=== PATIENT | male | born 1975 | race Two or more races ===

== ENCOUNTER 2021-11-09 12:44 | Emergency (ER) | payer OTHER, SELFPAY ==
--- NOTE | 2021-11-09 14:19 | ED_ITS ---
HPI - Psych General Chief Complaint: Psychiatric Symptoms Stated Complaint: depression,anxiety,suicidal Time Seen by Provider: 11/09/21 14:19 Source: patient Mode of arrival: ambulatory Limitations: no limitations History of Present Illness MD complaint: suicidal ideation, feels depressed and substance abuse Onset (ago): day(s) (3) Duration: constant Relieving factors: none Exacerbating factors: drug use Context: recent drug abuse and other (has not used suboxone in 3 days) Associated psychiatric symptoms: depression and suicidal ideation Associated symptoms: denies other symptoms Treatments prior to arrival: none Related Data Allergies Allergy/AdvReac Type Severity Reaction Status Date / Time No Known Allergies Allergy Unverified 11/09/21 15:14 Review of Systems Review of Systems: Constitutional : No Fever, No Chills ENT/Mouth : No Ear Pain, No Nasal Congestion, No sore throat Eyes: No Eye Pain, No Swelling, No Redness Cardiovascular : No Chest Pain, No SOB Respiratory : No Cough, No Sputum, No Dyspnea Gastrointestinal : No Nausea, No Vomiting, No Diarrhea, No Hematochezia, No M tonie Genitourinary : No Dysuria, No Urinary Frequency, No Hematuria Musculoskeletal : No Myalgias Skin : No Skin Lesions, No rash Neuro : No Weakness, No Numbness, No Paresthesias, No Dizziness, No Headache Psych : positive Anxiety, positive Depression, positive SI no HI Heme/Lymph: No Lymphadenopathy Endocrine : No Polyuria, No Polydipsia All other systems reviewed and are negative PENDING SALE TO [facility] Past Medical History Medical History Active substance abuse Depression Social History Social History (Updated 11/09/21 @ 14:29 by Joelle Jenkins DO) Patient Tobacco Use Status: Current someday Tobacco user Substance Use Type: Crack/Cocaine and Heroin Advance Directives: No Advance Directives Information Provided: No Physical Exam Vital Signs: Vital Signs: Last Vital Signs Temp 98.1 F 11/09/21 15:15 Pulse 63 11/09/21 15:15 Resp 18 11/09/21 15:15 BP 148/101 H 11/09/21 15:15 Pulse Ox 99 11/09/21 15:15 BMI result Body Mass Index 29.2 Appearance: Alert. Oriented X3. No acute distress. calm and cooperative Eyes: Pupils equal, round and reactive to light. ENT: Pharynx normal. Neck: Normal inspection. Neck supple. CVS: Normal heart rate and rhythm. Pulses normal. Respiratory: No respiratory distress. Breath sounds normal. Abdomen: Soft and nontender. Skin: Skin warm and dry. Normal skin color. Normal skin turgor. Extremities: No lower extremity edema. No calf ttp Neuro: Oriented X 3. No motor deficit. No sensory deficit. CN2-12 intact Course Course Course Narrative: Physician observation started at 739pm Patient placed in physician observation because the patient needed more time for [facility]N to assess him to determine the need for inpatient psychiatric admission. At the time observation was started the patient's vitals were stable, patient is alert and oriented but slightly anxious, Neuro: nonfocal, CV RRR, Lungs clear MDM - Psych MDM Narrative Medical decision making narrative: 46 yo male with substance abuse has not taken his suboxone in 3 days using heroin/cocaine now reports SI at this time - denies medical complaints will obtain labs, COVID swab, BHN consult, PRN ativan for withdrawals, will attempt to wait to start suboxone until tonight since he was using and could be fentanyl. Lab Data Labs: Lab Results 11/09/21 11/09/21 Range/Units 14:23 14:23 Urine Opiates Screen POSITIVE H (Not Detect) Urine Fentanyl Screen POSITIVE H (Not Detect) Ur Barbiturates Screen Not Detected (Not Detect) Ur Phencyclidine Scrn Not Detected (Not Detect) Ur Amphetamines Screen Not Detected (Not Detect) U Benzodiazepines Scrn Not Detected (Not Detect) Urine Cocaine Screen POSITIVE H (Not Detect) U Marijuana (THC) Screen POSITIVE H (Not Detect) COVID-19 ([facility]) Negative (Negative) COVID-19 Clin Com See Note Discharge Plan Discharge Clinical Impression: Active substance abuse Patient Disposition: Still a Patient
[2021-11-09 14:46] LABS: COVID-19 Test Negative (Negative)
[2021-11-09 14:48] LABS: Amphetamine Screen Urine Not Detected (Not Detect); Barbiturates, Urine Not Detected (Not Detect); Benzodiazepines Screen Urine Not Detected (Not Detect); Cannabinoid Screen Urine POSITIVE (Not Detect); Cocaine Screen Urine POSITIVE (Not Detect); Fentanyl, urine POSITIVE (Not Detect); Opiate Screen Urine POSITIVE (Not Detect); Phencyclidine Screen Urine Not Detected (Not Detect)
[2021-11-09 15:15] VITALS: BP 148/101; PULSE 63; RESP 18; TEMP 36.7; O2SAT 99; BMI 29.2
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
[2021-11-09] MEDS: LORazepam 1 MG TABLET PO (17:40)
[2021-11-09 22:12] LABS: MANUAL DIFF FLAG NO
[2021-11-09 22:13] LABS: Basophils Percent Auto 0.5 % (0-2); Eosinophils Absolute Auto 0.2 X10*3/uL (0.0-0.4); Eosinophils Percent Auto 3.7 % (0-4); Hematocrit 40.3 % (42.0-52.0); Hemoglobin 13.7 g/dl (14.0-18.0); Imm Gran Abs Auto 0.01 X10*3/uL (0.00-0.03); Imm Gran Pct Auto 0.2 % (0.0-0.4); Lymphocytes Absolute Auto 2.5 X10*3/uL (1.2-4.9); Lymphocytes Percent Auto 40.4 % (20-40); Mean Corpuscular Hemoglobin 29.8 pg (27.0-33.0); Mean Corpuscular Volume 87.6 fL (80.0-98.0); Monocytes Absolute Auto 0.7 X10*3/uL (0.1-1.2); Neutrophils Absolute Auto 2.8 x10*3/uL (2.0-8.3); Neutrophils Percent Auto 44.2 % (45-73); Platelet Count 228 X10*3/uL (160-400); Red Cell Distribution Width 12.2 % (11.0-16.0); White Blood Count 6.3 X10*3/uL (4.8-10.8)
[2021-11-09 22:30] LABS: Ethanol < 10 mg/dL
[2021-11-09 22:39] LABS: Alanine Aminotransferase 17 U/L (0-40); Albumin Level 3.8 g/dL (3.5-5.0); Alkaline Phosphatase 96 U/L (39-117); Anion Gap 8 (12-20); Aspartate Amino Transferase 14 U/L (5-37); Bilirubin Direct < 0.2 mg/dL (0.0-0.5); Bilirubin Total 0.2 mg/dL (0.0-1.0); Blood Urea Nitrogen 14 mg/dL (9-16); Calcium 9.3 mg/dL (8.4-10.2); Carbon Dioxide 33 mmol/L (22-29); Chloride 104 mmol/L (96-108); Estimated Glomerular Filt Rate > 60; Glucose Random 131 mg/dL (60-115); Potassium 3.2 mmol/L (3.3-5.1); Sodium 142 mmol/L (135-145); Total Protein 6.8 g/dL (6.5-8.0)
[2021-11-10 00:03] VITALS: BP 138/92; PULSE 76; RESP 20; TEMP 37.6; O2SAT 96
--- NOTE | 2021-11-10 06:05 | PC.NURSE ---
Patient slept through the night, no distress observed/reported, behavior cooperative, and non concerning, patient is not on any medication at this time except suboxone, appetite good, elimination intact, disposition per [facility] is section 12 inpatient bed search, VSS, will continue to monitor
--- NOTE | 2021-11-10 07:25 | PC.NURSE ---
patient appears to remain asleep at present respirations are even and unlabored patient appears in no distress
[2021-11-10] MEDS: cloNIDine HCL 0.1 MG TABLET PO (16:27)
== END 2021-11-10 16:58 ==
PROVIDERS: Emergency Provider Emergency Medicine
DX: F19.10 Other psychoactive substance abuse, uncomplicated (principal); F11.20 Opioid dependence, uncomplicated; F14.10 Cocaine abuse, uncomplicated; F41.9 Anxiety disorder, unspecified; F32.A Depression, unspecified; R45.851 Suicidal ideations; F17.200 Nicotine dependence, unspecified, uncomplicated; Z20.822 Contact with and (suspected) exposure to COVID-19; F12.90 Cannabis use, unspecified, uncomplicated
CPT/HCPCS: 36415; 80048; 80076; 80307; 82077; 85025; 87635; 99285

== ENCOUNTER 2022-04-12 00:23 | Emergency (ER) | payer OTHER, SELFPAY ==
[2022-04-12 01:12] VITALS: BP 136/90; PULSE 90; RESP 18; TEMP 36.8; O2SAT 96; BMI 42.5
--- NOTE | 2022-04-12 01:20 | PC.NURSE ---
Pt is refusing labs. Only wants something for nausea. Will notify provider.
[2022-04-12 01:47] LABS: COVID-19 Test Negative (Negative); IDNOW Serial# 16C4AD1C; Influenza A Negative (Negative); Influenza B2 Negative (Negative)
--- NOTE | 2022-04-12 01:49 | PC.NURSE ---
This RN attempt to draw pt labs, when this RN entered the room pt and pt visitor were gone, charge made aware. pt did not have an IV, pt did not receive medications.
== END 2022-04-12 02:08 | disposition left against medical advice (07) ==
PROVIDERS: Emergency Provider Emergency Medicine Emergency Medical Services
DX: R11.2 Nausea with vomiting, unspecified (principal); Z20.822 Contact with and (suspected) exposure to COVID-19
CPT/HCPCS: 87502; 87635; 99283; 99284

== ENCOUNTER 2022-04-15 01:58 | Emergency (ER) | payer OTHER, SELFPAY ==
[2022-04-15 02:16] VITALS: BP 146/97; PULSE 89; RESP 15; TEMP 37; O2SAT 94; BMI 31.5
--- NOTE | 2022-04-15 02:41 | PC.NURSE ---
pt bottom rt molar is cracked. states he has not had any fevers at home. scheduled to see dentist next week. cannot tolerate pain
== END 2022-04-15 03:31 | disposition left against medical advice (07) ==
PROVIDERS: Emergency Provider Emergency Medicine
DX: K08.89 Other specified disorders of teeth and supporting structures (principal)
CPT/HCPCS: 99281; 99284

== ENCOUNTER 2022-06-13 02:21 | Emergency (ER) | payer OTHER, SELFPAY ==
[2022-06-13 02:23] VITALS: BP 128/82
== END 2022-06-13 03:01 | disposition left against medical advice (07) ==
PROVIDERS: Emergency Provider Emergency Medicine
DX: M54.50 Low back pain, unspecified (principal)

== ENCOUNTER 2022-10-02 20:49 | Emergency (ER) | payer OTHER, SELFPAY ==
[2022-10-02 20:59] VITALS: BP 190/90; PULSE 110; RESP 18; O2SAT 97; BMI 24.8
--- NOTE | 2022-10-02 21:20 | PC.NURSE ---
pt alert and oriented steady gait, pt left on his own duing, pt skin warm and dry. no s/s of resp distress.
== END 2022-10-02 21:23 | disposition left against medical advice (07) ==
PROVIDERS: Emergency Provider Emergency Medicine Emergency Medical Services
DX: Z04.1 Encounter for examination and observation following transport accident (principal)
CPT/HCPCS: 99282

== ENCOUNTER 2022-10-04 00:41 | Emergency (ER) | payer OTHER, SELFPAY ==
[2022-10-04] VITALS (7 sets, daily range): BP systolic 115–148; BP diastolic 88–100; PULSE 74–90; RESP 15–20; TEMP 36.3–37.1; O2SAT 96–97; BMI 24.3
--- NOTE | 2022-10-04 01:23 | ED.GENADULT ---
HPI - General Adult General Chief complaint: General Medical Stated complaint: requesting Detox Time Seen by Provider: 10/04/22 01:23 Source: patient Mode of arrival: EMS Limitations: no limitations History of Present Illness HPI narrative: 46-year-old male who presents emergency by ambulance for evaluation of opiate withdrawal syndrome and requesting detox. The patient states that he was in a Suboxone program but has not been taking Suboxone for 1 month. He states that he has been sniffing 10 bags of heroin per day. He states that he last used heroin 2 days prior. He states that he is feeling dope sick. He complains body aches, bone pain, nausea, vomiting, sweats and diarrhea. He denied chest pain or shortness of breath. He denied fever, chills or cough. Related Data Home Medications Medication Instructions Recorded Confirmed buprenorphine 8 mg-naloxone 2 mg 1 strip sublingual BID 11/09/21 11/09/21 sublingual film (Suboxone) Previous Rx's Medication Instructions Recorded ondansetron 4 mg disintegrating 4 mg PO Q6-8H PRN nausea and 10/04/22 tablet vomiting #14 tabs Allergies Allergy/AdvReac Type Severity Reaction Status Date / Time No Known Allergies Allergy Unverified 11/09/21 15:14 Review of Systems Review of Systems: Yes all other systems are reviewed and are negative PMFSH Past Medical History [facility] Narrative: Past medical history: Heroin use disorder, depression, hypertension-noncompliant with medications. Past surgical history: None. Social history: He smokes 1 pack of cigarettes per day times 10 years. He denies alcohol use. He does admit to using heroin 10 bags intranasally daily. Medical History Active substance abuse Depression Social History Social History Alcohol intake: unknown Patient Tobacco Use Status: Tobacco use Unknown Substance Use Type: Crack/Cocaine and Heroin Advance Directives: No Advance Directives Information Provided: Yes Physical Exam ED Vital Signs: Vital Signs - 24 hr 10/04/22 00:49 10/04/22 03:59 10/04/22 06:36 Temperature 98.3 F 98.1 F 97.3 F Pulse Rate 75 74 90 Respiratory Rate 16 20 19 Blood Pressure 147/98 H 148/100 H 122/96 H Pulse Oximetry 97 96 96 Oxygen Delivery Method Room Air Room Air Room Air BMI result Body Mass Index 24.3 Const Other: Awake, alert, male patient, tremulous, answers questions appropriate HENMT Head: Yes normal to inspection, Yes normocephalic and Yes atraumatic Ears: external ears normal General nose exam: Normal external nose present Face and sinus: Yes normal facial exam Mouth: Normal oral and palatal mucosa present Throat: Yes posterior oropharynx normal Eyes General: appearance normal, both eyes and all related structures Pupils: Equal, round and reactive pupils present Neck Neck: Yes normal visual inspection, Yes no lymphadenopathy, Yes trachea midline and Yes supple Chest Chest palpation & inspection: normal inspection of the chest and normal palpation of entire chest wall Resp Effort & Inspection: normal respiratory effort and able to speak in complete sentences Auscultation: clear to auscultation bilaterally Cardio Rate: regular rate Rhythm: regular rhythm Heart sounds: S1 normal heart sound present, S2 normal heart sound present and no murmurs GI Inspection: Yes normal to inspection Palpation (GI): Soft to palpation, nontender and no guarding Auscultation: normal bowel sounds General: Yes no CVA tenderness Back/Spine/Pelvis Back: no CVA tenderness Skin General skin exam: no rashes or lesions noted Neuro Cranial nerves: Yes CN's II-XII intact bilaterally and Yes Equal, round and reactive pupils present Cognition (Neuro): normal cognition Motor exam (neuro): 5/5 motor strength present throughout Extrem General: Yes normal to inspection Psych Appearance: grossly normal Speech and movement: Normal speech and movement present Affect: normal affect Attitude: cooperative Thought process: Normal thought process present Thought content: Normal thought content present Course Course Course Narrative: 46-year-old male with a history of opiate use disorder who has been using intranasal heroin 10 bags per day for the last month who states that he is not used in 2 days and feels ?dope sick? and is requesting evaluation to get into a detox program. Patient does appear to be withdrawing from opiates. His physical examination is otherwise unremarkable. I did order laboratory evaluation includes CBC, CMP, urine tox screen, alcohol level, COVID-19, influenza and RSV testing. Patient will be treated with Suboxone 8/2 mg sublingually now see if this improves his withdrawal symptoms. 0434: Start physician observation: Patient's laboratory evaluation was unremarkable. Patient's RSV/flu/COVID tests were negative. Alcohol was below detectable limits. Urine drug screen is pending collection. The patient required a 2nd dose of Suboxone 8/2 mg sublingually. I did order Suboxone 8/2 mg b.i.d. while the patient is here in the emergency department. I did order a care to consult to evaluate the patient for detox program. The patient would like to continue with Suboxone. The patient will be kept in physician observation in the emergency department until appropriate disposition can be determined. 0642: Continue physician observation: The patient does feel better after receiving the 2 doses of Suboxone but does have persistent nausea. I did order Suboxone 8 mg/2 mg b.i.d. and the patient will get a another dose this morning. Patient is waiting for evaluation by care team. At the end of my shift, patient's care was turned over to my colleague, Dr. Yon Hamilton. Medications Administered Discontinued Medications Generic Name Dose Route Start Last Admin Trade Name Fregwyn PRN Reason Stop Dose Admin Buprenorphine/Naloxone 1 film 10/04/22 01:31 10/04/22 02:23 Buprenorphine/Naloxone 8/2 Mg Film SUBLINGUAL 10/04/22 01:32 1 film ONCE ONE Administration Buprenorphine/Naloxone 1 film 10/04/22 04:15 10/04/22 04:40 Buprenorphine/Naloxone 8/2 Mg Film SUBLINGUAL 10/04/22 04:16 1 film ONCE STA Administration Medical Decision Making Lab Data Result diagrams: 10/04/22 02:32 10/04/22 02:32 Labs: Lab Results 10/04/22 10/04/22 10/04/22 Range/Units 00:55 02:32 02:32 WBC 9.0 (4.8-10.8) X10*3/uL RBC 5.16 (4.60-5.80) X10*6/uL Hgb 15.2 (14.0-18.0) g/dl Hct 44.9 (42.0-52.0) % MCV 87.0 (80.0-98.0) fL MCH 29.5 (27.0-33.0) pg MCHC 33.9 (31.0-36.0) g/dl RDW 11.2 (11.0-16.0) % Plt Count 370 D (160-400) X10*3/uL MPV 9.5 (9.4-12.4) fL Immature Gran % (Auto) 0.3 (0.0-0.4) % Neut % (Auto) 72.3 (45-73) % Lymph % (Auto) 20.5 (20-40) % [place] % (Auto) 5.6 (2-11) % Eos % (Auto) 0.7 (0-4) % Baso % (Auto) 0.6 (0-2) % Lymph # (Auto) 1.8 (1.2-4.9) X10*3/uL [place] # (Auto) 0.5 (0.1-1.2) X10*3/uL Eos # (Auto) 0.1 (0.0-0.4) X10*3/uL Baso # (Auto) 0.1 (0.0-0.2) X10*3/uL Abs Immat Gran (auto) 0.03 (0.00-0.03) X10*3/uL Absolute Neuts (auto) 6.5 (2.0-8.3) x10*3/uL Absolute Nucleated RBC 0.000 (0.0-0.012) X10*3/uL Nucleated RBC % (auto) 0.0 (0.0-0.2) /100WBC Sodium 138 (135-145) mmol/L Potassium 3.9 D (3.3-5.1) mmol/L Chloride 105 (96-108) mmol/L Carbon Dioxide 24 (22-29) mmol/L Anion Gap 13 (12-20) BUN 8 L (9-16) mg/dL Creatinine 0.98 (0.5-1.4) mg/dL Estim Creat Clear Calc 95.1 Estimated GFR > 60 Random Glucose 98 (60-115) mg/dL Calcium 9.4 (8.4-10.2) mg/dL Total Bilirubin 0.8 (0.0-1.0) mg/dL AST 12 (5-37) U/L ALT 9 (0-40) U/L Alkaline Phosphatase 86 (39-117) U/L Total Protein 6.9 (6.5-8.0) g/dL Albumin 3.9 (3.5-5.0) g/dL Ethyl Alcohol < 10 mg/dL Influenza Type A (PCR) NEGATIVE (Negative) Influenza Type B (PCR) NEGATIVE (Negative) RSV RNA Qual (PCR) NEGATIVE (Negative) SARS-CoV-2 RNA (RT-PCR) NEGATIVE (Negative) Discharge Plan Discharge Clinical Impression: Opiate withdrawal, Opiate use Patient Disposition: Still a Patient Prescriptions: New ondansetron 4 mg tablet,disintegrating 4 mg PO Q6-8H PRN (Reason: nausea and vomiting) Qty: 14 0RF No Action buprenorphine-naloxone [Suboxone] 8-2 mg film 1 strip sublingual BID
[2022-10-04 01:37] LABS: Influenza A PCR NEGATIVE (Negative); Influenza B PCR NEGATIVE (Negative); Resp Syncy Virus RNA Qual PCR NEGATIVE (Negative); SARS COV2 PCR INHOUSE NEGATIVE (Negative)
[2022-10-04] MEDS: Buprenorphine/Naloxone 8/2 mg FILM 1 FILM SUBLINGUAL ×3 (02:23→10:55)
[2022-10-04 02:36] LABS: MANUAL DIFF FLAG NO
[2022-10-04 02:39] LABS: Basophils Absolute Auto 0.1 X10*3/uL (0.0-0.2); Basophils Percent Auto 0.6 % (0-2); Eosinophils Absolute Auto 0.1 X10*3/uL (0.0-0.4); Eosinophils Percent Auto 0.7 % (0-4); Hematocrit 44.9 % (42.0-52.0); Hemoglobin 15.2 g/dl (14.0-18.0); Imm Gran Abs Auto 0.03 X10*3/uL (0.00-0.03); Imm Gran Pct Auto 0.3 % (0.0-0.4); Lymphocytes Absolute Auto 1.8 X10*3/uL (1.2-4.9); Lymphocytes Percent Auto 20.5 % (20-40); Mean Corpuscular HGB Conc 33.9 g/dl (31.0-36.0); Mean Corpuscular Hemoglobin 29.5 pg (27.0-33.0); Mean Platelet Volume 9.5 fL (9.4-12.4); Monocytes Absolute Auto 0.5 X10*3/uL (0.1-1.2); Monocytes Percent Auto 5.6 % (2-11); Neutrophils Absolute Auto 6.5 x10*3/uL (2.0-8.3); Neutrophils Percent Auto 72.3 % (45-73); Platelet Count 370 X10*3/uL (160-400); Red Blood Count 5.16 X10*6/uL (4.60-5.80); Red Cell Distribution Width 11.2 % (11.0-16.0)
[2022-10-04 03:01] LABS: Alanine Aminotransferase 9 U/L (0-40); Albumin Level 3.9 g/dL (3.5-5.0); Alkaline Phosphatase 86 U/L (39-117); Anion Gap 13 (12-20); Aspartate Amino Transferase 12 U/L (5-37); Bilirubin Total 0.8 mg/dL (0.0-1.0); Blood Urea Nitrogen 8 mg/dL (9-16); Calcium 9.4 mg/dL (8.4-10.2); Carbon Dioxide 24 mmol/L (22-29); Chloride 105 mmol/L (96-108); Creatinine Clr Calc Pharmacy 95.1; Estimated Glomerular Filt Rate > 60; Ethanol < 10 mg/dL; Glucose Random 98 mg/dL (60-115); Potassium 3.9 mmol/L (3.3-5.1); Sodium 138 mmol/L (135-145); Total Protein 6.9 g/dL (6.5-8.0)
--- NOTE | 2022-10-04 04:18 | PC.NURSE ---
Pt's condition had improved following suboxone administration but has now started to change. Pt reported an episode of vomiting. Pt's HR and BP have increased. These symptoms did not occur immediately after receiving suboxone so it is unlikely that pt is experiencing precipitated withdrawal. Provider made aware of pt condition. Provider ordered another dose of suboxone to treat opioid withdrawal.
--- NOTE | 2022-10-04 10:16 | MHC.RECOVRN ---
This policy writer typist met w/ pt. Pt was sleeping upon entering room, awake to verbal stimuli. Pt states has been using 10 bags of heroin IN daily for past month. Pt states prior to this month was receiving Suboxone for 2 years and in recovery. Pt states has hx of treatment, including one week ago went to detox at [facility]. Pt states did not complete detox and left [facility]. Pt reports started using opiates at age 35, no hx of overdoses. Pt interested in detox, pt preference is to stay in [facility] for treatment. Pt reports body ache, chills, restless legs, visibly diaphoretic.
--- NOTE | 2022-10-04 11:01 | PHA.MEDREC ---
Pharmacy Consult ? Medication Reconciliation Pharmacy has completed the medication reconciliation.
[2022-10-04 12:47] LABS: Amphetamine Screen Urine Not Detected (Not Detect); Barbiturates, Urine Not Detected (Not Detect); Benzodiazepines Screen Urine Not Detected (Not Detect); Cannabinoid Screen Urine Not Detected (Not Detect); Cocaine Screen Urine POSITIVE (Not Detect); Fentanyl, urine POSITIVE (Not Detect); Opiate Screen Urine POSITIVE (Not Detect); Phencyclidine Screen Urine Not Detected (Not Detect)
--- NOTE | 2022-10-04 13:47 | MHC.RECOVRN ---
This typewriter mechanic spoke w/ Agusto at [facility] and confirmed, Pt has been accepted to [facility], admission time 15:00. Pt aware and agreeable. [employer] scheduled for pickup at 2:30pm. Provider aware of plan of care.
== END 2022-10-04 14:24 ==
PROVIDERS: Emergency Provider Emergency Medicine Emergency Medical Services
DX: F11.23 Opioid dependence with withdrawal (principal)
CPT/HCPCS: 0241U; 36415; 80053; 80307; 82077; 85025; 99284

== ENCOUNTER 2022-11-03 03:17 | Emergency (ER) | payer OTHER, SELFPAY ==
[2022-11-03 03:25] VITALS: BP 152/94; PULSE 102; O2SAT 96
[2022-11-03 03:26] VITALS: BP 150/99; PULSE 98; RESP 18; TEMP 36.8; O2SAT 97; BMI 40.1
--- NOTE | 2022-11-03 04:24 | PC.NURSE ---
Pt called to take back to a room, pt not in waiting room.
--- NOTE | 2022-11-03 04:45 | PC.NURSE ---
Pt called to go to room, pt not in waiting room.
--- NOTE | 2022-11-03 04:56 | PC.NURSE ---
Pt called to go to a room, pt not in waiting room.
== END 2022-11-03 04:58 | disposition left against medical advice (07) ==
PROVIDERS: Emergency Provider Emergency Medicine
DX: M54.50 Low back pain, unspecified (principal)
CPT/HCPCS: 99281

== ENCOUNTER 2023-01-30 09:23 | Emergency (ER) | payer OTHER, SELFPAY ==
[2023-01-30 09:25] VITALS: BP 136/78; PULSE 63; O2SAT 99
[2023-01-30 09:33] VITALS: BP 131/91; PULSE 66; RESP 18; TEMP 36.6; O2SAT 98; BMI 30.7
--- NOTE | 2023-01-30 09:59 | ED_ITS ---
HPI - Psych General Chief Complaint: General Medical Stated Complaint: WANTS DETOX,LAST DRINK ONE DAY PER EMS Time Seen by Provider: 01/30/23 09:41 Source: patient Mode of arrival: ambulatory Limitations: no limitations History of Present Illness HPI Narrative: 47yoM with a PMHX of heroin substance abuse with presenting to the ER with request for detox. Reports that he last Lyft heroin yesterday. Reports he uses approximately 1-1/2 bundles a day. Reports he was last at [facility] a few months ago which helped. He is not homeless. He denies any other drug or alcohol usage. He denies any fevers, chills, dizziness, headaches, neck pain/stiffness, trouble swallowing or breathing, chest pain or shortness of breath, dyspnea on exertion orthopnea, palpitations, paresthesias, nausea/vomiting/diarrhea constipation, black or bloody stools, dysuria, penile discharge, rashes, recent falls or traum a, recent sick contacts, SI/HI/auditory or visual hallucinations thoughts of self-injury or any other symptoms complaints or concerns at this time. MD complaint: substance abuse (Sniffing heroin) and other (Requesting detox) Onset (ago): year(s) Duration: constant History of same: Yes Relieving factors: none Exacerbating factors: drug use Context: recent drug abuse (Last use last night) Associated symptoms: denies other symptoms Treatments prior to arrival: none Related Data Home Medications Medication Instructions Recorded Confirmed buprenorphine 8 mg-naloxone 2 mg 1 strip sublingual BID 11/09/21 11/09/21 sublingual film (Suboxone) albuterol sulfate 90 mcg/actuation 2 puff inhalation Q4-6H PRN 10/04/22 10/04/22 aerosol inhaler (ProAir HFA) Wheezing gabapentin 300 mg capsule 1 cap PO TID 10/04/22 10/04/22 meloxicam 15 mg tablet 1 tab PO DAILY 10/04/22 10/04/22 Previous Rx's Medication Instructions Recorded ondansetron 4 mg disintegrating 4 mg PO Q6-8H PRN nausea and 10/04/22 tablet vomiting #14 tabs Allergies Allergy/AdvReac Type Severity Reaction Status Date / Time No Known Allergies Allergy Unverified 11/09/21 15:14 Review of Systems Review of Systems: Constitutional : No Fever, No Chills ENT/Mouth : No Ear Pain, No Nasal Congestion, No sore throat Eyes: No Eye Pain, No Swelling, No Redness Cardiovascular : No Chest Pain, No SOB Respiratory : No Cough, No Sputum, No Dyspnea Gastrointestinal : No ingestions, No Nausea, No Vomiting, No Diarrhea, No Hematochezia, No Melena Genitourinary : No Dysuria, No Urinary Frequency, No Hematuria Musculoskeletal : No Myalgias Skin : No Skin Lesions, No rash Neuro : No Weakness, No Numbness, No Paresthesias, No Dizziness, No Headache Psych : No Anxiety, No Depression,No SI, No thoughts of self injury, No HI, No AVH, Heme/Lymph: No Lymphadenopathy Endocrine : No Polyuria, No Polydipsia + substance abuse Yes all other systems are reviewed and are negative PENDING SALE TO [facility] Past Medical History Attestation statement: The following information was validated with the patient. Source: old records reviewed and nursing notes reviewed Medical History Active substance abuse Depression Social History Social History Alcohol intake: unknown Patient Tobacco Use Status: Tobacco use Unknown Substance Use Type: Crack/Cocaine and Heroin Advance Directives: No Advance Directives Information Provided: No Physical Exam Vital Signs: Vital Signs: Last Vital Signs Temp 98 F 01/30/23 09:33 Pulse 66 01/30/23 09:33 Resp 18 01/30/23 09:33 BP 131/91 H 01/30/23 09:33 Pulse Ox 98 01/30/23 09:33 O2 Del Method Room Air 01/30/23 09:33 BMI result Body Mass Index 30.7 vital signs have been reviewed as normal and appeared to be correct. Blood pressure 131/01. Heart rate normal. Respiration rate normal. Temperature normal. Oxygen saturation normal. Appearance: Alert. Oriented X3. No acute distress. Head: Normal external exam. Normocephalic. Atraumatic. No Marquez signs noted. No raccoon eyes noted Eyes: PERRLA. EOMI. Conjunctiva and sclera normal. Eyelids normal. ENT: EAC normal. TM's Normal. Pharynx normal. Uvula midline. Moist mucous membranes. No trismus noted. No drooling noted. No muffled voice noted. Neck: Normal inspection. Neck supple. FROM. No adenopathy. Thyroid Normal. No meningeal signs. No neck mass noted. CVS: Normal heart rate and rhythm. Heart sound normal. No murmurs noted. Pulses normal throughout. Respiratory: No respiratory distress. Painless inspiration. Breath sounds normal. No wheezes/rales/rhonchi noted. Chest nontender. No accessory muscle usage noted or decreased air movement noted. Abdomen: Soft and nontender. Bowel sounds normal in all 4 quadrants. No distention noted. No organomegaly noted. No visible injury noted. Back: No CVA tenderness. Full range of motion noted. Skin: Skin warm and dry. Normal skin color. Normal skin turgor. No rashes/lesions/lacerations noted. Extremities: No lower extremity edema. Extremities exhibit normal range of motion. Extremities nontender. Neuro: Oriented X 3. No motor deficit. No sensory deficit. Reflexes normal. CN's II-XII intact bilaterally? Psych: Appearance grossly normal, well-kept, mental status normal, speech and movement normal, speech clear, normal affect. Is cooperative. Normal thought process. Normal thought content. Normal good insight. Judgment good. Course Course Course Narrative: 10am - This patient presents with request for detox from heroin useage. Reports he uses approximately 1-1/2 bundles that he sniffed daily. Last use last night. Miriam das has an apartment is not homeless. Denies any SI/HI/auditory or visual sensation or thoughts of self-injury. Presentation not consistent with acute organic causes to include delirium, dementia or drug induced disorders (acute ingestions or withdrawal; no evidence of toxidrome). Given the H&P, I suspect this patient is NOT suicidal/homicidal/gravely disabled and will NOT require psychiatric care. Although will benefit from detox. At this time will obtain labs including EtOH and drugs of abuse screen. Then consult care team for possible detox placement will re-evaluate. Reevaluation(s) Reevaluation #1: Labs are all within normal limits. Patient positive for opioids/fentanyl and cocaine negative for EtOH negative for COVID. Care team reported that there are no beds at this time due to patient is banned from [facility]. Therefore no other detox beds are available at this time. Patient continues to deny any SI/HI/auditory or visual hallucinations thoughts of self-injury therefore patient will be discharged with instructions to continue calling detox centers himself and to return if any new or worsening symptoms. He understands agrees with the plan. Time: 18:57 Medications Administered Discontinued Medications Generic Name Dose Route Start Last Admin Trade Name Garrett PRN Reason Stop Dose Admin Lorazepam 1 mg 01/30/23 18:02 01/30/23 18:13 Lorazepam 1 Mg Tablet PO 01/30/23 18:03 1 mg ONCE ONE Administration Ondansetron HCl 4 mg 01/30/23 17:59 01/30/23 18:13 Ondansetron Odt 4 Mg Tab.Rapdis TRANSLINGU 01/30/23 18:00 4 mg ONCE ONE Administration Medical Decision Making Lab Data [facility] Lab Attestation statement: I reviewed the patient's lab results. 01/30/23 10:36 01/30/23 10:36 Labs: Lab Results 01/30/23 01/30/23 01/30/23 Range/Units 10:36 10:36 10:36 WBC 7.1 (4.8-10.8) X10*3/uL RBC 5.14 (4.60-5.80) X10*6/uL Hgb 15.2 (14.0-18.0) g/dl Hct 44.9 (42.0-52.0) % MCV 87.4 (80.0-98.0) fL MCH 29.6 (27.0-33.0) pg MCHC 33.9 (31.0-36.0) g/dl RDW 11.6 (11.0-16.0) % Plt Count 223 D (160-400) X10*3/uL MPV 10.1 (9.4-12.4) fL Immature Gran % (Auto) 0.3 (0.0-0.4) % Neut % (Auto) 74.5 H (45-73) % Lymph % (Auto) 18.3 L (20-40) % [place] % (Auto) 5.0 (2-11) % Eos % (Auto) 1.3 (0-4) % Baso % (Auto) 0.6 (0-2) % Lymph # (Auto) 1.3 (1.2-4.9) X10*3/uL [place] # (Auto) 0.4 (0.1-1.2) X10*3/uL Eos # (Auto) 0.1 (0.0-0.4) X10*3/uL Baso # (Auto) 0.0 (0.0-0.2) X10*3/uL Abs Immat Gran (auto) 0.02 (0.00-0.03) X10*3/uL Absolute Neuts (auto) 5.3 (2.0-8.3) x10*3/uL Absolute Nucleated RBC 0.000 (0.0-0.012) X10*3/uL Nucleated RBC % (auto) 0.0 (0.0-0.2) /100WBC Sodium 141 (135-145) mmol/L Potassium 4.3 (3.3-5.1) mmol/L Chloride 109 H (96-108) mmol/L Carbon Dioxide 22 (22-29) mmol/L Anion Gap 14 (12-20) BUN 19 H (9-16) mg/dL Creatinine 1.02 (0.5-1.4) mg/dL Estim Creat Clear Calc 102.3 Estimated GFR > 60 Random Glucose 115 (60-115) mg/dL Calcium 9.1 (8.4-10.2) mg/dL Magnesium 2.3 (1.6-2.6) mg/dL Total Bilirubin 0.7 (0.0-1.0) mg/dL AST 16 (5-37) U/L ALT 12 (0-40) U/L Alkaline Phosphatase 77 (39-117) U/L Total Protein 6.5 (6.5-8.0) g/dL Albumin 4.0 (3.5-5.0) g/dL Ethyl Alcohol < 10 mg/dL COVID-19 ([facility]) Negative (Negative) COVID-19 Clin Com See Note External Record Review I reviewed the patient's prior ER visits that are accessible in our system. Chronic Conditions Patient?s care impacted by: Other (Substance abuse) Discharge Plan Discharge Clinical Impression: Active substance abuse Patient Disposition: Home, Self-Care Instructions: Polysubstance Abuse (ED) Prescriptions: No Action buprenorphine-naloxone [Suboxone] 8-2 mg film 1 strip sublingual BID ondansetron 4 mg tablet,disintegrating 4 mg PO Q6-8H PRN (Reason: nausea and vomiting) Qty: 14 0RF meloxicam 15 mg tablet 1 tab PO DAILY gabapentin 300 mg capsule 1 cap PO TID albuterol sulfate [ProAir HFA] 90 mcg/actuation HFA aerosol inhaler 2 puff INHALATION Q4-6H PRN (Reason: Wheezing) Referrals: Physician,None [Primary Care Provider] - 2 days (Your PCP as needed)
--- NOTE | 2023-01-30 10:33 | ECG_ITS ---
Test Reason : DETOX Blood Pressure : / mmHG Vent. Rate : 088 BPM Atrial Rate : 088 BPM P-R Int : 156 ms QRS Dur : 092 ms QT Int : 408 ms P-R-T Axes : 070 065 058 degrees QTc Int : 493 ms Normal sinus rhythm Prolonged QT Abnormal ECG No previous ECGs available Referred By: Christina Wyatt Electronically Signed By:LORIN FOSTER
[2023-01-30 10:41] LABS: MANUAL DIFF FLAG NO
[2023-01-30 10:44] LABS: Basophils Percent Auto 0.6 % (0-2); Eosinophils Absolute Auto 0.1 X10*3/uL (0.0-0.4); Eosinophils Percent Auto 1.3 % (0-4); Hematocrit 44.9 % (42.0-52.0); Hemoglobin 15.2 g/dl (14.0-18.0); Imm Gran Abs Auto 0.02 X10*3/uL (0.00-0.03); Imm Gran Pct Auto 0.3 % (0.0-0.4); Lymphocytes Absolute Auto 1.3 X10*3/uL (1.2-4.9); Lymphocytes Percent Auto 18.3 % (20-40); Mean Corpuscular HGB Conc 33.9 g/dl (31.0-36.0); Mean Corpuscular Hemoglobin 29.6 pg (27.0-33.0); Mean Corpuscular Volume 87.4 fL (80.0-98.0); Mean Platelet Volume 10.1 fL (9.4-12.4); Monocytes Absolute Auto 0.4 X10*3/uL (0.1-1.2); Neutrophils Absolute Auto 5.3 x10*3/uL (2.0-8.3); Neutrophils Percent Auto 74.5 % (45-73); Platelet Count 223 X10*3/uL (160-400); Red Blood Count 5.14 X10*6/uL (4.60-5.80); Red Cell Distribution Width 11.6 % (11.0-16.0); White Blood Count 7.1 X10*3/uL (4.8-10.8)
[2023-01-30 10:57] LABS: COVID-19 Test Negative (Negative); IDNOW Serial# 08D9AD1C
[2023-01-30 11:02] LABS: Alanine Aminotransferase 12 U/L (0-40); Alkaline Phosphatase 77 U/L (39-117); Anion Gap 14 (12-20); Aspartate Amino Transferase 16 U/L (5-37); Bilirubin Total 0.7 mg/dL (0.0-1.0); Blood Urea Nitrogen 19 mg/dL (9-16); Calcium 9.1 mg/dL (8.4-10.2); Carbon Dioxide 22 mmol/L (22-29); Chloride 109 mmol/L (96-108); Creatinine Clr Calc Pharmacy 102.3; Estimated Glomerular Filt Rate > 60; Ethanol < 10 mg/dL; Glucose Random 115 mg/dL (60-115); Magnesium 2.3 mg/dL (1.6-2.6); Potassium 4.3 mmol/L (3.3-5.1); Sodium 141 mmol/L (135-145); Total Protein 6.5 g/dL (6.5-8.0)
[2023-01-30] MEDS: Ondansetron ODT 4 MG TAB.RAPDIS TRANSLINGU (18:13)
[2023-01-30] MEDS: LORazepam 1 MG TABLET PO (18:13)
--- NOTE | 2023-01-30 18:19 | MHC.CARE ---
CARE team clinician met with pt to discuss treatment options. Pt is advocating to be discharged to detox. [facility] stated pt is on do not admit list unless he is being d/c from an inpatient unit. Pt has historically presented to [facility] without psych meds and leaves prior to completing treatment. CARE team clinician exhausted search for male detox bed within 100 mile radius. Pt denies SI/HI/AVH. CARE team consulted with ED JEAN-CLAUDE Wyatt, plan is for pt to be discharged home and he will follow up with detox from the community
== END 2023-01-30 20:03 | disposition home or self-care (01) ==
PROVIDERS: Physician Assistant Medical; Emergency Provider Emergency Medicine
DX: F11.10 Opioid abuse, uncomplicated (principal); F14.10 Cocaine abuse, uncomplicated; Z20.822 Contact with and (suspected) exposure to COVID-19; Z20.828 Contact with and (suspected) exposure to other viral communicable diseases; Z79.899 Other long term (current) drug therapy; Z71.51 Drug abuse counseling and surveillance of drug abuser
CPT/HCPCS: 36415; 80053; 82077; 83735; 85025; 87635; 93005; 99283

== ENCOUNTER 2023-03-28 11:45 | Emergency (ER) | payer MEDICAID, SELFPAY ==
[2023-03-28 11:50] VITALS: BP 140/90; PULSE 66; O2SAT 97
--- NOTE | 2023-03-28 12:15 | ED_ITS ---
HPI - General Adult General Chief complaint: ETOH/Substance Use Stated complaint: wants detox per ems Time Seen by Provider: 03/28/23 13:44 Source: patient Mode of arrival: ambulatory Limitations: no limitations History of Present Illness HPI narrative: Patient is a 47 year old assigned male at with a history of drug use/abuse presenting to the emergency department today requesting detox placement. Patient states that he inhales heroin and would like to be placed in a detox for that. Patient denies any dizziness, lightheadedness, abdominal pain, vomiting, fever, chills, blurry vision, double vision, loss of vision, chest pain, difficulty breathing, shortness of breath, back pain, night sweats, pain with urination, increased urinary frequency, increased urinary urgency, blood in his urine or stool, syncope or a near syncopal episode, recent trauma or falls, bowel incontinence, bladder incontinence, bowel retention, bladder retention, or any other complaints at this time. Severity: mild Relieving factors: none Exacerbating factors: none Associated symptoms: nausea/vomiting Treatments prior to arrival: none Related Data Home Medications Medication Instructions Recorded Confirmed buprenorphine 8 mg-naloxone 2 mg 1 strip sublingual BID 11/09/21 11/09/21 sublingual film (Suboxone) albuterol sulfate 90 mcg/actuation 2 puff inhalation Q4-6H PRN 10/04/22 10/04/22 aerosol inhaler (ProAir HFA) Wheezing gabapentin 300 mg capsule 1 cap PO TID 10/04/22 10/04/22 meloxicam 15 mg tablet 1 tab PO DAILY 10/04/22 10/04/22 Previous Rx's Medication Instructions Recorded ondansetron 4 mg disintegrating 4 mg PO Q6-8H PRN nausea and 10/04/22 tablet vomiting #14 tabs Allergies Allergy/AdvReac Type Severity Reaction Status Date / Time No Known Allergies Allergy Unverified 11/09/21 15:14 Review of Systems Constitutional: Constitutional: Reports no additional constitutional complaints, Denies chills, Denies fever(s) and Denies night sweats Eyes: Eyes: Reports no additional eye complaints, Denies blurry vision, Denies change in vision, Denies diplopia, Denies eye discharge, Denies loss of vision and Denies eye pain ENT: Denies dizziness Cardiovascular: Cardiovascular: Reports no additional cardiovascular complaints, Denies chest pain, Denies lightheadedness, Denies Loss of Consciousness and Denies dyspnea Respiratory: Respiratory: Reports no additional respiratory complaints and Denies dyspnea Gastrointestinal: Gastrointestinal: Reports no additional gastrointestinal complaints, Denies abdominal pain, Denies melena, Denies hematochezia, Denies change in bowel habits, Denies change in stool character and Reports nausea Genitourinary: Genitourinary: Reports no additional male genitourinary complaints, Denies hematuria, Denies oliguria, Denies difficulty urinating, Denies dysuria, Denies urinary frequency, Denies urinary hesitancy, Denies urinary incontinence and Denies urinary urgency Musculoskeletal: Musculoskeletal: Reports no additional musculoskeletal complaints, Denies numbness and Denies tingling Neurologic: Denies dizziness, Denies loss of vision, Denies numbness and Denies tingling Psychiatric: Psychiatric: Reports no additional psychiatric complaints Endocrine: Endocrine: Reports no additional endocrine complaints Hematologic/Lymphatic: Hematologic/Lymphatic: Reports no additional hematologic/lymphatic complaints Allergic/Immunologic: Allergic/Immunologic: Reports no additional allergic/immunologic complaints PMFSH Past Medical History Attestation statement: The following information was validated with the patient. Source: old records reviewed and nursing notes reviewed Medical History Active substance abuse Depression Social History Social History Alcohol intake: unknown Patient Tobacco Use Status: Tobacco use Unknown Substance Use Type: Crack/Cocaine and Heroin Advance Directives: No Advance Directives Information Provided: No Physical Exam ED Vital Signs: Vital Signs - 24 hr 03/28/23 12:16 Temperature 98.5 F Pulse Rate 80 Respiratory Rate 20 Blood Pressure 138/88 Pulse Oximetry 97 Oxygen Delivery Method Room Air BMI result Body Mass Index 28.7 Const General: cooperative, no acute distress, alert and awake Nutritional Appearance: well nourished Orientation/consciousness: patient oriented x3 Limitations: no limitations HENMT Head: Yes normal to inspection and Yes atraumatic Ears: hearing grossly normal bilaterally and external ears normal General nose exam: Normal external nose present, no nasal discharge noted and no epistaxis Face and sinus: Yes normal facial exam, No abrasion and No laceration Mouth: Normal oral and palatal mucosa present, no drooling and no muffled voice Eyes General: appearance normal, both eyes and all related structures Periorbital: periorbital findings normal Eyelids: Yes eyelids normal Conjunctivae: conjunctivae normal Pupils: Equal, round and reactive pupils present EOM: EOMs intact bilaterally Neck Neck: Yes normal visual inspection, Yes full ROM and Yes no lymphadenopathy Chest Chest palpation & inspection: normal inspection of the chest Resp Effort & Inspection: normal respiratory effort and able to speak in complete sentences Auscultation: clear to auscultation bilaterally Cardio Rate: regular rate Rhythm: regular rhythm GI Inspection: Yes normal to inspection Neuro General: patient oriented x3 and moves all extremities Cranial nerves: Yes Equal, round and reactive pupils present Cognition (Neuro): normal cognition Motor exam (neuro): 5/5 motor strength present throughout Sensory Exam: Normal double simultaneous stimulation for sensation Coordination: [id number] test normal Extrem General: Yes normal to inspection, Yes full ROM and Yes capillary refill normal Psych Appearance: grossly normal Mental Status: mental status grossly normal Affect: normal affect Attitude: cooperative Thought process: Normal thought process present Thought content: Normal thought content present Insight: Good insight present (Psych) Course Course Course Narrative: This is a rapid medical exam. deferred additional HPI, ROS, PE to primary provider. 47 yo male here looking for inpatient detox for heroin. Not interested in starting sub/methadone and being discharged from ER. NO SI/HI. C/o nausea/vomiting, Will obtain CAMARA, give zofran. VSS Medications Administered Discontinued Medications Generic Name Dose Route Start Last Admin Trade Name Freq PRN Reason Stop Dose Admin Ondansetron HCl 4 mg 03/28/23 12:16 03/28/23 12:19 Ondansetron Odt 4 Mg Tab.Rapdis TRANSLINGU 03/28/23 12:17 4 mg ONCE ONE Administration Medical Decision Making Medical Decision Making MDM Narrative: Patient is a 47 year old assigned male at with a history of drug use/abuse presenting to the emergency department today requesting detox placement. Patient's physical exam was unremarkable. Patient met with the recovery team who got him placed in [facility] however, they are unable to take him until 10pm tonight (03/28/2023). I explained my physical exam findings to the patient. I answered all questions asked by the patient. Patient received ODT Zofran which he stated helped his nausea significantly. I stressed the importance of the patient taking his medication as prescribed. I stressed the importance of the patient following up with his primary care provider. I stressed the importance of the patient returning to the emergency department immediately if his symptoms were to worsen or if he were to develop any dizziness, shortness of breath, difficulty breathing, chest pain, blurry vision, loss of vision, nausea, vomiting, abdominal pain, fever, chills, back pain, or any other complaints. Patient verbalized agreement and understanding with this treatment plan and discharge to [facility] at 10pm tonight. Differential Diagnosis Differential Diagnoses: The differential diagnosis associated with the presentation includes drug use / abuse Consult Healthcare Provider Management of the patient was discussed with: Behavioral Health Provider (spoke to recovery team as noted in the MDM portion of this chart) Critical Care Time Critical Care Time Critical Care Time: Yes Total Critical Care Time: 30 Attestation: I spent 30 minutes of Critical Care Time with this patient. This does not include time spent on separately reported billable procedures. Discharge Plan Discharge Clinical Impression: Active substance abuse Patient Disposition: Home, Self-Care Instructions: Narcotic Use Disorder (ED) Additional Instructions: Please proceed to [facility] rehab as arranged by our recovery team. Follow up with your primary care provider. Return to the emergency department immediately if your symptoms worsen or if you develop any dizziness, shortness of breath, difficulty breathing, chest pain, blurry vision, loss of vision, nausea, vomiting, abdominal pain, fever, chills, back pain, or any other complaints. Prescriptions: No Action buprenorphine-naloxone [Suboxone] 8-2 mg film 1 strip sublingual BID ondansetron 4 mg tablet,disintegrating 4 mg PO Q6-8H PRN (Reason: nausea and vomiting) Qty: 14 0RF meloxicam 15 mg tablet 1 tab PO DAILY gabapentin 300 mg capsule 1 cap PO TID albuterol sulfate [ProAir HFA] 90 mcg/actuation HFA aerosol inhaler 2 puff INHALATION Q4-6H PRN (Reason: Wheezing) Referrals: [facility] [[place] Group] (Call to establish and follow up with a primary care provider. If you already have one, please follow up with them.) [facility]] (Call to establish and follow up with a primary care provider. If you already have one, please follow up with them.) [facility] [Provider Group] (Call to establish and follow up with a primary care provider. If you already have one, please follow up with them.) Print Language: Micronesian
[2023-03-28 12:16] VITALS: BP 138/88; PULSE 80; RESP 20; TEMP 36.9; O2SAT 97; BMI 28.7
[2023-03-28] MEDS: Ondansetron ODT 4 MG TAB.RAPDIS TRANSLINGU ×2 (12:19→17:19)
--- NOTE | 2023-03-28 13:57 | MHC.RECOVRN ---
Met with pt in [place] to discuss substance use and desire for treatment. Pt reports using heroin, 1 bundle daily, [place], last use yesterday. Denies other substances. Pt reports last ATS approx 2 months ago, does not recall where. Pt reports hx Suboxone, has never been on methadone. Per Kimberly, last Suboxone rx 11/16/22, 4 day prescription, 24 mg daily. Pt interested in ATS at this time. Bedsearch commenced.
--- NOTE | 2023-03-28 15:23 | MHC.RECOVRN ---
Pt accepted to [facility] for 10PM admission. Fireman to arrange transportation this evening.
--- NOTE | 2023-03-28 18:14 | MHC.RECOVSUP ---
? Reason for consult Recovery support o Current location: [facility] o Identified substance use concern: Heroin - Seeking ATS (detox) - Support ? Intervention: o Harm reduction discussion ? Plan: o Patient to follow up with [facility] after discharge ? Additional information: Patient seeking Detox, Patient Has a Bed For [facility] at 10pm. golf coach had a harm reduction talk with patient..
[2023-03-28 20:15] VITALS: BP 138/99; PULSE 81; RESP 19; TEMP 36.7; O2SAT 98
== END 2023-03-28 20:16 | disposition home or self-care (01) ==
PROVIDERS: Emergency Provider Emergency Medicine
DX: F19.10 Other psychoactive substance abuse, uncomplicated (principal); R11.2 Nausea with vomiting, unspecified; F11.20 Opioid dependence, uncomplicated; Z79.899 Other long term (current) drug therapy
CPT/HCPCS: 99282; 99284

== ENCOUNTER 2023-08-16 12:47 | Outpatient (REF) | payer MEDICAID, SELFPAY ==
[2023-08-16 15:56] LABS: MANUAL DIFF FLAG NO
[2023-08-16 16:06] LABS: Basophils Percent Auto 0.6 % (0-2); Eosinophils Absolute Auto 0.1 X10*3/uL (0.0-0.4); Eosinophils Percent Auto 1.3 % (0-4); Hematocrit 42.9 % (42.0-52.0); Hemoglobin 13.9 g/dl (14.0-18.0); Imm Gran Abs Auto 0.03 X10*3/uL (0.00-0.03); Imm Gran Pct Auto 0.4 % (0.0-0.4); Lymphocytes Absolute Auto 1.2 X10*3/uL (1.2-4.9); Lymphocytes Percent Auto 17.3 % (20-40); Mean Corpuscular HGB Conc 32.4 g/dl (31.0-36.0); Mean Corpuscular Hemoglobin 30.5 pg (27.0-33.0); Mean Corpuscular Volume 94.3 fL (80.0-98.0); Mean Platelet Volume 11.3 fL (9.4-12.4); Monocytes Absolute Auto 0.4 X10*3/uL (0.1-1.2); Monocytes Percent Auto 5.5 % (2-11); Neutrophils Absolute Auto 5.4 x10*3/uL (2.0-8.3); Neutrophils Percent Auto 74.9 % (45-73); Platelet Count 241 X10*3/uL (160-400); Red Blood Count 4.55 X10*6/uL (4.60-5.80); Red Cell Distribution Width 11.8 % (11.0-16.0); White Blood Count 7.1 X10*3/uL (4.8-10.8)
[2023-08-16 16:09] LABS: Estimated Average Glucose 111 mg/dL; Hemoglobin A1c % 5.5 % (<6.0)
[2023-08-16 16:30] LABS: Alanine Aminotransferase 15 U/L (0-40); Alkaline Phosphatase 74 U/L (39-117); Anion Gap 12 (12-20); Aspartate Amino Transferase 19 U/L (5-37); Bilirubin Total 0.4 mg/dL (0.0-1.0); Blood Urea Nitrogen 12 mg/dL (9-16); Calcium 9.3 mg/dL (8.4-10.2); Carbon Dioxide 26 mmol/L (22-29); Chloride 107 mmol/L (96-108); Cholesterol 116 mg/dL (<200); Estimated Glomerular Filt Rate > 60; Glucose Random 114 mg/dL (60-115); HDL Cholesterol 50 mg/dL (>40); LDL Cholesterol Calculated 57 mg/dL (<100); Potassium 4.5 mmol/L (3.3-5.1); Sodium 140 mmol/L (135-145); Total Protein 6.7 g/dL (6.5-8.0); Triglycerides 45 mg/dL (<150)
[2023-08-16 16:36] LABS: Creatinine Urine 111.28 mg/dL
[2023-08-16 16:48] LABS: Folate 10.3 ng/mL (> or = 4.0); Vitamin B12 375 pg/mL (200-900)
[2023-08-17 02:15] LABS: CT PCR NOT DETECTED (Not Detect.); NG PCR NOT DETECTED (Not Detect.)
[2023-08-17 03:38] LABS: Syphilis Screen Nonreactive (Nonreactive)
[2023-08-17 03:59] LABS: HBS Num1 0.14 mIU/mL (0-7.99); HIV AB/AG Nonreactive (Nonreactive); HIV Num 1 0.06 S/CO (0.00-0.99); Hepatitis B Core Antibody Nonreactive (Nonreactive); ~HepC Num1 13.41 S/CO (0.00-0.79); ~Hepatitis B Surface Antibody NONREACTIVE (Nonreactive); ~Hepatitis C Antibody Reactive (Nonreactive)
[2023-08-19 13:54] LABS: Hepatitis B Viral DNA Qn - cp NOT DETECTED Log IU/mL (NOT DETECTED); Hepatitis B Viral DNA Qn-IU/mL NOT DETECTED (NOT DETECTED)
[2023-08-20 11:53] LABS: VITAMIN D (1,25 OH) D3 35 pg/mL; Vit D (1,25-Dihydroxy) Total 35 pg/mL (18-72); Vitamin D (1,25 OH) D2 <8 pg/mL
== END 2023-08-16 12:48 | disposition home or self-care (01) ==
LOC: HO.HHCL 12:47
PROVIDERS: Visit Provider Student in an Organized Health Care Education/Training Program
DX: Z00.00 Encounter for general adult medical examination without abnormal findings (principal); Z11.4 Encounter for screening for human immunodeficiency virus [HIV]; Z11.3 Encounter for screening for infections with a predominantly sexual mode of transmission
CPT/HCPCS: 0353U; 80053; 80061; 82043; 82570; 82607; 82652; 82746; 83036; 84443; 85025; 86704; 86706; 86780; 86803; 87389; 87517; 87522

== ENCOUNTER 2023-09-13 09:51 | Outpatient (REF) | payer MEDICAID, SELFPAY ==
[2023-09-13 11:13] LABS: MANUAL DIFF FLAG NO
[2023-09-13 11:28] LABS: Basophils Absolute Auto 0.1 X10*3/uL (0.0-0.2); Basophils Percent Auto 0.7 % (0-2); Eosinophils Absolute Auto 0.2 X10*3/uL (0.0-0.4); Eosinophils Percent Auto 2.7 % (0-4); Hematocrit 40.5 % (42.0-52.0); Hemoglobin 13.2 g/dl (14.0-18.0); Imm Gran Abs Auto 0.03 X10*3/uL (0.00-0.03); Imm Gran Pct Auto 0.4 % (0.0-0.4); Lymphocytes Absolute Auto 1.9 X10*3/uL (1.2-4.9); Lymphocytes Percent Auto 25.4 % (20-40); Mean Corpuscular HGB Conc 32.6 g/dl (31.0-36.0); Mean Corpuscular Hemoglobin 30.2 pg (27.0-33.0); Mean Corpuscular Volume 92.7 fL (80.0-98.0); Mean Platelet Volume 10.2 fL (9.4-12.4); Monocytes Absolute Auto 0.6 X10*3/uL (0.1-1.2); Monocytes Percent Auto 7.8 % (2-11); Neutrophils Absolute Auto 4.6 x10*3/uL (2.0-8.3); Platelet Count 337 X10*3/uL (160-400); Red Blood Count 4.37 X10*6/uL (4.60-5.80); Red Cell Distribution Width 11.7 % (11.0-16.0); White Blood Count 7.3 X10*3/uL (4.8-10.8)
[2023-09-13 12:11] LABS: Iron 52 mcg/dL (45-160); Percent Iron Saturation 25 % (15-50); Total Iron Binding Capacity 211 mcg/dL (228-428); Unsaturated Iron Binding 159 ug/dL
[2023-09-13 12:12] LABS: Ferritin 65 ng/mL (20-250)
[2023-09-15 12:48] LABS: HCV Log PCR <1.18 NOT DETECTED Log IU/mL (NOT DETECTED); HepC Viral Load <15 NOT DETECTED IU/mL (NOT DETECTED)
== END 2023-09-13 09:52 | disposition home or self-care (01) ==
LOC: HO.HHCL 09:51
PROVIDERS: Visit Provider Student in an Organized Health Care Education/Training Program
DX: D64.9 Anemia, unspecified (principal); R76.8 Other specified abnormal immunological findings in serum
CPT/HCPCS: 36415; 82728; 83540; 85025; 87522

== ENCOUNTER 2024-02-28 01:48 | Emergency (ER) | payer MEDICAID, SELFPAY ==
[2024-02-28 01:54] VITALS: BP 142/92; BP 143/104; PULSE 106; PULSE 55; RESP 20; TEMP 36.6; O2SAT 98; BMI 25.1
--- NOTE | 2024-02-28 02:02 | MHC.EDTECH ---
PT belongings locked in [facility] by security
--- NOTE | 2024-02-28 02:58 | ED_ITS ---
HPI - General Adult General Chief complaint: ETOH/Substance Use Stated complaint: WEAKNESS/ SEEKING DETOX Time Seen by Provider: 02/28/24 02:15 Source: patient Mode of arrival: EMS History of Present Illness HPI narrative: 48-year-old male presents via EMS with complaints of weakness and wanting detox but endorses to me that he does not what Suboxone or methadone and when I inform him that these are some of the tools that we use for detox he states then I'll take it . He denies being suicidal or homicidal and reports his last use of drugs was at 16:00. Related Data Home Medications ?Medication ?Instructions ?Recorded ?Confirmed buprenorphine 8 mg-naloxone 2 mg 1 strip sublingual BID 11/09/21 11/09/21 sublingual film (Suboxone) albuterol sulfate 90 mcg/actuation 2 puff inhalation Q4-6H PRN 10/04/22 10/04/22 aerosol inhaler (ProAir HFA) Wheezing gabapentin 300 mg capsule 1 cap PO TID 10/04/22 10/04/22 meloxicam 15 mg tablet 1 tab PO DAILY 10/04/22 10/04/22 Previous Rx's ?Medication ?Instructions ?Recorded ondansetron 4 mg disintegrating 4 mg PO Q6-8H PRN nausea and 10/04/22 tablet vomiting #14 tabs Allergies Allergy/AdvReac Type Severity Reaction Status Date / Time No Known Allergies Allergy Verified 02/28/24 02:00 Review of Systems Review of Systems: Pertinent positives and negatives as stated in HPI [facility] Past Medical History Source: nursing notes reviewed Medical History Depression Active substance abuse Social History Social History Alcohol intake: unknown Patient Tobacco Use Status: Tobacco use Unknown Use of substances other than those prescribed or required for medical reasons: Yes Substance Use Type: Heroin Substance Use Frequency: Daily Advance Directives: No Advance Directives Information Provided: No Do you have a plan to hurt others: No Plan Physical Exam ED Vital Signs: Vital Signs - 24 hr 02/28/24 01:54 02/28/24 03:43 02/28/24 05:39 Temperature 98 F 97.4 F Pulse Rate 55 68 Respiratory Rate 20 17 17 Blood Pressure 143/104 H Pulse Oximetry 98 Oxygen Delivery Method Room Air BMI result Body Mass Index 25.1 VITAL SIGNS: Reviewed. GENERAL: Well developed, well nourished, in no acute distress. HEAD: Normocephalic/atraumatic EYES: PERRLA, EOMI EARS: Ext canals without abnormality NOSE: Nares patent bilateral OROPHARYNX: no oral lesions noted, posterior pharynx clear NECK: Supple, no adenopathy LUNGS: Normal breath sounds. No adventitious sounds or accessory muscle use. SpO2<98> CARDIOVASCULAR: Regular rate and rhythm without noted murmurs ABDOMEN: Soft, non-tender, non-distended with bowel sounds. MUSCULOSKELETAL: No tenderness, deformities, or effusions noted on gross inspection. EXTREMITIES: No cyanosis, clubbing or edema. SKIN: Inspection of the skin reveals no rashes NEUROLOGIC: Alert and oriented x 4. Strength and sensation to light touch were grossly intact x 4. Medications Administered Discontinued Medications Generic Name Dose Route Start Last Admin Trade Name Freq PRN Reason Stop Dose Admin Ondansetron HCl 4 mg 02/28/24 04:45 02/28/24 05:09 Ondansetron Odt 4 Mg Tab.Rapdis TRANSLINGU 02/28/24 04:46 4 mg ONCE ONE Administration Medical Decision Making Medical Decision Making MDM Narrative: 48-year-old male with history and clinical presentation consistent with request for detox from heroin and wishes to speak to somebody regarding this. Patient placed in physician observation because the patient needed more time for evaluation by addiction medicine. At the time observation was started the patient's vital signs were stable, patient is alert and oriented, neuro: Nonfocal, CV RRR, lungs clear Differential Diagnosis Differential Diagnoses: The differential diagnosis associated with the presentation includes Please see the discussion above Admission/Observation Consideration of admission/observation: Escalation of care including admis markos/observation considered Please see the discussion above Consult Healthcare Provider Management of the patient was discussed with: Chemical Sales Representative Please see the discussion above External Record Review External record reviewed: Outpatient record and Prior outpatient labs Social Determinants Patient?s care significantly limited by Social Determinants of Health including: Alcoholism and drug addiction in family Critical Care Time Critical Care Time Critical Care Time: Yes Total Critical Care Time: 45 Attestation: I personally attest to this time spent taking care of the patient. Discharge Plan Discharge Clinical Impression: Active substance abuse Patient Disposition: Still a Patient Prescriptions: No Action buprenorphine-naloxone [Suboxone] 8-2 mg film 1 strip sublingual BID ondansetron 4 mg tablet,disintegrating 4 mg PO Q6-8H PRN (Reason: nausea and vomiting) Qty: 14 0RF meloxicam 15 mg tablet 1 tab PO DAILY gabapentin 300 mg capsule 1 cap PO TID albuterol sulfate [ProAir HFA] 90 mcg/actuation HFA aerosol inhaler 2 puff INHALATION Q4-6H PRN (Reason: Wheezing) Print Language: Macedonian
[2024-02-28 03:43] VITALS: RESP 17
[2024-02-28] MEDS: Ondansetron ODT 4 MG TAB.RAPDIS TRANSLINGU (05:09)
[2024-02-28 05:39] VITALS: PULSE 68; RESP 17; TEMP 36.3
[2024-02-28 06:05] VITALS: PULSE 63
[2024-02-28 06:25] LABS: Amphetamine Screen Urine Not Detected (Not Detect); Barbiturates, Urine Not Detected (Not Detect); Benzodiazepines Screen Urine Not Detected (Not Detect); Buprenorphine Scr Not Detected (Not Detect); Cannabinoid Screen Urine Not Detected (Not Detect); Cocaine Screen Urine POSITIVE (Not Detect); Fentanyl, urine POSITIVE (Not Detect); Methadone Screen, Urine Not Detected (Not Detect); Opiate Screen Urine POSITIVE (Not Detect); Oxycodone Screen Urine Not Detected (Not Detect); Phencyclidine Screen Urine Not Detected (Not Detect)
--- NOTE | 2024-02-28 07:28 | PC.NURSE ---
Resumed care of patient, he is currently sleeping comfortably, awaiting recovery consult at this time. call luo within reach
[2024-02-28] MEDS: methADONE HCl 20 MG/2 ML ORAL.CONC 30 MG PO (10:11)
[2024-02-28 10:17] VITALS: BP 165/96; PULSE 86; RESP 16; TEMP 36.9; O2SAT 95
[2024-02-28 10:22] VITALS: BP 165/96; PULSE 86; RESP 16; TEMP 36.9; O2SAT 95
[2024-02-28] MEDS: Naloxone HCl Nasal TAKE HOME 4 MG SPRAY 8 MG NOSTRILALT (10:24)
== END 2024-02-28 10:24 | disposition home or self-care (01) ==
PROVIDERS: Emergency Provider Student in an Organized Health Care Education/Training Program
DX: F19.10 Other psychoactive substance abuse, uncomplicated (principal); F32.A Depression, unspecified; F11.20 Opioid dependence, uncomplicated; Z79.899 Other long term (current) drug therapy
CPT/HCPCS: 80307; 99284

== ENCOUNTER 2024-03-11 04:55 | Emergency (ER) | payer MEDICAID, SELFPAY ==
[2024-03-11 05:15] VITALS: BP 132/84; PULSE 80; RESP 16; TEMP 36.8; O2SAT 94; BMI 28.7
--- NOTE | 2024-03-11 05:44 | ED_ITS ---
HPI - General Adult General Chief complaint: General Medical Stated complaint: stomach pain? abscess? Time Seen by Provider: 03/11/24 05:44 Source: patient Mode of arrival: ambulatory Limitations: no limitations History of Present Illness HPI narrative: Patient complaining of rash in suprapubic and scrotal area also noticed small bulge on the right inguinal area for last 2 weeks patient's partner without any rash patient lives in the house no one has scabies bulge in the right groin area comes and goes no nausea no vomiting Related Data Home Medications ?Medication ?Instructions ?Recorded ?Confirmed buprenorphine 8 mg-naloxone 2 mg 1 strip sublingual BID 11/09/21 11/09/21 sublingual film (Suboxone) albuterol sulfate 90 mcg/actuation 2 puff inhalation Q4-6H PRN 10/04/22 10/04/22 aerosol inhaler (ProAir HFA) Wheezing gabapentin 300 mg capsule 1 cap PO TID 10/04/22 10/04/22 meloxicam 15 mg tablet 1 tab PO DAILY 10/04/22 10/04/22 Previous Rx's ?Medication ?Instructions ?Recorded ondansetron 4 mg disintegrating 4 mg PO Q6-8H PRN nausea and 10/04/22 tablet vomiting #14 tabs diphenhydramine HCl 25 mg capsule 50 mg (2 x 25 mg) PO TID PRN 03/11/24 (Benadryl) itching #30 caps miconazole nitrate 2 % topical 1 spray topical BID #133 grams 03/11/24 spray (Lotrimin AF) Allergies Allergy/AdvReac Type Severity Reaction Status Date / Time No Known Allergies Allergy Verified 03/11/24 05:16 Review of Systems 2 Review of Systems: Yes all other systems are reviewed and are negative PMFSH Past Medical History Medical History Depression Active substance abuse Social History Social History Alcohol intake: unknown Patient Tobacco Use Status: Tobacco use Unknown Smoked in Last 30 Days: No Substance Use Type: Heroin Do you have a plan to hurt others: No Plan Physical Exam ED Vital Signs: Vital Signs - 24 hr 03/11/24 05:15 Temperature 98.2 F Pulse Rate 80 Respiratory Rate 16 Blood Pressure 132/84 Pulse Oximetry 94 Oxygen Delivery Method Room Air BMI result Body Mass Index 28.7 Appearance: Alert. Oriented X3. No acute distress. Neck: Normal inspection. Neck supple. CVS: Normal heart rate and rhythm. Pulses normal. Respiratory: No respiratory distress. Equal air entry bilateral, Abdomen: Soft and nontender. Bowel sounds are present, no mass palpable, no CVA tenderness Slight bulging in right groin area suggestive of direct inguinal hernia reducible nontender Skin: Skin warm and dry. Tinea rash in suprapubic and scrotal area Extremities: No lower extremity edema. No calf tenderness Neuro: Oriented X 3. Discharge Plan Discharge Clinical Impression: Tinea corporis, Inguinal hernia Patient Disposition: Home, Self-Care Instructions: Inguinal Hernia (ED), Jock Itch (ED), Skin Yeast Infection (ED) Additional Instructions: Local hygiene as advised Follow with surgeon if swelling in the groin gets bigger or painful Lotrimin powder twice daily on the affected area Benadryl for itching Avoid lifting heavy weight Prescriptions: New Lotrimin AF 2 % aerosol,spray 1 spray topical BID Qty: 133 0RF diphenhydramine HCl [Benadryl] 25 mg capsule 50 mg PO TID PRN (Reason: itching) Qty: 30 0RF No Action buprenorphine-naloxone [Suboxone] 8-2 mg film 1 strip sublingual BID ondansetron 4 mg tablet,disintegrating 4 mg PO Q6-8H PRN (Reason: nausea and vomiting) Qty: 14 0RF meloxicam 15 mg tablet 1 tab PO DAILY gabapentin 300 mg capsule 1 cap PO TID albuterol sulfate [ProAir HFA] 90 mcg/actuation HFA aerosol inhaler 2 puff INHALATION Q4-6H PRN (Reason: Wheezing) Referrals: Raz Mahoney MD [Physician] - 2 weeks Print Language: Spanish
[2024-03-11] MEDS: diphenhydrAMINE HCL 25 MG CAPSULE 50 MG PO (06:11)
[2024-03-11 06:12] VITALS: BP 132/84; PULSE 80; RESP 16; TEMP 36.6; O2SAT 95
== END 2024-03-11 06:13 | disposition home or self-care (01) ==
PROVIDERS: Emergency Provider Internal Medicine
DX: B35.4 Tinea corporis (principal); K40.90 Unilateral inguinal hernia, without obstruction or gangrene, not specified as recurrent
CPT/HCPCS: 99283; 99284

== ENCOUNTER 2024-03-18 02:55 | Emergency (ER) | payer MEDICAID, SELFPAY ==
[2024-03-18 03:06] VITALS: BP 163/100; BP 164/108; PULSE 85; PULSE 98; RESP 18; TEMP 37.2; O2SAT 97; O2SAT 99; BMI 26.3
--- NOTE | 2024-03-18 03:10 | PC.NURSE ---
pt biba from home, a&ox4, respirations even and unlabored. pt reporting onset of lower abdominal pain x1 days, reports being diagnosed with abdominal hernia x5 days ago, reports pain today is stabbing. pt denies n/v/d.
--- NOTE | 2024-03-18 03:45 | PC.NURSE ---
upon entering pt room, pt no longer resting in stretcher, chargemaster analyst Xio aware.
== END 2024-03-18 04:16 | disposition left against medical advice (07) ==
PROVIDERS: Emergency Provider Emergency Medicine
DX: R10.30 Lower abdominal pain, unspecified (principal)
CPT/HCPCS: 99281; 99284

== ENCOUNTER 2024-03-27 09:51 | Outpatient (AMB) | payer MEDICAID, SELFPAY ==
--- NOTE | 2024-03-27 09:50 | MHC.OFFVIS ---
Vital Signs 03/27/24 10:00 Height 5 ft 10 in Weight 172 lb 8 oz BMI 24.7 BP 141/95 H Blood Pressure Location Lt brachial Position Sitting Pulse 79 Intake Visit Reasons: Inguinal hernia, unspecified Intake Note: Patient is seen in office for ER follow up visit, following right inguinal hernia. Pt c/o: onset one month, increase since, discomfort, burning specially with lifting, denies n/v/d/c ED: 03/11/24 Senior Software Systems Engineer Required: No Accompanied by: Family/Other Allergies No Known Allergies Allergy (Verified 03/27/24 10:00) Medication List - Last Reconciled 03/27/24 by Kamar Cameron MD buprenorphine-naloxone 8-2 mg (Suboxone) 1 strip sublingual BID diphenhydramine HCl (Benadryl) 50 mg (2 x 25 mg) PO TID PRN gabapentin 1 cap PO TID meloxicam 1 tab PO DAILY miconazole nitrate 2% (Lotrimin AF) 1 spray topical BID HPI Comments Details: 48-year-old male patient presenting with a one-month history of a lump located in the right groin. He denies any inciting events and feels the lump just appeared. He notes the lump to increase in size with lifting at which time it causes discomfort. The lump does decrease in size when in bed. He denies nausea, vomiting, fever or chills. Denies a previous history of hernias or hernia surgery. He was evaluated in the emergency department on 03/11/2024 and determined to have a reducible right inguinal hernia as well as skin rash in the right groin. He was provided with Lotrimin for the skin rash which is now improved. [facility] Medical History Depression Active substance abuse Social History Alcohol intake: unknown Patient Tobacco Use Status: Tobacco use Unknown Substance Use Type: Heroin Review of Systems Const All systems reviewed & are unremarkable except as noted in HPI and below Denies chills, Denies fever(s), Denies headache(s), Denies poor appetite and Denies weakness ENT Denies headache(s) Card Denies chest pain, Denies irregular heart rhythm, Denies palpitations and Denies dyspnea Resp Denies cough, Denies excessive phlegm production and Denies dyspnea GI Denies abdominal pain, Denies bloating, Denies change in bowel habits, Denies constipation, Denies heartburn, Denies diarrhea, Denies nausea and Denies vomiting Denies difficulty urinating and Denies urinary frequency Musc Denies back pain, Denies muscle weakness and Denies numbness Skin/Breast Denies changing lesions and Denies unusual bruising Neuro Denies headache(s), Denies numbness, Denies paresthesias and Denies weakness Psych Denies anxiety and Denies depression Endo Denies palpitations Catarino/Lymph Denies lymphadenopathy Physical Exam Vital Signs: Last Vital Signs Pulse 79 03/27/24 10:00 BP 141/95 H 03/27/24 10:00 BMI result Body Mass Index 24.7 Const General: cooperative and no acute distress Nutritional Appearance: well nourished Orientation/consciousness: patient oriented x3 Limitations: no limitations HEENT Head: Yes normocephalic and Yes atraumatic Ears: hearing grossly normal bilaterally Resp Effort & Inspection: normal respiratory effort, no audible wheezes, no cough and no respiratory distress Cardio Jugular venous distension: no JVD GI Other: Palpable right inguinal hernia noted in the standing position. The hernia increases in size with Valsalva maneuvers. The hernia is easily reducible when in the supine position with light pressure. No left inguinal hernias appreciated. No active skin infection is appreciated in the groin. Inspection: Yes normal to inspection Skin Other: Warm, dry, no rash Neuro General: patient oriented x3 Extrem General: Yes no clubbing, cyanosis or edema Assessment & Plan Assessment & Plan (1) Inguinal hernia: Code(s): K40.90 - Unilateral inguinal hernia, without obstruction or gangrene, not specified as recurrent Category: Medical Qualifiers: Obstruction and gangrene presence: without obstruction or gangrene Laterality: unilateral Recurrence: non-recurrent Qualified Code(s): K40.90 - Unilateral inguinal hernia, without obstruction or gangrene, not specified as recurrent Plan 48-year-old male patient presenting with a recent onset of a right inguinal hernia. On examination he is found to have a moderate size reducible right inguinal hernia. I recommended repair of this right inguinal hernia with mesh and after discussion of the procedure, risks, and alternatives, he consents to the surgery. Coding Level of Care Code New Pt Level 4 (94000) Diagnoses Non-recurrent unilateral inguinal hernia without obstruction or gangrene K40.90 Obstruction and gangrene presence: without obstruction or gangrene Laterality: unilateral Recurrence: non-recurrent
[2024-03-27 10:00] VITALS: BP 141/95; PULSE 79; BMI 24.7
== END 2024-03-27 10:12 | disposition home or self-care (01) ==
PROVIDERS: PCP Student in an Organized Health Care Education/Training Program; Visit Provider Surgery
DX: K40.90 Unilateral inguinal hernia, without obstruction or gangrene, not specified as recurrent (principal)
CPT/HCPCS: 99204

== ENCOUNTER → 2024-03-27 09:51 | Outpatient (BNVA) | payer MEDICAID, SELFPAY | PROVIDERS: Visit Provider Surgery | DX: K40.90 Unilateral inguinal hernia, without obstruction or gangrene, not specified as recurrent (principal) | CPT/HCPCS: 99202 ==

== ENCOUNTER 2024-04-14 09:58 | Emergency (ER) | payer OTHER, SELFPAY ==
[2024-04-14 10:05] VITALS: BP 170/90; PULSE 72; O2SAT 99
[2024-04-14 10:11] VITALS: BP 152/91; PULSE 64; RESP 18; TEMP 36.4; O2SAT 99; BMI 24.4
--- NOTE | 2024-04-14 10:56 | ED.GENADULT ---
HPI - General Adult General Chief complaint: ETOH/Substance Use Stated complaint: OVERDOSE Time Seen by Provider: 04/14/24 10:55 Source: patient and RN notes reviewed Mode of arrival: EMS Limitations: no limitations History of Present Illness ED Provider: Cammie Mckenzie PA-C [facility] narrative: This is a 48-year-old male, with a history of substance abuse, presents emergency department via EMS after being found sleeping on the street by police and EMS. Patient states that he used 4 bundles of heroin. He states that he wants to kill himself. He has not on methadone. He does not tell me any other details. MD complaint: Substance abuse, suicidal ideation Related Data Home Medications ?Medication ?Instructions ?Recorded ?Confirmed No Known Home Meds 04/14/24 04/14/24 Allergies Allergy/AdvReac Type Severity Reaction Status Date / Time No Known Allergies Allergy Unverified 04/14/24 10:12 Review of Systems Review of Systems: Yes all other systems are reviewed and are negative Constitutional: Constitutional: Reports as per [facility] Past Medical History Medical History (Updated 04/14/24 @ 15:59 by JEAN-CLAUDE Coley) Smoker Anxiety OCD (obsessive compulsive disorder) Lumbar back pain HTN (hypertension) Depression Active substance abuse Social History Social History Alcohol intake: unknown Patient Tobacco Use Status: Tobacco use Unknown Substance Use Type: Heroin Advance Directives: No Advance Directives Information Provided: No Physical Exam ED Vital Signs: Vital Signs - 24 hr 04/14/24 10:11 04/14/24 12:02 04/14/24 16:15 Temperature 97.5 F 98.7 F 98.1 F Pulse Rate 64 73 90 Respiratory Rate 18 14 18 Blood Pressure 152/91 H 142/98 H 138/83 Pulse Oximetry 99 98 96 Oxygen Delivery Method Room Air Room Air Room Air BMI result Body Mass Index 24.4 Const General: cooperative, comfortable and no acute distress Orientation/consciousness: patient oriented x3 Limitations: no limitations HENMT Head: Yes normal to inspection, Yes normocephalic and Yes atraumatic Ears: hearing grossly normal bilaterally General nose exam: Normal external nose present Face and sinus: Yes normal facial exam Mouth: Normal oral and palatal mucosa present, oropharynx normal and moist mucous membranes Throat: Yes posterior oropharynx normal Eyes General: appearance normal, both eyes and all related structures Eyelids: Yes eyelids normal Conjunctivae: conjunctivae normal Sclerae: sclerae normal Pupils: Equal, round and reactive pupils present EOM: EOMs intact bilaterally Neck Neck: Yes normal visual inspection, Yes full ROM and Yes no lymphadenopathy Lymphatic: no lymphadenopathy noted Chest Chest palpation & inspection: normal inspection of the chest Resp Effort & Inspection: normal respiratory effort and able to speak in complete sentences Auscultation: clear to auscultation bilaterally, no crackles, no rales, no rhonchi and no wheezes Cardio Rate: regular rate Rhythm: regular rhythm Heart sounds: S1 normal heart sound present and S2 normal heart sound present GI Other: Abdomen is soft nontender Inspection: Yes normal to inspection Skin General skin exam: no rashes or lesions noted Trauma: no lacerations or abrasions Wounds: no wounds Neuro General: patient oriented x3 and moves all extremities Cranial nerves: Yes Equal, round and reactive pupils present Extrem General: Yes normal to inspection Right upper extremity: normal to inspection Left upper extremity: normal to inspection Right lower extremity: normal to inspection Left lower extremity: normal to inspection Course Reevaluation(s) Reevaluation #1: I was made aware of hypokalemia, of 2.8, EKG ordered. Potassium chloride 60 mEq p.o. ordered. Will recheck in 3 hours to ensure level has improved. Will continue to closely monitor. Urine revealing positive opiates, buprenorphine, fentanyl, and cocaine. Time: 13:33 Reevaluation #2: Has been walking to the restroom, waking as well as with vital signs. He does not appear to be in any acute distress, he is resting comfortably. Will continue to monitor pending care team disposition. Will repeat chemistry in 1 hour to ensure that potassium has been replenished. Troponin ordered secondary to inverted T-waves in V3-V6. Sign-out given to my colleague, Isael Obregon PA-C pending repeat troponin, chemistry, care team. Time: 16:13 Reevaluation #3: Patient received in sign-out at change of shift pending repeat troponin and chemistries. Patient's repeat potassium is trending upwards at 3.0. Troponin flat at 3.6. He is medically cleared for care team evaluation. Unfortunately it seems the care team is gone for the night and the patient will remain in the ER or observation until he can be evaluated by a care team in the morning Time: 20:00 Medications Administered Discontinued Medications Generic Name Dose Route Start Last Admin Trade Name Garrett PRN Reason Stop Dose Admin Potassium Chloride 60 meq 04/14/24 14:25 04/14/24 14:56 Potassium Chloride Er 20 Meq Tab.Er.Prt PO 04/14/24 14:26 60 meq ONCE ONE Administration Medical Decision Making Medical Decision Making [facility] Narrative: This is a 28-wqeo-htb-male, with a hx of substance abuse who presents to the ER via EMS after being found on the ground with drug paraphernalia. On arrival, BP elevated at 152/91. He is arousable to verbal stimuli. He does not respond to many of the questions I have asked. He only reports that he used 4 bundles of heroin and would like to kill himself. Pt evaluated by my attending physician, Dr. Ross. Given that he is arousable to stimuli and is resting comfortably, will monitor. Does not require Narcan at this time. Plan: Labs, UA, utox, ethanol Differential Diagnosis Differential Diagnoses: The differential diagnosis associated with the presentation includes Opioid overdose, substance abuse, polysubstance abuse, depression, anxiety, suicidal ideation Admission/Observation Consideration of admission/observation: Escalation of care including admission/observation considered Escalation of care including admission/observation considered however given workup today not warranted at this time. Lab Data [facility] Lab Attestation statement: I reviewed the patient's lab results. No leukocytosis, stable H&H, chemistry revealing hypokalemia 2.8, glucose 116, slight elevation in liver transaminases with an AST and ALT of 74 and 54. Patient positive for opiates, buprenorphine, fentanyl, and cocaine 04/14/24 11:34 04/14/24 16:44 Labs: Lab Results 04/14/24 04/14/24 04/14/24 Range/Units 11:34 14:40 16:44 WBC 6.5 (4.8-10.8) X10*3/uL RBC 4.65 (4.60-5.80) X10*6/uL Hgb 14.1 (14.0-18.0) g/dl Hct 41.0 L (42.0-52.0) % MCV 88.2 (80.0-98.0) fL MCH 30.3 (27.0-33.0) pg MCHC 34.4 (31.0-36.0) g/dl RDW 12.4 (11.0-16.0) % Plt Count 310 (160-400) X10*3/uL MPV 9.2 L (9.4-12.4) fL Immature Gran % (Auto) 0.5 H (0.0-0.4) % Neut % (Auto) 80.8 H (45-73) % Lymph % (Auto) 13.3 L (20-40) % [place] % (Auto) 4.7 (2-11) % Eos % (Auto) 0.2 (0-4) % Baso % (Auto) 0.5 (0-2) % Lymph # (Auto) 0.9 L (1.2-4.9) X10*3/uL [place] # (Auto) 0.3 (0.1-1.2) X10*3/uL Eos # (Auto) 0.0 (0.0-0.4) X10*3/uL Baso # (Auto) 0.0 (0.0-0.2) X10*3/uL Abs Immat Gran (auto) 0.03 (0.00-0.03) X10*3/uL Absolute Neuts (auto) 5.3 (2.0-8.3) x10*3/uL Absolute Nucleated RBC 0.000 (0.0-0.012) X10*3/uL Nucleated RBC % (auto) 0.0 (0.0-0.2) /100WBC Sodium 140 139 (135-145) mmol/L Potassium 2.8 L* 3.0 L (3.3-5.1) mmol/L Chloride 101 102 (96-108) mmol/L Carbon Dioxide 27 28 (22-29) mmol/L Anion Gap 15 12 (12-20) BUN 12 12 (9-16) mg/dL Creatinine 0.81 0.89 (0.5-1.4) mg/dL Estim Creat Clear Calc 112.6 102.5 Estimated GFR > 60 > 60 Random Glucose 116 H 109 (60-115) mg/dL Calcium 9.1 9.1 (8.4-10.2) mg/dL Magnesium 2.2 (1.6-2.6) mg/dL Total Bilirubin 0.7 0.8 (0.0-1.0) mg/dL Direct Bilirubin 0.3 (0.0-0.5) mg/dL AST 74 H 61 H (5-37) U/L ALT 58 H 55 H (0-40) U/L Alkaline Phosphatase 117 109 (39-117) U/L Troponin I High Sens 3.1 3.6 (<3.5-35.0) ng/L Total Protein 6.9 6.9 (6.5-8.0) g/dL Albumin 3.9 3.8 (3.5-5.0) g/dL Lipase 12 (8-78) U/L Salicylates < 5.0 L (15-30) mg/dL Urine Opiates Screen POSITIVE H (Not Detect) Ur Buprenorphine Scrn Positive H (Not Detect) ng/mL Ur Oxycodone Screen Not Detected (Not Detect) ng/mL Urine Methadone Screen Not Detected (Not Detect) ng/mL Urine Fentanyl Screen POSITIVE H (Not Detect) Acetaminophen < 3 (<30) mcg/mL Ur Barbiturates Screen Not Detected (Not Detect) Ur Phencyclidine Scrn Not Detected (Not Detect) Ur Amphetamines Screen Not Detected (Not Detect) U Benzodiazepines Scrn Not Detected (Not Detect) Urine Cocaine Screen POSITIVE H (Not Detect) U Marijuana (THC) Screen Not Detected (Not Detect) Ethyl Alcohol < 10 mg/dL Independent Interpretation I performed an independent interpretation of an: EKG Interpretation: EKG normal sinus rhythm at a ventricular rate of 83 beats per minute, inverted T-waves noted in V3 through V6 Independent Historian Clinical information obtained from an independent historian. History obtained from or confirmed by: EMS Discharge Plan Discharge Clinical Impression: Active substance abuse Patient Disposition: Still a Patient Prescriptions: No Action No Known Home Meds Print Language: Czech
[2024-04-14 11:39] LABS: MANUAL DIFF FLAG NO
[2024-04-14 11:45] LABS: Basophils Percent Auto 0.5 % (0-2); Eosinophils Percent Auto 0.2 % (0-4); Hemoglobin 14.1 g/dl (14.0-18.0); Imm Gran Abs Auto 0.03 X10*3/uL (0.00-0.03); Imm Gran Pct Auto 0.5 % (0.0-0.4); Lymphocytes Absolute Auto 0.9 X10*3/uL (1.2-4.9); Lymphocytes Percent Auto 13.3 % (20-40); Mean Corpuscular HGB Conc 34.4 g/dl (31.0-36.0); Mean Corpuscular Hemoglobin 30.3 pg (27.0-33.0); Mean Corpuscular Volume 88.2 fL (80.0-98.0); Mean Platelet Volume 9.2 fL (9.4-12.4); Monocytes Absolute Auto 0.3 X10*3/uL (0.1-1.2); Monocytes Percent Auto 4.7 % (2-11); Neutrophils Absolute Auto 5.3 x10*3/uL (2.0-8.3); Neutrophils Percent Auto 80.8 % (45-73); Platelet Count 310 X10*3/uL (160-400); Red Blood Count 4.65 X10*6/uL (4.60-5.80); Red Cell Distribution Width 12.4 % (11.0-16.0); White Blood Count 6.5 X10*3/uL (4.8-10.8)
[2024-04-14 12:02] VITALS: BP 142/98; PULSE 73; RESP 14; TEMP 37.1; O2SAT 98
[2024-04-14 12:17] LABS: Acetaminophen LAB < 3 mcg/mL (<30); Salicylate < 5.0 mg/dL (15-30)
[2024-04-14 12:23] LABS: Alanine Aminotransferase 58 U/L (0-40); Albumin Level 3.9 g/dL (3.5-5.0); Alkaline Phosphatase 117 U/L (39-117); Anion Gap 15 (12-20); Aspartate Amino Transferase 74 U/L (5-37); Bilirubin Direct 0.3 mg/dL (0.0-0.5); Bilirubin Total 0.7 mg/dL (0.0-1.0); Blood Urea Nitrogen 12 mg/dL (9-16); Calcium 9.1 mg/dL (8.4-10.2); Carbon Dioxide 27 mmol/L (22-29); Chloride 101 mmol/L (96-108); Creatinine Clr Calc Pharmacy 112.6; Estimated Glomerular Filt Rate > 60; Ethanol < 10 mg/dL; Glucose Random 116 mg/dL (60-115); Lipase 12 U/L (8-78); Magnesium 2.2 mg/dL (1.6-2.6); Potassium 2.8 mmol/L (3.3-5.1); Sodium 140 mmol/L (135-145); Total Protein 6.9 g/dL (6.5-8.0)
--- NOTE | 2024-04-14 12:24 | ECG_ITS ---
Test Reason : OVERDOSE Blood Pressure : / mmHG Vent. Rate : 083 BPM Atrial Rate : 083 BPM P-R Int : 134 ms QRS Dur : 088 ms QT Int : 452 ms P-R-T Axes : 053 045 -83 degrees QTc Int : 531 ms Normal sinus rhythm T wave abnormality, consider anterolateral ischemia Prolonged QT Abnormal ECG When compared with ECG of 30-JAN-2023 11:07, Nonspecific T wave abnormality now evident in Inferior leads T wave inversion now evident in Anterolateral leads Referred By: Cammie Mckenzie Electronically Signed By:ARON HARTMAN MD
[2024-04-14 14:45] LABS: Troponin-I High Sensitivity 3.1 ng/L (<3.5-35.0)
[2024-04-14] MEDS: Potassium Chloride ER 20 MEQ TAB.ER.PRT 60 MEQ PO (14:56)
[2024-04-14 15:01] LABS: Amphetamine Screen Urine Not Detected (Not Detect); Barbiturates, Urine Not Detected (Not Detect); Benzodiazepines Screen Urine Not Detected (Not Detect); Buprenorphine Scr Positive (Not Detect); Cannabinoid Screen Urine Not Detected (Not Detect); Cocaine Screen Urine POSITIVE (Not Detect); Fentanyl, urine POSITIVE (Not Detect); Methadone Screen, Urine Not Detected (Not Detect); Opiate Screen Urine POSITIVE (Not Detect); Oxycodone Screen Urine Not Detected (Not Detect); Phencyclidine Screen Urine Not Detected (Not Detect)
[2024-04-14 16:15] VITALS: BP 138/83; PULSE 90; RESP 18; TEMP 36.7; O2SAT 96
[2024-04-14 17:13] LABS: Troponin-I High Sensitivity 3.6 ng/L (<3.5-35.0)
[2024-04-14 18:58] LABS: Alanine Aminotransferase 55 U/L (0-40); Albumin Level 3.8 g/dL (3.5-5.0); Alkaline Phosphatase 109 U/L (39-117); Anion Gap 12 (12-20); Aspartate Amino Transferase 61 U/L (5-37); Bilirubin Total 0.8 mg/dL (0.0-1.0); Blood Urea Nitrogen 12 mg/dL (9-16); Calcium 9.1 mg/dL (8.4-10.2); Carbon Dioxide 28 mmol/L (22-29); Chloride 102 mmol/L (96-108); Creatinine Clr Calc Pharmacy 102.5; Estimated Glomerular Filt Rate > 60; Glucose Random 109 mg/dL (60-115); Sodium 139 mmol/L (135-145); Total Protein 6.9 g/dL (6.5-8.0)
--- NOTE | 2024-04-14 20:00 | MHC.CARE ---
CARE team attempted to meet with client several times. Initially pt was in [facility]. He was observed with blanket over his head. Pt did not respond to verbal stimuli. Pt was later moved to [facility]. T/W attempted to meet with him once more in [facility]. Pt was once again unresponsive to verbal/physical stimuli. At one point pt did rouse and peer at t/w. He then closed his eyes and refused to further engage. CARE team contacted June who is listed as pt?s emergency contact. She reports she as been in a relationship with pt for the past 3 years. She has a long history of cocaine and heroin use. June reports pt had been living with her, but she has not had contact with pt in about a week. Last Tuesday she kicked pt out of the hoe due to ongoing substance use. uJne provided brother?s contact info. She is not sure of brother?s real name but states he goes by ?Juan A? [phone] T/W spoke with ?Juan A?, real name Claudio Browning, pt?s brother. He reports he is living in [place], [place] and has limited contact with pt. Brother last spoke with pt via [email or web address] last week when pt called asking him for money. He reports pt ?looked really sick?.? At the time pt has expressed using crack cocaine and heroin. Brother reports pt has had one psych admission due to SI in 2019 in [place] though he was unsure of hospital name. Brother reports pt has been stealing from partner which is why she kicked him out of home. They have another brother living in [place] but he had no contact info for him. Contacted [facility], spoke to Glenny. She reports pt was last seen at [facility] in 2021 for substance use related issues. He has no psych admissions on [facility].? Contacted [facility]- no record of pt having any services through [facility]
[2024-04-15 06:19] VITALS: BP 153/56; PULSE 100; RESP 18; TEMP 37; O2SAT 98
--- NOTE | 2024-04-15 07:01 | PC.NURSE ---
Assumed care of patient at 0645. Patient is observed resting quietly in their bed. Breathing is even and unlabored with no signs of distress observed. Will continue plan of care.
[2024-04-15 14:00] VITALS: RESP 18
[2024-04-15 20:42] VITALS: BP 142/92; PULSE 84; RESP 18; TEMP 36.3; O2SAT 99
--- NOTE | 2024-04-15 22:47 | MHC.CARE ---
Pt's brother called in and left his phone number. Claudio Almeida [phone]
[2024-04-16 05:40] VITALS: PULSE 89
[2024-04-16 05:48] VITALS: BP 168/103; PULSE 89; RESP 18; TEMP 36.7; O2SAT 97
[2024-04-16] MEDS: LORazepam 1 MG TABLET 2 MG PO (05:49)
--- NOTE | 2024-04-16 05:52 | PC.NURSE ---
Patient slept intermittently, snacking and refreshing intermittently, meds and meals compliant, Ativan 2 mg po administered for comfort, disposition per care section 12 dual diagnosis bed search, calm and pleasant, will continue to monitor
--- NOTE | 2024-04-16 07:40 | PC.NURSE ---
Assumed care of patient at 0645, patient appears to be sleeping, respirations even and unlabored, no apparent distress. Continue plan of care for dual dx bedsearch
--- NOTE | 2024-04-16 08:17 | MHC.CARE ---
This pt was accepted to [facility] by [facility]. The accepting provider is Dr. Dobbins and the ETA is 1pm. The address is [address] [place] [address]. The accepting facility does not require a nurse to nurse. CARE team was notified of placement to complete section 12 for transport. Pod RN was notified of placement to work on transport & discharge.
[2024-04-16] MEDS: amLODIPine Besylate 5 MG TABLET PO (08:19)
--- NOTE | 2024-04-16 09:56 | PC.NURSE ---
Patient was medicated this am with Ativan at around 0550, woke up at about 0945 reporting some agitation and discomfort. CIWA of 7. Ativan administered per MAR
[2024-04-16] MEDS: LORazepam 1 MG TABLET PO (09:59)
[2024-04-16 18:36] VITALS: BP 152/89; PULSE 81; RESP 16; TEMP 36.7; O2SAT 97
== END 2024-04-16 18:49 ==
PROVIDERS: Physician Assistant Medical; Emergency Provider Emergency Medicine; PCP Student in an Organized Health Care Education/Training Program
DX: F19.10 Other psychoactive substance abuse, uncomplicated (principal); R45.851 Suicidal ideations; F41.9 Anxiety disorder, unspecified; F32.A Depression, unspecified; I10 Essential (primary) hypertension; F17.200 Nicotine dependence, unspecified, uncomplicated
CPT/HCPCS: 36415; 80048; 80053; 80076; 80143; 80179; 80307; 83690; 83735; 84484; 85025; 93005; 99285; S9485

== ENCOUNTER → 2024-04-14 12:24 | Outpatient (BNV) | payer MEDICAID, SELFPAY | PROVIDERS: Emergency Provider Emergency Medicine; Visit Provider Internal Medicine Cardiovascular Disease | DX: R94.31 Abnormal electrocardiogram [ECG] [EKG] (principal) | CPT/HCPCS: 93010 ==

== ENCOUNTER 2024-06-12 | Outpatient (REF) | payer MEDICAID, SELFPAY ==
[2024-06-12 10:04] VITALS: BP 123/80; PULSE 50; RESP 16; O2SAT 97; BMI 28.7
--- NOTE | 2024-06-12 10:32 | P.CONAN_ITS ---
HPI - Anesthesia Eval Consult details Narrative: Pending cardiology referral from PCP for abnormal EKGs 48yo M for Right Hernia Inguinal Reducible with mesh, 06/20/24 Hx IVDA, Suboxone x 2 months - 20mg daily. Will discuss with prescriber to do 12mg daily 2 days prior to surgery. No recent illness No CP/SOB with walking. Long time smoker, no inhalers, no productive cough PMFSH Active Problems Active Problems: All Active Problems Inguinal hernia (Acute) Active substance abuse (Acute) Past Medical History Medical History (Updated 06/12/24 @ 10:28 by Sarita Holder RN) Elevated LFTs Hx of hepatitis C Smoker Anxiety OCD (obsessive compulsive disorder) Lumbar back pain HTN (hypertension) Depression Active substance abuse Family History Family history of problems with anesthesia: No Surgical History Surgical History (Updated 06/12/24 @ 10:02 by Sarita Holder RN) No pertinent past surgical history History of Problems with Anesthesia: No (Never rec'd anesthesia) Social History Social History Are you a primary career discovery teacher to a significant other at home: No Do you presently have visiting nurse or other home services: No Alcohol intake: unknown Patient Tobacco Use Status: Current everyday Tobacco user Tobacco use type: Cigarette Cigarettes Per Day: 4 Years Smoked: 10 Second Hand Smoke Exposure: No Substance Use Type: Heroin Meds Allergies Allergy/AdvReac Type Severity Reaction Status Date / Time No Known Allergies Allergy Verified 06/12/24 10:01 Home Medications ?Medication ?Instructions ?Recorded ?Confirmed ?Last Taken ?Type amlodipine 5 mg tablet 5 mg PO QAM 04/16/24 06/12/24 Unknown History acetaminophen 500 mg tablet 500 mg PO Q8H PRN mild pain 06/12/24 06/12/24 Unknown History buprenorphine 8 mg-naloxone 2 mg 1 film sublingual BID 06/12/24 06/12/24 Unknown History sublingual film (Suboxone) escitalopram oxalate 10 mg tablet 10 mg PO DAILY depressive disorder 06/12/24 06/12/24 Unknown History hydroxyzine pamoate 25 mg capsule 25 mg PO Q8H PRN Anxiety 06/12/24 06/12/24 Unknown History meloxicam 7.5 mg tablet 7.5 mg PO QAM 06/12/24 06/12/24 Unknown History Exam Height,Weight and Vital Signs: Height 5 ft 10 in Weight 90.8 kg Last Vital Signs Pulse 50 06/12/24 10:04 Resp 16 06/12/24 10:04 BP 123/80 06/12/24 10:04 Pulse Ox 97 06/12/24 10:04 O2 Del Method Room Air 06/12/24 10:04 Pertinent Lab Results Pertinent Lab Results: Laboratory Tests 04/14/24 04/14/24 11:34 16:44 WBC 6.5 Hgb 14.1 Hct 41.0 L Plt Count 310 BUN 12 Creatinine 0.89 Airway Mallampati Class: I TM Dist: >3cm Neck ROM: Full Loose/Missing/Broken Teeth: Yes (No top teeth, lower front teeth with poor dentition, no lower molars) Heart: RRR Lungs: CTAB Assessment and Plan Assessment Anesthesia Assessment: Anesthesia Plan Discussed, Smoking Cess. Discussed and PAT Visit Final Anesthetic Review Family History of Problems with Anesthesia: No History of Problems with Anesthesia: No (Never rec'd anesthesia)
[2024-06-12 12:08] LABS: Anion Gap 10 (12-20); Carbon Dioxide 32 mmol/L (22-29); Chloride 105 mmol/L (96-108); Potassium 4.2 mmol/L (3.3-5.1); Sodium 143 mmol/L (135-145)
== END 2024-06-12 00:01 | disposition home or self-care (01) ==
LOC: HO.LAB
PROVIDERS: Nurse Practitioner; Visit Provider Surgery
DX: K40.90 Unilateral inguinal hernia, without obstruction or gangrene, not specified as recurrent (principal); Z01.818 Encounter for other preprocedural examination
CPT/HCPCS: 36415; 80051

== ENCOUNTER 2024-08-14 15:49 | Emergency (ER) | payer MEDICAID, SELFPAY ==
--- NOTE | ~2024-08-14 | US_ITS ---
EXAMINATION: US PELVIS, LIMITED/FOLLOW UP CLINICAL INFORMATION: Right inguinal hernia, pain. COMPARISON: None available. TECHNIQUE: Targeted sonographic evaluation of the right inguinal region. FINDINGS: Small fat-containing right inguinal hernia with a neck measuring approximately 0.6 cm. US/US pelvic limited IMPRESSION: Small fat-containing right inguinal hernia. Electronically signed by: Riya Goldman MD 08/14/2024 09:44 PM EDT
[2024-08-14 16:19] VITALS: BP 148/94; PULSE 89; RESP 22; TEMP 36.7; O2SAT 97; BMI 23.7
--- NOTE | 2024-08-14 16:24 | ED_ITS ---
HPI - General Adult General Chief complaint: ETOH/Substance Use Stated complaint: ETOH, depression Time Seen by Provider: 08/14/24 17:02 Source: patient Limitations: no limitations History of Present Illness ED Provider: Marilu smith PA-C HPI narrative: 48-year-old male with a history of polysubstance abuse presents with auditory hallucinations. Patient states ?the voices are telling him to hurt himself?. In addition, patient is requesting help with the detox. He admits to snorting heroin today. Patient also has a right inguinal hernia, he states it is painful and has been there for months. Denies abdominal distention, vomiting, inability to have a bowel movement, he is passing flatus. Related Data Home Medications ?Medication ?Instructions ?Recorded ?Confirmed buprenorphine 8 mg-naloxone 2 mg 1 film sublingual BID 06/12/24 08/15/24 sublingual film (Suboxone) escitalopram oxalate 10 mg tablet 20 mg PO DAILY depressive disorder 06/12/24 08/15/24 gabapentin 100 mg capsule 100 mg PO Q8H 08/15/24 08/15/24 nicotine (polacrilex) 4 mg gum 4 mg PO Q2H PRN Nicotine Cravings 08/15/24 08/15/24 nicotine 21 mg/24 hr daily 1 patch topical DAILY 08/15/24 08/15/24 transdermal patch Allergies Allergy/AdvReac Type Severity Reaction Status Date / Time No Known Allergies Allergy Verified 08/14/24 16:22 Review of Systems 2 Review of Systems: Yes all other systems are reviewed and are negative Constitutional: Constitutional: Denies fever(s) Cardiovascular: Cardiovascular: Denies chest pain Respiratory: Respiratory: Denies cough Gastrointestinal: Gastrointestinal: Denies abdominal pain, Denies constipation, Denies nausea and Denies vomiting PMFSH Past Medical History Attestation statement: The following information was validated with the patient. Medical History (Updated 08/14/24 @ 21:52 by JEAN-CLAUDE Lozano) Elevated LFTs Hx of hepatitis C Smoker Anxiety OCD (obsessive compulsive disorder) Lumbar back pain HTN (hypertension) Depression Active substance abuse Surgical History (Updated 06/12/24 @ 10:02 by Sarita Holder RN) No pertinent past surgical history Social History Social History Are you a primary care rep to a significant other at home: No Do you presently have visiting nurse or other home services: No Unable to assess alcohol history related to: Unable to respond Alcohol intake: unknown Patient Tobacco Use Status: Current everyday Tobacco user Tobacco use type: Cigarette Cigarettes Per Day: 4 Years Smoked: 10 Second Hand Smoke Exposure: No Use of substances other than those prescribed or required for medical reasons: Unable to respond Substance Use Type: Heroin Advance Directives: No Advance Directives Information Provided: Yes Do you have a plan to hurt others: No Plan Physical Exam ED Vital Signs: Vital Signs - 24 hr 08/14/24 16:19 08/14/24 17:00 08/15/24 07:05 Temperature 98.1 F 98.0 F Pulse Rate 89 76 Respiratory Rate 22 H 18 16 Blood Pressure 148/94 H 134/84 Pulse Oximetry 97 98 Oxygen Delivery Method Room Air Room Air BMI result Body Mass Index 23.7 Const Other: Alert, well in appearance Orientation/consciousness: patient oriented x3 Resp Effort & Inspection: normal respiratory effort Cardio Other: Normal peripheral perfusion GI Other: Abdomen is soft, nondistended, nontender no guarding Other: Right inguinal hernia noted, it is soft, with no overlying skin discoloration, it is reducible Skin Other: Warm dry no rash Neuro Other: Ambulates with an antalgic gait General: patient oriented x3, no focal motor deficits and CN's II-XI intact bilaterally Psych Other: Calm cooperative at this time Course Course Course Narrative: RME: DOne by JEAN-CLAUDE Coleman. 48-year-old male history of depression and substance abuse presents to ED wanting detox from heroin use and also stating having or auditory hallucination telling him to hurt himself. Patient states last SI attempt was many years ago. Patient is here with family. Labs care team ordered Reevaluation(s) Reevaluation #1: Patient is a bed search for a dual diagnosis program, just confirmed by our care team Time: 21:55 Reevaluation #2: observation care revealed that the patient does meet psychiatric necessity for hospitalization. final disposition discussed with the patient. The patient completed observation care at 1030am. He is being discharged to [facility] Rate: 51 Rhythm: sinus bradycardia [place]: normal Normal P waves. Normal SARAH. Normal QRS complex. ST T wave : inverted t waves inf leads and V4-V6, no KEVIN qTC: 400 prior studies: unchanged April 2024 The study has been interpreted contemporaneously by me. . Medications Administered Discontinued Medications Generic Name Dose Route Start Last Admin Trade Name Garrett PRN Reason Stop Dose Admin Haloperidol 10 mg 08/14/24 21:02 08/15/24 06:53 Haloperidol 5 Mg Tablet PO 08/14/24 21:03 Not Given ONCE ONE Medical Decision Making Medical Decision Making MDM Narrative: 48-year-old male with a history of polysubstance abuse presents with auditory hallucinations. Patient states ?the voices are telling him to hurt himself?. In addition, patient is requesting help with the detox. He admits to snorting heroin today. Patient also has a right inguinal hernia, he states it is painful and has been there for months. Denies abdominal distention, vomiting, inability to have a bowel movement, he is passing flatus. Problem: Polysubstance abuse and hallucinations History: Per patient I have considered the following differential diagnoses: SI, HI, drug/alcohol intoxication, decompensated psychiatric illness, incarcerated hernia, strangulated hernia, bowel obstruction Plan: In regards to the patient's psychiatric complaint, he will be assessed by the care team. Screening labs including serum ethanol and U tox are in process. In regard to the hernia, it is soft and reducible, I have no suspicion for incarceration or strangulation at this time. I will obtain an ultrasound, this will be an outpatient follow up to discuss elective repair, once his current psychiatric issues are managed. I have independently reviewed the following tests: Labs: No leukocytosis, not anemic, no electrolyte abnormality, drug screen positive for opiates, buprenorphine, fentanyl, cocaine, marijuana alcohol is negative Ultrasound scrotal contents:Right upper quadrant pain. COMPARISON: Abdominal ultrasound 10/07/2014. TECHNIQUE: Real-time imaging of the gallbladder. FINDINGS: No evidence of cholelithiasis, gallbladder wall thickening or pericholecystic free fluid. No gallbladder polyps. Technologist reports a positive Tidwell's sign. Partially seen common bile duct duct normal in diameter measuring 0.6 cm. US/US abdomen limited IMPRESSION: Nonspecific tenderness in the right upper quadrant. Normal sonographic appearance of the gallbladder. Electronically signed by: Riya Goldman MD 08/14/2024 09:09 PM EDT Lab Data 08/14/24 16:44 08/14/24 16:44 Labs: Lab Results 08/14/24 08/14/24 Range/Units 16:44 18:21 WBC 9.2 (4.8-10.8) X10*3/uL RBC 4.28 L (4.60-5.80) X10*6/uL Hgb 12.8 L (14.0-18.0) g/dl Hct 37.4 L (42.0-52.0) % MCV 87.4 (80.0-98.0) fL MCH 29.9 (27.0-33.0) pg MCHC 34.2 (31.0-36.0) g/dl RDW 11.9 (11.0-16.0) % Plt Count 348 (160-400) X10*3/uL MPV 9.9 (9.4-12.4) fL Immature Gran % (Auto) 0.3 (0.0-0.4) % Neut % (Auto) 62.7 (45-73) % Lymph % (Auto) 25.0 (20-40) % [place] % (Auto) 10.1 (2-11) % Eos % (Auto) 1.2 (0-4) % Baso % (Auto) 0.7 (0-2) % Lymph # (Auto) 2.3 (1.2-4.9) X10*3/uL [place] # (Auto) 0.9 (0.1-1.2) X10*3/uL Eos # (Auto) 0.1 (0.0-0.4) X10*3/uL Baso # (Auto) 0.1 (0.0-0.2) X10*3/uL Abs Immat Gran (auto) 0.03 (0.00-0.03) X10*3/uL Absolute Neuts (auto) 5.8 (2.0-8.3) x10*3/uL Absolute Nucleated RBC 0.000 (0.0-0.012) X10*3/uL Nucleated RBC % (auto) 0.0 (0.0-0.2) /100WBC Sodium 140 (135-145) mmol/L Potassium 3.6 (3.3-5.1) mmol/L Chloride 106 (96-108) mmol/L Carbon Dioxide 30 H (22-29) mmol/L Anion Gap 8 L (12-20) BUN 11 (9-16) mg/dL Creatinine 1.03 (0.5-1.4) mg/dL Estim Creat Clear Calc 88.5 Estimated GFR > 60 Random Glucose 115 (60-115) mg/dL Calcium 9.0 (8.4-10.2) mg/dL Total Bilirubin 0.5 (0.0-1.0) mg/dL AST 45 H (5-37) U/L ALT 27 (0-40) U/L Alkaline Phosphatase 109 (39-117) U/L Total Protein 6.9 (6.5-8.0) g/dL Albumin 4.0 (3.5-5.0) g/dL Urine Color Yellow Urine Appearance Clear Urine pH 5.5 (5.0-9.0) Ur Specific [place] >= 1.030 H (1.005-1.025) Urine Protein Negative (Neg-Trace) mg/dL Urine Glucose (UA) Negative (Negative) mg/dL Urine Ketones Trace (Negative) mg/dL Urine Blood Negative (Negative) Urine Nitrite Negative (Negative) Ur Leukocyte Esterase Negative (Negative) Urine Opiates Screen POSITIVE H (Not Detect) Ur Buprenorphine Scrn Positive H (Not Detect) ng/mL Ur Oxycodone Screen Not Detected (Not Detect) ng/mL Urine Methadone Screen Not Detected (Not Detect) ng/mL Urine Fentanyl Screen POSITIVE H (Not Detect) Ur Barbiturates Screen Not Detected (Not Detect) Ur Phencyclidine Scrn Not Detected (Not Detect) Ur Amphetamines Screen Not Detected (Not Detect) U Benzodiazepines Scrn Not Detected (Not Detect) Urine Cocaine Screen POSITIVE H (Not Detect) U Marijuana (THC) Screen POSITIVE H (Not Detect) Ethyl Alcohol < 10 mg/dL Discharge Plan Discharge Clinical Impression: Auditory hallucination, Suicidal ideation, Hernia, inguinal, right Patient Disposition: Xfer Psychiatric Hosp Transfer Details: TO [facility], [address], [place], [address], Prescriptions: No Action nicotine (polacrilex) 4 mg gum 4 mg PO Q2H PRN (Reason: Nicotine Cravings) nicotine 21 mg/24 hr patch 24 hour 1 patch topical DAILY gabapentin 100 mg capsule 100 mg PO Q8H escitalopram oxalate 10 mg tablet 20 mg PO DAILY buprenorphine-naloxone [Suboxone] 8-2 mg film 1 film sublingual BID Patient Comments: 8 mg qam-8mg @1400-4mg @2100 Referrals: Lexy Iniguez MD [Primary Care Provider] - Print Language: Georgian
[2024-08-14 16:49] LABS: MANUAL DIFF FLAG NO
[2024-08-14 17:00] VITALS: BP 134/84; PULSE 76; RESP 18; TEMP 36.7; O2SAT 98
[2024-08-14 17:00] LABS: Basophils Absolute Auto 0.1 X10*3/uL (0.0-0.2); Basophils Percent Auto 0.7 % (0-2); Eosinophils Absolute Auto 0.1 X10*3/uL (0.0-0.4); Eosinophils Percent Auto 1.2 % (0-4); Hematocrit 37.4 % (42.0-52.0); Hemoglobin 12.8 g/dl (14.0-18.0); Imm Gran Abs Auto 0.03 X10*3/uL (0.00-0.03); Imm Gran Pct Auto 0.3 % (0.0-0.4); Lymphocytes Absolute Auto 2.3 X10*3/uL (1.2-4.9); Mean Corpuscular HGB Conc 34.2 g/dl (31.0-36.0); Mean Corpuscular Hemoglobin 29.9 pg (27.0-33.0); Mean Corpuscular Volume 87.4 fL (80.0-98.0); Mean Platelet Volume 9.9 fL (9.4-12.4); Monocytes Absolute Auto 0.9 X10*3/uL (0.1-1.2); Monocytes Percent Auto 10.1 % (2-11); Neutrophils Absolute Auto 5.8 x10*3/uL (2.0-8.3); Neutrophils Percent Auto 62.7 % (45-73); Platelet Count 348 X10*3/uL (160-400); Red Blood Count 4.28 X10*6/uL (4.60-5.80); Red Cell Distribution Width 11.9 % (11.0-16.0); White Blood Count 9.2 X10*3/uL (4.8-10.8)
--- NOTE | 2024-08-14 17:08 | PC.NURSE ---
PT Spouse requesting patient go to [facility] in [place], [place] for placement.
[2024-08-14 17:15] LABS: Alanine Aminotransferase 27 U/L (0-40); Alkaline Phosphatase 109 U/L (39-117); Anion Gap 8 (12-20); Aspartate Amino Transferase 45 U/L (5-37); Bilirubin Total 0.5 mg/dL (0.0-1.0); Blood Urea Nitrogen 11 mg/dL (9-16); Carbon Dioxide 30 mmol/L (22-29); Chloride 106 mmol/L (96-108); Creatinine Clr Calc Pharmacy 88.5; Estimated Glomerular Filt Rate > 60; Ethanol < 10 mg/dL; Glucose Random 115 mg/dL (60-115); Potassium 3.6 mmol/L (3.3-5.1); Sodium 140 mmol/L (135-145); Total Protein 6.9 g/dL (6.5-8.0)
[2024-08-14 18:31] LABS: Appearance Urine Clear; Color Urine Yellow; Glucose Urine UA Negative (Negative); Leukocyte Esterase Urine Negative (Negative); Nitrite Urine Negative (Negative); PH 5.5 (5.0-9.0); Specific Gravity - Urine >= 1.030 (1.005-1.025); Urine Blood Negative (Negative); Urine Ketones Trace mg/dL (Negative); Urine Protein Negative (Neg-Trace)
[2024-08-14 18:39] LABS: Amphetamine Screen Urine Not Detected (Not Detect); Barbiturates, Urine Not Detected (Not Detect); Benzodiazepines Screen Urine Not Detected (Not Detect); Buprenorphine Scr Positive (Not Detect); Cannabinoid Screen Urine POSITIVE (Not Detect); Cocaine Screen Urine POSITIVE (Not Detect); Fentanyl, urine POSITIVE (Not Detect); Methadone Screen, Urine Not Detected (Not Detect); Opiate Screen Urine POSITIVE (Not Detect); Oxycodone Screen Urine Not Detected (Not Detect); Phencyclidine Screen Urine Not Detected (Not Detect)
--- NOTE | 2024-08-14 18:47 | PC.NURSE ---
Assumed care of patient at 1845, patient very restless but cooperative. Patient was sent with a tech and security shortly after assuming care to ultrasound. Upon return to the unit patient returned to his bed with no distress noted. Even and regular breathing.
--- NOTE | 2024-08-14 19:20 | PC.NURSE ---
Patient taken to ultrasound via wheelchair with tech and security.
--- NOTE | 2024-08-15 | ECG_ITS ---
Test Reason : CHECK PRLONG QT Blood Pressure : / mmHG Vent. Rate : 051 BPM Atrial Rate : 051 BPM P-R Int : 114 ms QRS Dur : 084 ms QT Int : 434 ms P-R-T Axes : -16 036 -77 degrees QTc Int : [address] & T wave abnormality, consider inferolateral ischemia Abnormal ECG When compared with ECG of 14-APR-2024 13:33, Vent. rate has decreased BY 32 BPM T wave inversion less evident in Anterior leads QT has shortened Referred By: Marilu Strauss Electronically Signed By:ARON HARTMAN MD
--- NOTE | 2024-08-15 06:54 | PC.NURSE ---
Assumed care of patient at 0645, patient appears to be in no apparent distress this am, sleeping, respirations even and unlabored. Pt has walker in room due to unsteady gait. Continue plan of care for dual dx bedsearch
[2024-08-15 07:05] VITALS: RESP 16
--- NOTE | 2024-08-15 08:38 | MHC.CARE ---
Accepted to [facility] @ [address] [place] [address] Castellano, ETA 4pm. Nurse and CARE Team notified and transport is being booked.
[2024-08-15 11:36] VITALS: BP 142/84; PULSE 87; RESP 14; TEMP 36.9; O2SAT 97
== END 2024-08-15 11:37 ==
PROVIDERS: Physician Assistant; Emergency Provider Emergency Medicine; PCP Student in an Organized Health Care Education/Training Program
DX: F33.1 Major depressive disorder, recurrent, moderate (principal); R45.851 Suicidal ideations; F17.210 Nicotine dependence, cigarettes, uncomplicated; F10.10 Alcohol abuse, uncomplicated; F14.10 Cocaine abuse, uncomplicated; R10.2 Pelvic and perineal pain; R00.1 Bradycardia, unspecified; Z71.51 Drug abuse counseling and surveillance of drug abuser; Y90.0 Blood alcohol level of less than 20 mg/100 ml; Z51.81 Encounter for therapeutic drug level monitoring; Z79.899 Other long term (current) drug therapy
CPT/HCPCS: 36415; 76857; 80053; 80307; 81003; 85025; 93005; 99285; S9485

== ENCOUNTER → 2024-08-15 09:40 | Outpatient (BNV) | payer MEDICAID, SELFPAY | PROVIDERS: Emergency Provider Emergency Medicine; PCP Student in an Organized Health Care Education/Training Program; Visit Provider Internal Medicine Cardiovascular Disease | DX: R94.31 Abnormal electrocardiogram [ECG] [EKG] (principal) | CPT/HCPCS: 93010 ==

== ENCOUNTER 2024-11-07 22:57 | Emergency (ER) | payer MEDICAID, SELFPAY ==
[2024-11-07 23:14] VITALS: BP 158/104; PULSE 66; O2SAT 97
[2024-11-07 23:16] VITALS: BP 126/87; PULSE 85; RESP 18; TEMP 38.1; O2SAT 92; BMI 30.1
--- NOTE | 2024-11-07 23:19 | ED.ABDPAIN ---
HPI - Abdominal Pain General Chief Complaint: General Medical Stated Complaint: groin pain Time Seen by Provider: 11/07/24 23:11 Source: patient Mode of arrival: ambulatory Limitations: no limitations History of Present Illness ED Provider: DR. Dwyer HPI narrative: A 48-year-old male history of right inguinal hernia for the past 4 months presented today with pain in the right inguinal hernia started at 14:00, no fever, no chills, no nausea, no vomiting, passing flatus normally, had a normal bowel movement earlier today, no dysuria, no frequency urination, no hematuria. Patient was seen and evaluated by Dr. Cameron for the hernia. Related Data Home Medications ?Medication ?Instructions ?Recorded ?Confirmed buprenorphine 8 mg-naloxone 2 mg 1 film sublingual BID 06/12/24 08/15/24 sublingual film (Suboxone) escitalopram oxalate 10 mg tablet 20 mg PO DAILY depressive disorder 06/12/24 08/15/24 gabapentin 100 mg capsule 100 mg PO Q8H 08/15/24 08/15/24 nicotine (polacrilex) 4 mg gum 4 mg PO Q2H PRN Nicotine Cravings 08/15/24 08/15/24 nicotine 21 mg/24 hr daily 1 patch topical DAILY 08/15/24 08/15/24 transdermal patch Allergies Allergy/AdvReac Type Severity Reaction Status Date / Time No Known Allergies Allergy Verified 11/07/24 23:17 Review of Systems Review of Systems All other systems are reviewed and are negative Constitutional: Reports as per HPI and Reports no additional constitutional complaints Eyes: Reports as per HPI and Reports no additional eye complaints Reports system reviewed and no additional complaints, except as documented Cardiovascular: Reports as per HPI and Reports no additional cardiovascular complaints Respiratory: Reports as per HPI and Reports no additional respiratory complaints Gastrointestinal: Reports as per HPI and Reports no additional gastrointestinal complaints Genitourinary: Reports no additional female genitourinary complaints Musculoskeletal: Reports no additional musculoskeletal complaints Skin/Breast: Reports system reviewed and no additional complaints, except as docu Psychiatric: Reports no additional psychiatric complaints Endocrine: Reports no additional endocrine complaints Hematologic/Lymphatic: Reports no additional hematologic/lymphatic complaints Allergic/Immunologic: Reports no additional allergic/immunologic complaints Reports system reviewed and no additional complaints, except as documented and Reports Abnormal speech present PMFSH Past Medical History Medical History Elevated LFTs Hx of hepatitis C Smoker Anxiety OCD (obsessive compulsive disorder) Lumbar back pain HTN (hypertension) Depression Active substance abuse Surgical History No pertinent past surgical history Social History Social History Are you a primary home care chaplain to a significant other at home: No Do you presently have visiting nurse or other home services: No Unable to assess alcohol history related to: Unable to respond Alcohol intake: unknown Patient Tobacco Use Status: Current everyday Tobacco user Tobacco use type: Cigarette Cigarettes Per Day: 4 Years Smoked: 10 Second Hand Smoke Exposure: No Substance Use Type: Heroin Physical Exam ED Vital Signs: Vital Signs - 24 hr 11/07/24 23:16 Temperature 100.5 F H Pulse Rate 85 Respiratory Rate 18 Blood Pressure 126/87 Pulse Oximetry 92 Oxygen Delivery Method Room Air BMI result Body Mass Index 30.1 Vital signs have been reviewed and appear to be correct. Blood pressure elevated. Heart rate normal. Respiratory rate normal. Temperature normal. Oxygen saturation normal. Appearance: Alert. Oriented X3. No acute distress. Head: Normal external exam. Normocephalic. Atraumatic. No Marquez signs noted. No raccoon eyes noted Eyes: PERRLA. EOMI. Conjunctiva and sclera normal. Eyelids normal. ENT: TM's Normal. Pharynx normal. Uvula midline. Moist mucous membranes. No trismus noted. No drooling noted. No muffled voice noted. Neck: Normal inspection. Neck supple. FROM. No adenopathy. Thyroid Normal. No meningeal signs. No neck mass noted. CVS: Normal heart rate and rhythm. Heart sound normal. No murmurs noted. Pulses normal throughout. Respiratory: No respiratory distress. Painless inspiration. Breath sounds normal. No wheezes/rales/rhonchi noted. Chest nontender. No accessory muscle usage noted or decreased air movement noted. Abdomen: Soft and nontender. Bowel sounds normal in all 4 quadrants. No distention noted. No organomegaly noted. No visible injury noted. Right inguinal hernia, reducible, mild tender when it is reduced, skin has no redness or hotness. Back: No CVA tenderness. Full range of motion noted. Skin: Skin warm and dry. Normal skin color. Normal skin turgor. No rashes/lesions/lacerations noted. Extremities: No lower extremity edema. Extremities exhibit normal range of motion. Extremities nontender. Neuro: Oriented X 3. Cranial nerve exam: II-XII are grossly intact No motor deficit. No sensory deficit. Reflexes normal. Course Reevaluation(s) Reevaluation #1: Patient is AAO x3, asking to leave, I discussed at length the risk of leaving AMA without R/O incarcerated hernia, patient is refusing to CT insisting to discontinue IV access and go home after signed AMA patient clearly understand that necrotic bowel and is a major life-threatening side effect of leaving against medical advice and patient verbalized. Patient was given Dr. Cameron's contact information and to follow-up with him. Time: 23:40 Medical Decision Making Differential Diagnosis Differential Diagnoses: The differential diagnosis associated with the presentation includes (Incarcerated hernia, strangulated hernia, tender right inguinal hernia, electrolyte derangement, severe anemia.) Admission/Observation Consideration of admission/observation: Escalation of care including admission/observation considered Lab Data MDM Lab Attestation statement: I reviewed the patient's lab results. 11/07/24 23:29 11/07/24 23:29 Labs: Lab Results 11/07/24 Range/Units 23:29 WBC 7.0 (4.8-10.8) X10*3/uL RBC 4.85 (4.60-5.80) X10*6/uL Hgb 14.5 (14.0-18.0) g/dl Hct 41.2 L (42.0-52.0) % MCV 84.9 (80.0-98.0) fL MCH 29.9 (27.0-33.0) pg MCHC 35.2 (31.0-36.0) g/dl RDW 12.0 (11.0-16.0) % Plt Count 250 D (160-400) X10*3/uL MPV 9.9 (9.4-12.4) fL Immature Gran % (Auto) 0.3 (0.0-0.4) % Neut % (Auto) 71.5 (45-73) % Lymph % (Auto) 19.8 L (20-40) % [place] % (Auto) 6.7 (2-11) % Eos % (Auto) 1.1 (0-4) % Baso % (Auto) 0.6 (0-2) % Lymph # (Auto) 1.4 (1.2-4.9) X10*3/uL [place] # (Auto) 0.5 (0.1-1.2) X10*3/uL Eos # (Auto) 0.1 (0.0-0.4) X10*3/uL Baso # (Auto) 0.0 (0.0-0.2) X10*3/uL Abs Immat Gran (auto) 0.02 (0.00-0.03) X10*3/uL Absolute Neuts (auto) 5.0 (2.0-8.3) x10*3/uL Absolute Nucleated RBC 0.000 (0.0-0.012) X10*3/uL Nucleated RBC % (auto) 0.0 (0.0-0.2) /100WBC Discharge Plan Discharge Clinical Impression: Inguinal hernia Patient Disposition: Left Against Medical Advice Instructions: Inguinal Hernia (ED) Prescriptions: No Action nicotine (polacrilex) 4 mg gum 4 mg PO Q2H PRN (Reason: Nicotine Cravings) nicotine 21 mg/24 hr patch 24 hour 1 patch topical DAILY gabapentin 100 mg capsule 100 mg PO Q8H escitalopram oxalate 10 mg tablet 20 mg PO DAILY buprenorphine-naloxone [Suboxone] 8-2 mg film 1 film sublingual BID Patient Comments: 8 mg qam-8mg @1400-4mg @2100 Referrals: Kamar Cameron MD [Physician] - Stand Alone Forms: Against Medical Advice Print Language: Croatian
[2024-11-07 23:33] LABS: MANUAL DIFF FLAG NO
[2024-11-07 23:34] LABS: Basophils Percent Auto 0.6 % (0-2); Eosinophils Absolute Auto 0.1 X10*3/uL (0.0-0.4); Eosinophils Percent Auto 1.1 % (0-4); Hematocrit 41.2 % (42.0-52.0); Hemoglobin 14.5 g/dl (14.0-18.0); Imm Gran Abs Auto 0.02 X10*3/uL (0.00-0.03); Imm Gran Pct Auto 0.3 % (0.0-0.4); Lymphocytes Absolute Auto 1.4 X10*3/uL (1.2-4.9); Lymphocytes Percent Auto 19.8 % (20-40); Mean Corpuscular HGB Conc 35.2 g/dl (31.0-36.0); Mean Corpuscular Hemoglobin 29.9 pg (27.0-33.0); Mean Corpuscular Volume 84.9 fL (80.0-98.0); Mean Platelet Volume 9.9 fL (9.4-12.4); Monocytes Absolute Auto 0.5 X10*3/uL (0.1-1.2); Monocytes Percent Auto 6.7 % (2-11); Neutrophils Percent Auto 71.5 % (45-73); Platelet Count 250 X10*3/uL (160-400); Red Blood Count 4.85 X10*6/uL (4.60-5.80)
[2024-11-07 23:47] VITALS: BP 126/87; PULSE 85; RESP 18; TEMP 38.1; O2SAT 92
[2024-11-07 23:49] LABS: Alanine Aminotransferase 11 U/L (0-40); Albumin Level 4.5 g/dL (3.5-5.0); Alkaline Phosphatase 115 U/L (39-117); Anion Gap 15 (12-20); Aspartate Amino Transferase 19 U/L (5-37); Bilirubin Direct 0.1 mg/dL (0.0-0.5); Bilirubin Total 0.4 mg/dL (0.0-1.0); Blood Urea Nitrogen 17 mg/dL (9-16); C Reactive Protein 1.02 mg/dL (< or = 0.50); Calcium 9.2 mg/dL (8.4-10.2); Carbon Dioxide 23 mmol/L (22-29); Chloride 106 mmol/L (96-108); Creatinine Clr Calc Pharmacy 106.6; Estimated Glomerular Filt Rate > 60; Glucose Random 108 mg/dL (60-115); Lipase 16 U/L (8-78); Potassium 3.7 mmol/L (3.3-5.1); Sodium 140 mmol/L (135-145); Total Protein 7.8 g/dL (6.5-8.0)
[2024-11-08 00:06] LABS: Erythrocyte Sedimentation Rate 7 MM/HR (0-15)
== END 2024-11-07 23:47 | disposition left against medical advice (07) ==
PROVIDERS: Emergency Provider Emergency Medicine
DX: K40.90 Unilateral inguinal hernia, without obstruction or gangrene, not specified as recurrent (principal); F19.10 Other psychoactive substance abuse, uncomplicated; Z53.29 Procedure and treatment not carried out because of patient's decision for other reasons
CPT/HCPCS: 36415; 80048; 80076; 83690; 85025; 85652; 86140; 99283

== ENCOUNTER 2025-01-21 08:14 | Outpatient (AMB) | payer MEDICAID, SELFPAY ==
--- OUTSIDE RECORDS SUMMARY | 2025-01-21 08:23 | XMS_ITS | Encounter Summary ---
Author Organization [employer] Address [address] [place] [address] Care Team Providers Care Operating Room Scheduler Name Role Phone Lexy Iniguez MD Primary Care Pro vider Emanuel Calvert DDJens Unavailable [phone] Encounter Details Date Type Department Care Team (Latest Contact Info) Description 01/02/2025 Travel Social History Tobacco Use Types Packs/Day Years Used Date Smoking Tobacco: Every Day Cigarettes Passive Smoke Exposure: Current Smokeless Tobacco: Never Comments:smoking at 23 y of age until now -smokes for 22 y- 1/2 PQT a day ---has a calc 12 PQT a year Alcohol Use Standard Drinks/Week Comments Never 0 (1 standard drink = 0.6 oz pur e alcohol) Depression Answer Date Recorded Patient Health Questionnaire-9 Score 7 05/29/2024 Patient Health Questionnaire-9 Score 7 05/29/2024 Last PHQ-9: Questionnaire Data Not on file 0 05/29/2024 Housing Stability Answer Date Recorded What is your housing situation today? I have judy sullivan 09/15/[address] you li ve. Do you have problems with any of the following? None of the above 09/15/2023 Food Insecurity Answer Date Recorded Within the past 12 months, y ou worried that your food would run out before you got money to buy more: Never True 09/15/2023 Within the past 12 months,th e food you bought just didn't last and you didn't have enough money to get more: Never True 07/2023 Transportation Answer Date Recorded In the past 12 months, has l ack of transportation kept you from medical appts, meetings, work or from getting things needed for daily living? No 09/15/2023 Utilities Answer Date Recorded In the past 12 months, has t he electric, gas, oil or water company threatened to shut off services in your home? No 09/15/2023 Depression Answer Date Recorded Patient Health Questionnaire-2 Score 2 05/29/2024 Internet Access Answer Date Recorded Internet Access Q1 Yes 07/07/2024 Internet Access Q2 Not on file 07/07/2024 Sex and Gender Information Value Date Recorded Sex Assigned at Male 06/15/2023 1:52 PM EDT Legal Sex Male 11:10 AM EDT Gender Identity Male 06/15/2023 1:52 PM EDT Sexual Orientation Choose not to disclose 2022 1:52 PM EDT documented as of this encounter Plan of Treatment Upcoming Encounters Date Type Department Care Team (Late st Contact Info) Description 01/23/2025 9:00 AM EDT Clinical Support [facility] [address] [place] [address] Sahnia Portillo, RN documented as of this encounter Goals Goal Patient Goal Type Associated Problems Recent Progress Patient-Stated? Author Increase coping skills to promote long-term recovery and improve ability to perform daily activities General Not on track( 025 8:59 AM EDT) No Shania Portillo, ABIGAIL documented as of this encounter Visit Diagnoses Not on filedocumented in this encounter Additional Health Concerns Assessment Noted Time PHQ-9 Depression Total Score: 7 05/29/20 24 11:39 AM EDT documented as of this encounter Care Teams Operating Room Scheduler Relationship Specialty Start Date End Date Lexy Iniguez MD [address] [place] [id number] PCP - General Internal Medicine 09/15/23 Emanuel Calvert DDS [address] [place] [id number] Dental Grants Analyst 09/19/24 documented as of this encounter
--- OUTSIDE RECORDS SUMMARY | 2025-01-21 08:23 | XMS_ITS | Encounter Summary ---
Author Organization [employer] Address [address] [place] [address] [place] [address] Care Team Providers Care Patient Services Assistant Name Role Phone Lexy Iniguez MD Primary Care Pro vider Emanuel Calvert DDJens Unavailable [phone] Reason for Visit * Reason Onset Date Comments Medication Question 05/23/2024 Encounter Details Date Type Department Care Team ([facility] st Contact Info) Description 05/23/2024 Telephone [facility] [address] [place] [address] Lexy Iniguez MD [address] [place] [address] Medication Question Social History Tobacco Use Types Packs/Day Years Used Date Smoking Tobacco: Every Day Cigarettes Smokeless Tobacco: Never Comments:smoking at 23 y of age until now -smokes for 24 y- 1/2 PQT a day ---has a calc 12 PQT a year Alcohol Use Standard Drinks/Week Comments Never 0 (1 standard drink = 0.6 oz pur e alcohol) Depression Answer Date Recorded Patient Health Questionnaire-9 Score 0 09/15/2023 Patient Health Questionnaire-9 Score 0 09/15/2023 Last PHQ-9: Questionnaire Data Not on file 1 11/15/2022 Housing Stability Answer Date Recorded What is [...] Answer Date Recorded Patient Health Questionnaire-2 Score 0 09/15/2023 Sex and Gender Information Value Date Recorded Sex Assigned at Male 06/15/2023 1:52 PM EDT Legal Sex Male 11:10 AM EDT Gender Identity Male 06/15/2023 1:52 PM EDT Sexual Orientation Choose not to disclose 2022 1:52 PM EDT documented as of this encounter Miscellaneous Notes * Telephone Encounter - Sydnee Almeida RN - 05/24/2024 11:32 AM EDT Medications confirmed by insurance. See scanned in Clinical Import Note under DOS 05/22/24 in Media tab. Facility pt was at has not released notes. Please can you get ideally documentation of medication at discharge and if not to confirm all dosesand frequency , some of these meds are new ,not prescribed for pt from here and need to have doses Thanks * Telephone Encounter - Neri Solis - 05/23/2024 11:26 AM EDT Tc from Loren with [facility] calling in regards to pt's medication. Loren is requesting for medication pt was discharged with during hospital visit can be filled early before HDF appt. Mediation in question: Trazodone AmLODipine Melatonin Citalopram If any questions you can contact Loren at [phone]. documented in this encounter Plan of Treatment Upcoming Encounters Date Type Department Care Team (Late st Contact Info) Description 01/23/2025 9:00 AM EDT Clinical Support [facility] [address] [place] [address] Shania Portillo, RN documented as of this encounter Visit Diagnoses Not on filedocumented in this encounter Additional Health Concerns Assessment Noted Time PHQ-9 Depression Total Score: 0 09/15/20 11:38 AM EST documented as of this encounter Care Teams Patient Services Assistant Relationship Specialty Start Date End Date Lexy Iniguez MD [address] [place] [id number] PCP - General Internal Medicine 09/15/23 Emanuel Calvert DDS [address] [place] [id number] Dental Personal Care Attendant 09/19/24 documented as of this encounter
--- OUTSIDE RECORDS SUMMARY | 2025-01-21 08:23 | XMS_ITS | Clinical Summary ---
Author Organization [employer] Address [address] [place] [address] Care Team Providers Care Media Job Titles Name Role Phone Lexy Iniguez MD Primary Care Pro vider Emanuel Calvert DDeJns Unavailable [phone] Allergies No known active allergies Medications * This document contains information received from the source organization and may not represent a complete record from that organization. Blood Pressure Monitor kit 1 kit in the morning. 1 kit 09/15/20 23 Active melatonin 3 MG tablet TAKE 1 TABLET BY MOUTH AT BEDTIME. 30 tablet 06/27/20 24 Active nicotine (Nicoderm, Step 3) 7 MG/24HR patchIndications :Nicotine Dependence Place 1 patch on the skin 1 (one) time each day at the same time. 30 patch 2 07/20/20 24 Active gabapentin (Neurontin) 100 MG capsuleIndicatio ns:Lumbar radiculopathy Take 1 capsule (100 mg) by mouth every 8 (eight) hours. 90 capsule 07/20/20 24 025 Active escitalopram (Lexapro) 20 MG tablet Take 1 tablet (20 mg) by mouth Once per day. 30 tablet 2 07/20/20 24 Active lidocaine (Lidoderm) 5 % patchIndications :Lumbar back pain with radiculopathy affecting lower extremity Apply 1 patch topically Once per day. Remove & discard patch within 12 hours or as directed by . 30 patch 2 07/20/20 24 Active hydrOXYzine pamoate (Vistaril) 50 MG capsule TAKE 1 CAPSULE BY MOUTH EVERY 4 HOURS NEEDED FOR ANXIETY Active nicotine polacrilex (Nicorette) 4 MG gum CHEW 1 PIECE IN MOUTH EVERY TWO HOURS NEEDED 08/07/20 24 Active amLODIPine (Norvasc) 5 MG tablet TAKE 1 TABLET (5 MG) BY MOUTH ONCE PER DAY. 90 tablet 11/21/19 25 Active Buprenorphine HCl-Naloxone HCl (Suboxone) 8-2 MG SL filmIndications: Opioid type dependence, continuous (CMS/HCC) Place 1 Film under the tongue 3 times daily for 7 days. Do not start before January 16, 2025. Film 01/17/20 25 025 Active Buprenorphine HCl-Naloxone HCl (Suboxone) 8-2 MG SL filmIndications: Opioid type dependence, continuous (CMS/HCC) Place 1 Film under the tongue 3 times daily for 7 days. Do not start before December 26, 2024. Film 12/26/19 25 025 Discontinued(R eorder (will not trigger notification to Pharmacy)) Buprenorphine HCl-Naloxone HCl (Suboxone) 8-2 MG SL filmIndications: Opioid type dependence, continuous (CMS/HCC) Place 1 Film under the tongue 3 times daily for 7 days. Do not start before January 02, 2025. Film 01/02/20 25 025 Discontinued(R eorder (will not trigger notification to Pharmacy)) Buprenorphine HCl-Naloxone HCl (Suboxone) 8-2 MG SL filmIndications: Opioid type dependence, continuous (CMS/HCC) Place 1 Film under the tongue 3 times daily for 7 days. Do not start before January 09, 2025. Film 01/10/20 25 025 Discontinued(R eorder (will not trigger notification to Pharmacy)) Active Problems Problem Noted Date Diagnosed Date Weight loss 07/21/2024 Moderate episode of recurrent major depressive d isorder 05/29/2024 Health care maintenance 09/17/2023 Generalized anxiety disorder 09/17/2023 OCD (obsessive compulsive disorder) 09/17/2023 Anemia 09/17/2023 Hypertension 08/12/2023 Assessment & Plan (08/12/2023 7:09 AM EDT): Mildly elevated BP today. -Resume Amlodipine 5 mg every day. -Requested new PCP apt to f BP. Lumbar radiculopathy 08/12/2023 Assessment & Plan (08/12/2023 7:09 AM EDT): Chronic lower back pain from accident in the past. Pt states it is unchanged from baseline, but pt is requesting to resume Gabapentin. Here w normal neurologic exam. -Lidoderm patch, Tylenol PRN, Meloxicam PRN for moderate pain instead of other NSAIDs - explained to pt. -Resume Gabapentin at a lower dose - 300 mg HS for now. -PT referral today. -Requested today to get new pt apt for physical, but did labs to start care and to try to engage pt. Opioid use disorder 08/12/2023 Assessment & Plan (08/12/2023 7:11 AM EDT): drugs hx of heroine use-last use couple months on methadone 120 mg Tobacco abuse disorder 08/12/2023 Assessment & Plan (08/12/2023 7:10 AM EDT): -Social Tobacco : 1/2 pqt a year x 18 year -Will need to be addressed w new PCP. Encounters Date Type Department Care Team Description 01/16/2025 9:00 AM EDT Clinical Support [address] [address] Mae Lopez RN Uncomplicated opioid dependence (CMS/HCC) (Primary Dx) 01/16/2025 Travel 01/09/2025 9:00 AM EST Office Visit [address] [address] Quintin Jordan MD Uncomplicated opioid dependence (CMS/HCC) (Primary Dx) 01/09/2025 Refill [facility] [address] [place] [address] Shania Portillo, ABIGAIL Opioid type dependence, continuous (CMS/HCC) 01/09/2025 Travel 01/02/2025 9:00 AM EST Office Visit [address] [address] Quintin Jordan MD Uncomplicated opioid dependence (CMS/HCC) (Primary Dx) 01/02/2025 Refill [facility] [address] [place] [phone] Shania Portillo RN Opioid type dependence, continuous (CMS/HCC) 01/02/2025 Travel 12/28/2024 Refill [facility] [place] [address] Shania Portillo RN Opioid type dependence, continuous (CMS/HCC) 12/26/2024 9:00 AM EST Clinical Support [address] [place] [address] Shania Portillo RN Opioid type dependence, continuous (CMS/HCC) (Primary Dx) 12/26/2024 Travel 12/19/2024 9:00 AM EST Office Visit [address] [address] Quintin Jordan MD Uncomplicated opioid dependence (CMS/HCC) (Primary Dx) 12/19/2024 Refill [facility] [place] [address] Shania Portillo RN Opioid type dependence, continuous (CMS/HCC) 12/19/2024 Travel 12/12/2024 9:00 AM EST Office Visit [address] [place] [address] Quintin Jordan MD Opioid type dependence, continuous (CMS/HCC) (Primary Dx) 12/12/2024 Refill [facility] [place] [address] Shania Portillo RN Opioid type dependence, continuous (CMS/HCC) 12/12/2024 Travel 12/05/2024 9:00 AM EST Office Visit [address] [address] Quintin Jordan MD Opioid type dependence, continuous (CMS/HCC) (Primary Dx) 12/05/2024 Refill [facility] [address] [place] [address] Shania Portillo RN Opioid type dependence, continuous (CMS/HCC) 12/05/2024 Patient Outreach [address] [address] Emanuel Swanson Recovery Supports 12/05/2024 Travel 11/28/2024 9:00 AM EST Office Visit [address] [address] Quintin Jordan MD Opioid type dependence, continuous (CMS/HCC) (Primary Dx) 11/28/2024 Refill [facility] [address] [place] [address] Shania Portillo RN Opioid type dependence, continuous (CMS/HCC) 11/28/2024 Travel 11/22/2024 Patient Outreach [address] [address] Zi Wu Recovery Supports 11/21/2024 9:00 AM EST Office Visit [address] [address] Quintin Jordan MD Opioid type dependence, continuous (CMS/HCC) (Primary Dx) 11/21/[address] [address] Shania Portillo RN Opioid type dependence, continuous (CMS/HCC) 11/21/2024 Travel 11/21/[address] [address] Lexy Iniguez MD 11/16/2024 Refill [facility] [address] [place] [address] Shania Portillo RN Opioid type dependence, continuous (CMS/HCC) 11/14/2024 9:00 AM EST Office Visit [address] [address] Quintin Jordan MD Opioid type dependence, continuous (CMS/HCC) (Primary Dx) 11/14/2024 Travel 11/09/2024 Refill [facility] [address] [place] [address] Shania Portillo RN Opioid type dependence, continuous (CMS/HCC) 11/07/2024 Orders Only GENERIC EXTERNAL DATA DEPARTMENT Provider, Generic External Data 10/24/2024 9:00 AM EST Clinical Support [address] [address] Megan Serrano RN Opioid type dependence, continuous (CMS/HCC) (Primary Dx) 10/24/2024 Travel 10/23/2024 Refill [facility] [address] [place] [address] Shania Portillo, RN Opioid type dependence, continuous (CMS/HCC) from Last 3 Months Immunizations Name Administration Dates Next Due Hep B, adult 05/29/2024,09/15/2023 Influenza, seasonal, injectable, preservative fr ee 07/20/2024 Family History Medical History Relation Name Comments unspecified maligancy Father DM2,heart dx Mother Relation Name Status Comments Father Mother Social History Tobacco Use Types Packs/Day Years Used Date Smoking Tobacco: Every Day Cigarettes Passive Smoke Exposure: Current Smokeless Tobacco: Never Tobacco Cessation:Ready to Q uit: Not Asked; Counseling Given: Not Answered Comments:smoking at 23 y of age until [...] not to disclose 2022 1:52 PM EDT Last Filed Vital Signs Vital Sign Reading Time Taken Comments Blood Pressure 138/74 08/29/2024 10:12 AM EDT Pulse 67 07/20/2024 11:35 AM EDT Temperature 36.7 ??C (98 ??F) 07/20/2024 11:35 AM EDT Respiratory Rate 20 07/20/2024 11:35 AM EDT Oxygen Saturation 98% 07/20/2024 11:35 AM EDT Inhaled Oxygen Concentration - - Weight 85.1 kg (187 lb 9.6 oz) 07/20/2024 11:35 AM EDT Height 177.8 cm (5' 10 ) 07/20/2024 11:35 AM EDT Body Mass Index 26.92 07/20/2024 11:35 AM EDT Plan of Treatment Upcoming Encounters Date Type Department Care Team (Late st Contact Info) Description 01/23/2025 9:00 AM EDT Clinical Support [facility] [address] [place] [phone] Shania Portillo, ABIGAIL Health Maintenance Due Date Last Done Comments CT Colonography 1973 Colonoscopy 1973 Dental Prophylaxis 1973 Dental X-Ray: Bitewings 1973 FIT 1973 FOBT 1973 Sigmoidoscopy 1973 Alcohol/Substance Use Screening 1985 Family Planning (PISQ) 1988 DTaP/Tdap/Td Vaccines (1 - Tdap) 1992 Pneumococcal Vaccine: 50+ Years (1 of 2 - PCV) 1992 Zoster Vaccines (1 of 2) 2023 COVID-19 Vaccine (3 - 2023-2 5 season) 2024 05/01/2021, 02/27/2021 Hepatitis B Vaccines (3 of 3 - 19+ 3-dose series) 07/24/2024 05/29/2024, 09/15/2023 Dental Oral Exam 02/28/2025 08/29/2024 SDOH Screening 05/16/2025 05/16/2024 Depression Screening 05/29/2025 05/29/2024, 05/29/2024 Tobacco Screening 08/29/2025 08/29/2024 Colorectal Cancer Screening 06/27/2027 FIT DNA/Cologuard 06/27/2027 06/27/2024 Dental X-Ray: Full Mouth 08/30/2027 08/29/2024 Lipid Panel 08/16/2028 08/16/2023 RSV Patients and Patients Aged 60 years or older (1 - 1-dose 75+ series) 2048 HIV Screening Completed 08/16/2023 Hepatitis C Screening Completed 09/13/2023 , 08/16/2023 Influenza Vaccine Completed 07/20/2024 HIB Vaccines Aged Out No longer eligi ble based on patient's age to complete this topic HPV Vaccines Aged Out No longer eligi ble based on patient's age to complete this topic Hepatitis A Vaccines Aged Out No long er eligible based on patient's age to complete this topic IPV Vaccines Aged Out No longer eligi ble based on patient's age to complete this topic Meningococcal Vaccine Aged Out No zohra jany eligible based on patient's age to complete this topic RSV under 20 months Aged Out No longe r eligible based on patient's age to complete this topic Rotavirus Vaccines Aged Out No longer eligible based on patient's age to complete this topic Goals Goal Patient Goal Type Associated Problems Recent Progress Patient-Stated? Author Increase coping skills to promote long-term recovery and improve ability to perform daily activities General Not on track( 025 8:59 AM EDT) No Shania Portillo, message and delivery service pricer Procedure Name Priority Date/Time Associated Diagnosis Comments POCT KAJAL-14 URINE DRUG SCREEN Routine 01/16/2025 8:47 AM EDT Uncomplicated opioid dependence (CMS/HCC) POCT KAJAL-14 URINE DRUG SCREEN Routine 01/09/2025 9:16 AM EST Uncomplicated opioid dependence (CMS/HCC) POCT KAJAL-14 URINE DRUG SCREEN Routine 01/02/2025 9:04 AM EST Uncomplicated opioid dependence (CMS/HCC) POCT KAJAL-14 URINE DRUG SCREEN Routine 12/26/2024 9:09 AM EST Opioid type dependence, continuous (CMS/HCC) POCT KAJAL-14 URINE DRUG SCREEN Routine 12/19/2024 9:00 AM EST Uncomplicated opioid dependence (CMS/HCC) POCT KAJAL-14 URINE DRUG SCREEN Routine 12/12/2024 9:42 AM EST Opioid type dependence, continuous (CMS/HCC) POCT KAJAL-14 URINE DRUG SCREEN Routine 12/05/2024 8:57 AM EST Opioid type dependence, continuous (CMS/HCC) POCT KAJAL-14 URINE DRUG SCREEN Routine 11/28/2024 11:23 AM EST Opioid type dependence, continuous (CMS/HCC) POCT KAJAL-14 URINE DRUG SCREEN Routine 11/21/2024 9:32 AM EST Opioid type dependence, continuous (CMS/HCC) POCT KAJAL-14 URINE DRUG SCREEN Routine 11/14/2024 9:22 AM EST Opioid type dependence, continuous (CMS/HCC) SED RATE BY MODIFIED WESTERGREN Routine 11/07/2024 11:29 PM EST LIPASE Routine 11/07/2024 11:29 PM EST C-REACTIVE PROTEIN Routine 11/07/2024 11 :29 PM EST BASIC METABOLIC PANEL Routine 11/07/2024 11:29 PM EST HEPATIC FUNCTION PANEL Routine 11/07/2024 11:29 PM EST POCT KAJAL-14 URINE DRUG SCREEN Routine 10/24/2024 9:24 AM EST Opioid type dependence, continuous (CMS/HCC) PANORAMIC RADIOGRAPHIC IMAGE Routine 08/29/2024 10:00 AM EDT PERIODIC ORAL EVALUATION - ESTABLISHED PATIENT Routine 08/29/2024 10:00 AM EDT LAB COLOGUARD?? COLON CANCER SCREEN Routine 06/27/2024 4:45 PM EDT Colon cancer screening HEPATITIS C VIRAL RNA, QUANTITATIVE, REAL-TIME PCR Routine 09/13/2023 9:56 AM EST Hepatitis C antibody positive in blood HIV ANTIBODY/ANTIGEN ([place] DPH) Routine 08/16/2023 12:55 PM EDT LIPID PANEL, STANDARD Routine 08/16/2023 12:55 PM EDT Annual physical exam from Last 3 Months or Most Recently Relevant to Health Maintenance Results * POCT KAJAL-14 Urine Drug Screen (01/16/2025 8:47 AM EDT) Only the most recent of11 resultswithin the time period is included. THC Positive Cocaine Screen, Urine Positive Opiate Screen, Urine Negative Methamphetamine Screen Urine Negative Amphetamine Screen, Urine Negative Benzodiazepines Screen, Urine Negative Barbiturate Screen, Urine Negative Methadone Screen, Urine Negative Buprenophine Screen, Urine Positive TCA, Urine Negative MDMA Urine Negative ng/mL Oxycodone Screen, Urine Negative Phencyclidine (PCP), Urine Negative Propoxyphene, Urine Negative Fentanyl, Urine Positive Urine Urine specimen obtained by clean catch procedure / Unknown 01/16/2025 8:47 AM EDT Ramya Jett MD POINT OF CARE TEST ENTER/EDIT OR DERABLES Final Result * Sed Rate by Modified Kelliren (11/07/2024 11:29 PM EST) Erythrocyte Sedimentation Rate 7 0 - 15 MM/HR [facility] Comment:Patients with polycy themia and many hemoglobin abnormalitiesmay have depressed sed rates whereas patients with anemiamay have elevated sed rates. 11/07/2024 11:2 9 PM EST 11/07/2024 11:32 PM EST us Generic External Data Provider LAB BLOOD ORDERAB LES Final Result Performing Organization Address [facility] de Phone Number [facility] [address] [place] [phone] * (ABNORMAL) C-reactive Protein (11/07/2024 11:29 PM EST) C Reactive Protein 1.02(H) < or = 0.50 mg/dL [facility] 11/07/2024 11:2 9 PM EST 11/07/2024 11:32 PM EST us Generic External Data Provider LAB BLOOD ORDERAB LES Final Result Performing Organization Address [facility] Phone Number [facility] [address] [place] [phone] * Lipase (11/07/2024 11:29 PM EST) Lipase 16 8 - 78 U/L [facility] 11/07/2024 11:2 9 PM EST 11/07/2024 11:32 PM EST us Generic External Data Provider LAB BLOOD ORDERAB LES Final Result Performing Organization Address [facility] de Phone Number [facility] [address] [place] [phone] * Hepatic Function Panel (11/07/2024 11:29 PM EST) Bilirubin, Total 0.4 0.0 - 1.0 mg/dL [facility] Bilirubin, Direct 0.1 0.0 - 0.5 mg/dL [facility] Aspartate Amino Transferase 19 5 - 37 U/L [facility] Alanine Aminotransferase 11 0 - 40 U/L [facility] Total Protein 7.8 6.5 - 8.0 g/dL [facility] Albumin Level 4.5 3.5 - 5.0 g/dL [facility] Alkaline Phosphatase 115 39 - 117 U/L [facility] 11/07/2024 11:2 9 PM EST 11/07/2024 11:32 PM EST us Generic External Data Provider LAB BLOOD ORDERAB LES Final Result [facility] [address] [place] [phone] * (ABNORMAL) Basic Metabolic Panel (11/07/2024 11:29 PM EST) Sodium 140 135 - 145 mmol/L [facility] Potassium 3.7 3.3 - 5.1 mmol/L [facility] Chloride 106 96 - 108 mmol/L [facility] Carbon Dioxide 23 22 - 29 mmol/L [facility] Anion Gap 15 12 - 20 [facility] Urea Nitrogen (BUN) 17(H) 9 - 16 mg/dL [facility] Creatinine, Serum 0.96 0.5 - 1.4 mg/dL [facility] Creatinine Clr Calc Pharmacy 106.6 [facility] Comment:eGFR (calculated fro m the MDRD study equation) and eCrCl(calculated from the Cockcroft-Gault equation) are based ondifferent parameters and may not yield comparable results.If eCrCl result is absurd, please check patient'sheight/weight. Estimated Glomerular Filt Rate >60 [facility] Comment:Chronic Kidney Disea se: Estimated GFR < 60 mL/min/1.04p2Jrmtqk Kidney Disease: Estimated GFR < 15 mL/min/1.73m2 Glucose 108 60 - 115 mg/dL [facility] Calcium 9.2 8.4 - 10.2 mg/dL [facility] 11/07/2024 11:2 9 PM EST 11/07/2024 11:32 PM EST us Generic External Data Provider LAB BLOOD ORDERAB LES Final Result [facility] [address] [place] [phone] * Cologuard?? colon cancer screening (06/27/2024 4:45 PM EDT) Cologuard Result Negative Negative 07/11/20 1:14 AM EDT [facility] (CLIA #:[id number]) Comment: NEGATIVE TEST RESULT. A negative Cologuard result indicates a low likelihood that a colorectal cancer (CRC) or advanced adenoma (adenomatous polyps with more advanced pre-malignant features) ??is present. The chance that a person with a negative Cologuard test has a colorectal cancer is less than 1 in 1500 (negative predictive value >99.9%) or has an ??advanced adenoma is less than ??5.3% (negative predictive value 94.7%). These data are based on a prospective cross-sectional study of 10,000 individuals at average risk for colorectal cancer who were screened with both Cologuard and colonoscopy. (Nirmala Castellanos al, N Engl J Med 2014;370(14):1286- 1297) The normal value (reference range) for this assay is negative. COLOGUARD RE-SCREENING RECOMMENDATION: Periodic colorectal cancer screening is an important part of preventive healthcare for asymptomatic individuals at average risk for colorectal cancer. ??Following a negative Cologuard result, the [place] [employer] and U.S. Multi-Society Task Force screening guidelines recommend a Cologuard re-screening interval of 3 years. References: [place] [employer] Guideline for Colorectal Cancer Screening: https://www.cancer.org/cancer/hpyvt-fpogke-vhdzyo/cypkosaew-bjdxoidij-ctftoxp/ac s-rec ommendations.html.; Douglas DK, Trey CR, Radha ButlerK, Colorectal Cancer Screening: Recommendations for Physicians and Patients from the U.S. Multi-Society Task Force on Colorectal Cancer Screening , Am J Gastroenterology 2017; 112:8826-3251. TEST DESCRIPTION: Composite algorithmic analysis of stool DNA-biomarkers with hemoglobin immunoassay. ?? Quantitative values of individual biomarkers are not reportable and are not associated with individual biomarker result reference ranges. Cologuard is intended for colorectal cancer screening of adults of either sex, 45 years or older, who are at average-risk for colorectal cancer (CRC). Cologuard has been approved for use by the U.S. FDA. The performance of Cologuard was established in a cross sectional study of average-risk adults aged 50-84. Cologuard performance in patients ages 45 to 49 years was estimated by sub-group analysis of near-age groups. Colonoscopies performed for a positive result may find as the most clinically significant lesion: colorectal cancer [4.0%], advanced adenoma (including sessile serrated polyps greater than or equal to 1cm diameter) [20%] or non- advanced adenoma [31%]; or no colorectal neoplasia [45%]. These estimates are derived from a prospective cross-sectional screening study of 10,000 individuals at average risk for colorectal cancer who were screened with both Cologuard and colonoscopy. (Nirmala Castellanos al, N Engl J Med 2014;370(14):9982-1647.) Cologuard may produce a false negative or false positive result (no colorectal cancer or precancerous polyp present at colonoscopy follow up). A negative Cologuard test result does not guarantee the absence of CRC or advanced adenoma (pre-cancer). The current Cologuard screening interval is every 3 years. ([place] [employer] and U.S. Multi-Society Task Force). Cologuard performance data in a 10,000 patient pivotal study using colonoscopy as the reference method can be accessed at the following location: www.mobilePeople/results. Additional description of the Cologuard test process, warnings and precautions can be found at www.[employer].com. Stool specimen (specimen) 06/27/2024 4:45 PM EDT 06/29/2024 2:31 PM EDT us Lexy Odom MD LAB MOLECULAR KIM [employer] ORDERABLES Final Result [facility] (CLIA #:[id number]) [address] [place] [place] [address], * Hepatitis C Viral RNA, Quantitative, Real-Time PCR (09/13/2023 9:56 AM EST) Pathologist [facility] Hepatitis C Viral Load <15 NOT DETECTED NOT DETECTED IU/mL [facility] HCV Log PCR <1.18 NOT DETECTED NOT DETECTED Log IU/mL [facility] Comment:This test was perfor med using Real-Time Polymerase ChainReaction.Reportable Range: 15 IU/mL to 100,000,000 IU/mL(1.18 Log IU/mL to 8.00 Log IU/mL).The analytical performance characteristics of thisassay have been determined by [employer].The modifications have not been cleared or approved bythe FDA. This assay has been validated pursuant to theCLIA regulations and is used for clinical purposes.For more information on this test, go to:http://education.[employer]/faq/GGQ25s8(This link is being provided for informational/educational purposes only.)THIS TEST WAS PERFORMED AT:[employer] [place] [phone] ALVARADO MD Blood 09/13/2023 9:56 AM EST 09/13/2023 11:10 AM EST Lexy Odom MD LAB BLOOD ORDERAB LES Final Result [facility] [address] [place] [phone] * HIV Ab/Ag ([facility]) (08/16/2023 12:55 PM EDT) Pathologist [facility] HIV AB/AG Nonreactive Nonreactive [facility] Comment:HIV-1 p24 Ag and/or HIV-1/HIV-2 Ab not detected.A test result that is nonreactive does not exclude thepossibility of exposure to or infection with HIV-1 and/orHIV-2. Nonreactive results in this assay for individualswith prior exposure to HIV-1 and/or HIV-2 may be due toantigen and antibody levels that are below the limit ofdetection of this assay.The [employer] HIV Ag/Ab Combo assay result andsupplemental assay results should be interpreted inconjunction with the patient's clinical presentation,history and other laboratory results. If the results areinconsistent with clinical evidence, additional testing issuggested to confirm the result. 08/16/2023 12:5 5 PM EDT 08/16/2023 3:52 PM EDT us Lexy Odom MD LAB BLOOD ORDERAB LES Final Result Performing Organization Address City/[facility]/ZIP Co de Phone Number [facility] [address] [place] [phone] * Lipid Panel, Standard (08/16/2023 12:55 PM EDT) Triglycerides 45 <150 mg/dL [facility] Comment:Desirable Triglyceri de: less than 150 mg/dLBorderline High Triglyceride 150-199 mg/dLHigh Triglyceride: 200-499 mg/dLVery High Triglyceride: greater than or equal to 5OO mg/dL Cholesterol 116 <200 mg/dL [facility] Comment:Desirable Cholestero l: less than 200 mg/dLBorderline High Cholesterol: 200-239 mg/dLHigh Cholesterol: greater than 239 mg/dL LDL Cholesterol Calculated 57 <100 mg/dL [facility] Comment:Desirable LDL: less than 100 mg/dLNear Optimal/Above Optimal LDL: 110- 129 mg/dLBorderline High LDL: 130-159 mg/dLHigh LDL: 160-189 mg/dLVery High LDL: greater than or equal to 190 mg/dL HDL Cholesterol 50 >40 mg/dL [facility] Comment:Desirable HDL: great er than 40 mg/dL Note: This HDL assay may give artificially low results in patients with liver disease. Blood Venous blood specimen / Unknown 08/16/2023 12:55 PM EDT 08/16/2023 3:52 PM EDT us Lexy Odom MD LAB BLOOD ORDERAB LES Final Result Performing Organization Address City/[facility]/ZIP Co de Phone Number [facility] [address] [place] [address] [phone] from Last 3 Months or Most Recently Relevant to Health Maintenance Insurance [place] [facility] MEDICAID STAND ADULT Care Teams Media Job Titles Relationship Specialty Start Date End Date Lexy Iniguez MD [address] [place] [id number] PCP - General Internal Medicine 09/15/23 Emanuel Calvert DDS [address] [place] [address] Dental Slip Operator 09/19/24
--- OUTSIDE RECORDS SUMMARY | 2025-01-21 08:23 | XMS_ITS | Encounter Summary ---
Author Organization [employer] Address 75 [facility] 7t [place] [address] Care Team Providers Care Coke Crane Operator Name Role Phone Lexy Iniguez MD Primary Care Pro vider Emanuel Calvert DDJens Unavailable [phone] Reason for Visit * Reason Comments OBAT Encounter Details Date Type Department Care Team (Latest Contact Info) Description 01/16/2025 9:00 AM EDT Clinical Support [facility] [address] [place] [address] Mae Lopez, ABIGAIL [address] [place] [address] Uncomplicated opioid dependence (CMS/HCC) (Primary Dx) Social History Tobacco Use Types Packs/Day Years [...] PM EDT documented as of this encounter Progress Notes * Mae Lopez RN - 01/16/2025 9:00 AM EDT LAST GBAT VISIT 01/09/2025 UTOX: POS BUP, RACH, THC NEG FOR FEN Patient presents for Group-Based Opioid Treatment Reviewed the group goals, expectations and policies Consented to the group treatment options Actively participated in the group discussion with the topic of: Significance of Serenity Prayer (Part 2) Following staff present at the visit: Speech Pathology Teacher, Clinician, Team RN, Screwhead Stoner And Polisher Would like to continue with current MAT Opportunities provided to address individual medical/medication/ concerns Discussed about other options for his MAT (Sublocade vs. Methadone); declines these options Follow up in 1 week Patient presents for a routine OUD OBAT visit Discussed treatment options for opioid dependence Patient is tolerating current treatment of Buprenorphine/Naloxone SL Discussed behavioral modification and accessing services Counseling provided with a focus on support system, tools for achieving/maintaining recovery Reviewed barriers for these goals Discussed strategies to address when faced situations that may trigger use Continue with current visit schedule Narcan use discussed [place] Reviewed risk assessment for family planning, STI and PrEP Follow up in 1 week in GBAT Today 01/16/25 Individual visit Utox pos bup, rach, thc, fen Wild seen today for follow up for opioid use disorder. Came early today as he has court and cannotstay for group. Reports feeling well on current Suboxone dose of 24/6 mg daily and does not want trent BLAIR. Reviewed positive urine screen, pt surprised by fentanyl result. Pt states he has Narcan and fentanyl test strips and knows how to use them. Will return next week for group. Plan: Suboxone dosing schedule of 24/6 mg daily and management of side effects reviewed. Recovery support, harm reduction (including Narcan), and behavioral health attendance reviewed. Appointment for 1 week given. Patient expressed understanding and agreement with continuing plan of care. This information has been disclosed to you from records protected by federal confidentiality rules (42 CFR Part 2). The federal rules prohibit you from making any further disclosure of information inthis record that identifies a patient as having or having had a substance use disorder either directly, by reference to publicly available information, or through verification of such identification by another person unless further disclosure is expressly permitted by the written consent of the individual whose information is being disclosed or as otherwise permitted by (see2.3.1). The federal rules restrict any use of the information to investigate or prosecute with regard to a crime any patient with a substance use disorder, except as provided at 2.12??(5) and 2.65. documented in this encounter Plan of Treatment Upcoming Encounters Date Type Department Care Team (Late st Contact Info) Description 01/23/2025 9:00 AM EDT Clinical Support [facility] [address] [place] [address] Shaina Portillo, RN documented as of this encounter Goals Goal Patient Goal Type Associated Problems Recent Progress Patient-Stated? Author Increase coping skills to promote long-term recovery and improve ability to perform daily activities General Not on track( 025 8:59 AM EDT) No Shania Portillo, RN documented as of this encounter Procedures Procedure Name Priority Date/Time Associated Diagnosis Comments POCT KAJAL-14 URINE DRUG SCREEN Routine 01/16/2025 8:47 AM EDT Uncomplicated opioid dependence (CMS/HCC) documented in this encounter Results * POCT KAJAL-14 Urine Drug Screen (01/16/2025 8:47 AM EDT) THC Positive Cocaine Screen, Urine Positive Opiate [...] CARE TEST ENTER/EDIT OR DERABLES Final Result documented in this encounter Visit Diagnoses Diagnosis Uncomplicated opioid dependence (CMS/HCC)- Primary documented in this encounter Additional Health Concerns Assessment Noted Time PHQ-9 Depression Total Score: 7 05/29/20 11:39 AM EDT documented as of this encounter Care Teams Coke Crane Operator Relationship Specialty Start Date End Date Lexy Iniguez MD [address] [place] [address] PCP - General Internal Medicine 09/15/23 Emanuel Calvert DDS [address] [place] [address] Dental Steam Finisher 09/19/24 documented as of this encounter
--- OUTSIDE RECORDS SUMMARY | 2025-01-21 08:23 | XMS_ITS | Encounter Summary ---
Author Organization [employer] Address 75 [facility] 7t [place] [address] Care Team Providers Care Crew Mess Attendant Name Role Phone Lexy Iniguez MD Primary Care Pro vider Emanuel Calvert DDJens Unavailable [phone] Reason for Visit * Reason Onset Date Comments Med Refill 01/02/2025 Encounter Details Date Type Department Care Team (Late st Contact Info) Description 01/02/2025 Refill [facility] [address] [place] [address] Shania Portillo, ABIGAIL Opioid type dependence, continuous (CMS/HCC) Social History Tobacco Use Types Packs/Day Years [...] Description 01/23/2025 9:00 AM EDT Clinical Support [facility] [address] [place] [address] Shania Portillo, ABIGAIL documented as of this encounter Goals Goal Patient Goal Type Associated Problems Recent Progress Patient-Stated? Author Increase coping skills to promote long-term recovery and improve ability to perform daily activities General Not on track( 025 8:59 AM EDT) No Shania Portillo, RN documented as of this encounter Visit Diagnoses Diagnosis Opioid type dependence, continuous (CMS/HCC) Opioid type dependence, continuous documented in this encounter Additional Health Concerns Assessment Noted Time PHQ-9 Depression Total Score: 7 05/29/20 24 11:39 AM EDT documented as of this encounter Care Teams Crew Mess Attendant Relationship Specialty Start Date End Date Lexy Iniguez MD [address] [place] [address] PCP - General Internal Medicine 09/15/23 Emanuel Calvert DDS [address] [place] [address] Dental Director Of Strategic Initiatives 09/19/24 documented as of this encounter
--- OUTSIDE RECORDS SUMMARY | 2025-01-21 08:23 | XMS_ITS | Encounter Summary ---
Author Organization [employer] Address 75 [facility] 7t [place] [address] Care Team Providers Care Elementary Special Education Teacher Name Role Phone Lexy Iniguez MD Primary Care Pro vider Emanuel Calvetr DDJens Unavailable [phone] Reason for Visit * Reason Onset Date Comments Med Refill 01/09/2025 Encounter Details Date Type Department Care Team (Late st Contact Info) Description 01/09/2025 Refill [facility] [address] [place] [address] Shania Portillo, ABIGAIL Opioid type dependence, continuous [...] Description 01/23/2025 9:00 AM EDT Clinical Support [facility] [address] [place] [address] Shania Portillo, ABIGAIL documented as of this [...] documented as of this encounter Care Teams Elementary Special Education Teacher Relationship Specialty Start Date End Date Lexy Iniguez MD [address] [place] [id number] PCP - General Internal Medicine 09/15/23 Emanuel Calvert DDS [address] [place] [address] Dental Sheep Farm Manager 09/19/24 documented as of this encounter
--- OUTSIDE RECORDS SUMMARY | 2025-01-21 08:23 | XMS_ITS | Encounter Summary ---
Author Organization [employer] Address 75 [facility] 7t [place] [address] Care Team Providers Care Tone Cabinet Assembler Name Role Phone Lexy Iniguez MD Primary Care Pro vider Emanuel Calvert DDJens Unavailable [phone] Encounter Details Date Type Department Care Team (Latest Contact Info) Description 01/16/2025 Travel Social History Tobacco Use Types Packs/Day [...] Description 01/23/2025 9:00 AM EDT Clinical Support [facility] [address] [place] [address] Shania Portillo, RN documented as of this [...] documented as of this encounter Care Teams Tone Cabinet Assembler Relationship Specialty Start Date End Date Lexy Iniguez MD [address] [place] [address] PCP - General Internal Medicine 09/15/23 Emanuel Calvert DDS [address] [place] [address] Dental Tilting Saw Operator 09/19/24 documented as of this encounter
--- OUTSIDE RECORDS SUMMARY | 2025-01-21 08:23 | XMS_ITS | Encounter Summary ---
Author Organization [employer] Address 75 [facility] 7t [place] [address] Care Team Providers Care Marine Biologist Name Role Phone Lexy Iniguez MD Primary Care Pro vider Emanuel Calvert DDJens Unavailable [phone] Encounter Details Date Type Department Care Team (Latest Contact Info) Description 01/09/2025 Travel Social History Tobacco Use Types Packs/Day [...] Description 01/23/2025 9:00 AM EDT Clinical Support [facility] [address] [place] [address] Shania Portillo, RN documented as of this [...] documented as of this encounter Care Teams Marine Biologist Relationship Specialty Start Date End Date Lexy Iniguez MD [address] [place] [address] PCP - General Internal Medicine 09/15/23 Emanuel Calvert DDS [address] [place] [address] Dental Condenser Winder 09/19/24 documented as of this encounter
--- OUTSIDE RECORDS SUMMARY | 2025-01-21 08:23 | XMS_ITS | Encounter Summary ---
Author Organization [employer] Address 75 [facility] 7t [place] [address] Care Team Providers Care Cable Installer Repairer Helper Name Role Phone Lexy Iniguez MD Primary Care Pro vider Emanuel Calvert DDJens Unavailable [phone] Reason for Visit * Reason Comments GBOT Encounter Details Date Type Department Care Team (Latest Contact Info) Description 01/02/2025 9:00 AM EST Office Visit [facility] [address] [place] [address] Quintin Jordan MD [address] [place] [address] Uncomplicated opioid dependence (CMS/HCC) (Primary Dx) Social [...] as of this encounter Progress Notes * Quintin Jordan MD - 01/02/2025 9:00 AM EST LAST GBOT VISIT: 12/26/2024 UTOX: POS BUP, ROSAMARIA, THC, OPI, FEN Patient presents for Group-Based Opioid Treatment Reviewed the group goals, expectations and policies Consented to the group treatment options [facility] Actively participated in the group discussion, a continuation of last week, with the topic of: Changing Negative Perspectives of Detoxification Following staff present at the visit: Director Of Marketing, Clinician, Team RN, Rn Ante Partum Would like to continue with current MAT Opportunities provided to address individual medical/medication/BH concerns Have asked FLAKITA Clinician Grinder Brake Lining to call Wild and see how we can best support him. TODAY GBAT VISIT 01/02/2025 UTOX: POS BUP, ROSAMARIA, THC NEG FOR FEN Patient presents for Group-Based Opioid Treatment Reviewed the group goals, expectations and policies Consented to the group treatment options Actively participated in the group discussion with the topic of: Significance of Serenity Prayer Following staff present at the visit: Director Of Marketing, Clinician, Team RN, Rn Ante Partum Would like to continue with current MAT Opportunities provided to address individual medical/medication/BH concerns Discussed about other options for his MAT (Sublocade vs. Methadone); declines these options Follow up in 1 week Review of Systems Psychiatric/Behavioral: Negative for behavioral problems and dysphoric mood. The patient is not nervous/anxious. Physical Exam Constitutional: Appearance: Normal appearance. Pulmonary: Effort: Pulmonary effort is normal. Neurological: Mental Status: He is alert. Psychiatric: Mood and Affect: Mood normal. Behavior: Behavior normal. Wild was seen today for gbot. Diagnoses and all orders for this visit: Uncomplicated opioid dependence (CMS/HCC) (Primary) - POCT KAJAL-14 Urine Drug Screen Patient presents for a routine OUD OBAT [...] Follow up in 1 week in GBAT This information has been disclosed to you [...] Description 01/23/2025 9:00 AM EDT Clinical Support [address] [id number] Shania Portillo, ABIGAIL documented as of this encounter Goals Goal Patient Goal Type Associated Problems Recent Progress Patient-Stated? Author Increase coping skills to promote long-term recovery and improve ability to perform daily activities General Not on track( 025 8:59 AM EDT) Shania Andrade RN documented as of this encounter Procedures Procedure Name Priority Date/Time Associated Diagnosis Comments POCT KAJAL-14 URINE DRUG SCREEN Routine 01/02/2025 9:04 AM EST Uncomplicated opioid dependence (CMS/HCC) documented in this encounter Results * POCT KAJAL-14 Urine Drug Screen (01/02/2025 9:04 AM EST) THC Positive Cocaine Screen, Urine Positive Opiate Screen, Urine Negative Methamphetamine Screen Urine Negative Amphetamine Screen, Urine Negative Benzodiazepines Screen, Urine Negative Barbiturate Screen, Urine Negative Methadone Screen, Urine Negative Buprenophine Screen, Urine Positive TCA, Urine Negative MDMA Urine Negative ng/mL Oxycodone Screen, Urine Negative Phencyclidine (PCP), Urine Negative Propoxyphene, Urine Negative Fentanyl, Urine Negative Urine Urine specimen obtained by clean catch procedure / Unknown 01/02/2025 9:04 AM EST Quintin Jordan MD POINT OF CARE TEST ENTER/EDIT OR DERABLES Final Result documented in this encounter Visit Diagnoses Diagnosis Uncomplicated opioid dependence (CMS/HCC)- Primary documented in this encounter Additional Health Concerns Assessment Noted Time PHQ-9 Depression Total Score: 7 05/29/20 24 11:39 AM EDT documented as of this encounter Care Teams Cable Installer Repairer Helper Relationship Specialty Start Date End Date Lexy Iniguez MD [address] [place] [address] PCP - General Internal Medicine 09/15/23 Emanuel Calvert DDS [address] [place] [address] Dental Tool Sharpener 09/19/24 documented as of this encounter
--- OUTSIDE RECORDS SUMMARY | 2025-01-21 08:23 | XMS_ITS | Encounter Summary ---
Author Organization [employer] Address 75 [facility] 7t [place] [address] Care Team Providers Care Ecclesiastical Worker Name Role Phone Lexy Iniguez MD Primary Care Pro vider Emanuel Calvert DDJens Unavailable [phone] Reason for Visit * Reason Comments GBAT Encounter Details Date Type Department Care Team (Latest Contact Info) Description 01/09/2025 9:00 AM EST Office Visit [facility] 230 [place] [address] Quintin Jordan MD [address] [place], [place] [phone] Uncomplicated opioid dependence (CMS/HCC) (Primary Dx) Social [...] as of this encounter Progress Notes * Qiuntin Jordan MD - 01/09/2025 9:00 AM EST LAST GBAT VISIT 01/02/2025 UTOX: POS BUP, ROSAMARIA, THC NEG FOR FEN Patient presents for Group-Based Opioid Treatment Reviewed the group goals, expectations and policies Consented to the group treatment options Actively participated in the group discussion with the topic of: Significance of Serenity Prayer Following staff present at the visit: Education Faculty Member, Clinician, Team RN, Shrimper Would like to continue with current MAT Opportunities provided to address individual medical/medication/BH concerns Discussed about other options for his MAT (Sublocade vs. Methadone); declines these options Follow up in 1 week TODAY GBAT VISIT 01/09/2025 UTOX: POS BUP, ROSAMARIA, THC NEG FOR FEN Patient presents for Group-Based Opioid Treatment Reviewed the group goals, expectations and policies Consented to the group treatment options Actively participated in the group discussion with the topic of: Significance of Serenity Prayer (Part 2) Following staff present at the visit: Education Faculty Member, Clinician, Team RN, Shrimper Would like to continue with current MAT [...] Behavior normal. Wild was seen today for gbat. Diagnoses and all orders for this visit: [...] Description 01/23/2025 9:00 AM EDT Clinical Support [address] [id number] Shania Portillo, RN documented as of this encounter Goals Goal Patient Goal Type Associated Problems Recent Progress Patient-Stated? Author Increase coping skills to promote long-term recovery and improve ability to perform daily activities General Not on track( 025 8:59 AM EDT) Shania Andrade RN documented as of this encounter Procedures Procedure Name Priority Date/Time Associated Diagnosis Comments POCT KAJAL-14 URINE DRUG SCREEN Routine 01/09/2025 9:16 AM EST Uncomplicated opioid dependence (CMS/HCC) documented in this encounter Results * POCT KAJAL-14 Urine Drug Screen (01/09/2025 9:16 AM EST) THC Positive Cocaine Screen, Urine [...] obtained by clean catch procedure / Unknown 01/09/2025 9:16 AM EST Quintin Jordan MD POINT OF CARE TEST ENTER/EDIT OR DERABLES Final Result documented in this encounter Visit Diagnoses Diagnosis Uncomplicated opioid dependence (CMS/HCC)- Primary documented in this encounter Additional Health Concerns Assessment Noted Time PHQ-9 Depression Total Score: 7 05/29/20 24 11:39 AM EDT documented as of this encounter Care Teams Ecclesiastical Worker Relationship Specialty Start Date End Date Lexy Iniguez MD [address] [place] [address] PCP - General Internal Medicine 09/15/23 Emanuel Calvert DDS [address] [place] [address] Dental Supervisor [place] 09/19/24 documented as of this encounter
--- OUTSIDE RECORDS SUMMARY | 2025-01-21 08:23 | XMS_ITS | Encounter Summary ---
Author Organization [employer] Address 75 [facility] 7t [place] [address] Care Team Providers Care Chair Springer Name Role Phone Lexy Iniguez MD Primary Care Pro vider Emanuel Calvert DDJens Unavailable [phone] Encounter Details Date Type Department Care Team (Latest Contact Info) Description 12/26/2024 Travel Social History Tobacco Use Types Packs/Day [...] Description 01/23/2025 9:00 AM EDT Clinical Support [facility] MED[facility]INE [address] [place] [address] Shania Portillo, RN documented as of this [...] documented as of this encounter Care Teams Chair Springer Relationship Specialty Start Date End Date Lexy Iniguez MD [address] [place] [address] PCP - General Internal Medicine 09/15/23 Emanuel Calvert DDS [address] [place] [address] Dental Stem Roller Operator 09/19/24 documented as of this encounter
--- OUTSIDE RECORDS SUMMARY | 2025-01-21 08:23 | XMS_ITS | Encounter Summary ---
Author Organization [employer] Address [address] [place] [address] [place] [address] Care Team Providers Care Pillowcase Maker Name Role Phone Lexy Iniguez MD Primary Care Pro vider Emanuel Calvert DDJens Unavailable [phone] Reason for Visit * Reason Onset Date Comments Hospital Follow-up 05/15/2024 Encounter Details Date Type Department Care Team ([facility] st Contact Info) Description 05/15/2024 Telephone [facility] [address] [place] [address] Lexy Iniguez MD [address] [place], [place] [phone] Hospital Follow-up Social History Tobacco Use Types Packs/Day Years [...] encounter Miscellaneous Notes * Telephone Encounter - Megan Contreras - 05/15/2024 1:04 PM EDT Tc from pt spouse requesting a hospital follow up appt pt will be discharge on 05/16/24 with worth of two days of meds was advised must see provider as soon as possible to continue treatment, pt willbe getting discharge from a rehab spouse does not remember name. ADMITTED on 04/09/24 documented in this encounter Plan of Treatment Upcoming Encounters Date Type Department Care Team (Late st Contact Info) Description 01/23/2025 9:00 AM EDT Clinical Support [facility] [address] [place] [address] Shania Portillo RN documented as of this encounter Visit Diagnoses Not on filedocumented in this encounter Additional Health Concerns Assessment Noted Time PHQ-9 Depression Total Score: 0 09/15/20 23 11:38 AM EST documented as of this encounter Care Teams Pillowcase Maker Relationship Specialty Start Date End Date Lexy Iniguez MD [address] [place] [address] PCP - General Internal Medicine 09/15/23 Emanuel Calvert DDS [address] [place] [address] Dental Wet Process [place] 09/19/24 documented as of this encounter
--- OUTSIDE RECORDS SUMMARY | 2025-01-21 08:23 | XMS_ITS | Encounter Summary ---
Author Organization [email or web address] Address [address] [facility] [address] [place] [address] Care Team Providers Care Glass Driller Name Role Phone Lexy Iniguez MD Primary Care Pro vider Emanuel Calvert DDJens Unavailable [phone] Reason for Visit * Reason Comments GBAT Encounter Details Date Type Department Care Team (Latest Contact Info) Description 12/26/2024 9:00 AM EST Clinical Support [facility] [address] [place] [address] Shania Portillo, ABIGAIL Opioid type dependence, continuous (CMS/HCC) (Primary Dx) Social History Tobacco Use [...] as of this encounter Progress Notes * Shania Portillo RN - 12/26/2024 9:00 AM EST LAST GBAT VISIT 12/19/2024 UTOX: POS BUP, ROSAMARIA, THC, OPI, FEN Patient presents for Group-Based Opioid Treatment Reviewed the group goals, expectations and policies Consented to the group treatment options Actively participated in the group discussion with the topic of: Changing Negative Perspectives ofDetoxification Following staff present at the visit: Negative Cleaner, Clinician, Team RN, Food Service Clerk Would like to continue with current MAT Opportunities provided to address individual medical/medication/BH concerns Discussed about other options for his MAT (Sublocade vs. Methadone); declines these options THIS GBOT VISIT: 12/26/2024 UTOX: POS BUP, ROSAMARIA, THC, OPI, FEN Patient presents for Group-Based Opioid Treatment Reviewed the group goals, expectations and policies Consented to the group treatment options [facility] Actively participated in the group discussion, a continuation of last week, with the topic of: Changing Negative Perspectives of Detoxification Following staff present at the visit: Negative Cleaner, Clinician, Team RN, Food Service Clerk Would like to continue with current MAT Opportunities provided to address individual medical/medication/BH concerns Have asked FLAKITA Clinician Back Up Scan Coordinator to call Wild and see how we can best support him. Follow up in 1 week in AT This information has been disclosed to you [...] Description 01/23/2025 9:00 AM EDT Clinical Support [facility] [address] [place] [id number] Shania Portillo, RN documented as of this [...] Comments POCT KAJAL-14 URINE DRUG SCREEN Routine 12/26/2024 9:09 AM EST Opioid type dependence, continuous ([facility]) documented in this encounter Results * POCT KAJAL-14 Urine Drug Screen (12/26/2024 9:09 AM EST) THC Positive Cocaine Screen, Urine Positive Opiate Screen, Urine Positive Methamphetamine Screen Urine Negative Amphetamine Screen, Urine Negative Benzodiazepines Screen, Urine Negative Barbiturate Screen, Urine Negative Methadone Screen, Urine Negative Buprenophine Screen, Urine Positive TCA, Urine Negative MDMA Urine Negative ng/mL Oxycodone Screen, Urine Negative Phencyclidine (PCP), Urine Negative Propoxyphene, Urine Negative Fentanyl, Urine Positive Urine Urine specimen obtained by clean catch procedure / Unknown 12/26/2024 9:09 AM EST Ramya Jtet MD POINT OF CARE TEST ENTER/EDIT OR DERABLES Final Result documented in this encounter Visit Diagnoses Diagnosis Opioid type dependence, continuous (CMS/[facility])- Primary Opioid type dependence, continuous documented in this encounter Additional Health Concerns Assessment Noted Time PHQ-9 Depression Total Score: 7 05/29/20 11:39 AM EDT documented as of this encounter Care Teams Glass Driller Relationship Specialty Start Date End Date Lexy Iniguez MD [address] [place] [id number] PCP - General Internal Medicine 09/15/23 Emanuel Calvert DDS [address] [place] [phone] Dental Extern 09/19/24 documented as of this encounter
--- OUTSIDE RECORDS SUMMARY | 2025-01-21 08:23 | XMS_ITS | Encounter Summary ---
Author Organization [employer] Address [address] [facility] [address] [place] [address] Care Team Providers Care Edge Bander Hand Name Role Phone Lexy Iniguez MD Primary Care Pro vider Emanuel Calvert DDJens Unavailable [phone] Reason for Visit * Reason Onset Date Comments Med Refill 12/28/2024 Encounter Details Date Type Department Care Team (Late st Contact Info) Description 12/28/2024 Refill [facility] [address] [place] [address] Shania Portillo, ABIGAIL Opioid type dependence, continuous [...] Description 01/23/2025 9:00 AM EDT Clinical Support [facility] [address] [place] [id number] Shania Portillo, ABIGAIL documented as of this [...] documented as of this encounter Care Teams Edge Bander Hand Relationship Specialty Start Date End Date Lexy Iniguez MD [address] [place] [id number] PCP - General Internal Medicine 09/15/23 Emanuel Calvert DDS [address] [place] [phone] Dental Research Director 09/19/24 documented as of this encounter
--- OUTSIDE RECORDS SUMMARY | 2025-01-21 08:23 | XMS_ITS | Data Portability ---
Author Organization [place] [facility] Address [address] [place] [id number] Care Team Providers Care Porcelain Enamel Repairer Name Role Phone [facility] Primary Care Provider Assessment Encounter Date Assessment Date Assessment LastModified by Organization Details LastModified Time 11/28/2020 11/28/2020 Overview/History : 45-year-old male with past medical history significant for depression, hypertension, anxiety, opiate use disorder, and chronic back pain, new to [facility] presents for complaints of right year pain. He states this pain started about 5 days ago. He does use earplugs. He says the pain as 9/10. He tried ibuprofen with some relief. He states that he has intermittent and hearing loss and that his ear is draining yellow fluid. He states he is never had pain like this before. He denies fever, chills, headache, nasal congestion, or sore throat. Exam: afebrile, RRR, mildly hypertensive, normal resps, O2 sat 100% on RA, non-toxic, well appearing. GENERAL: well developed, well nourished, appears stated age, sitting comfortably in no acute distress. HEENT: normocephalic, atraumatic, sinuses nontender, PERRL, EOMI, sclera anicteric, no conjunctival injection, external auditory canal clear on the left, EAC on the right edematous with scant white to light yellow exudate, TM pearly white with cone of light on the left, unable to visualize TM on the right due to edema, hearing intact, no loss of post auricular ear fold, right mastoid bone mildly TTP but no erythema or edema, nares patent, mmm, b/l TMJ nontender, no click with jaw opening. NECK: trachea midline, no masses, cervical lymphadenopathy. RESP: normal I:E, clear to auscultation bilaterally, no wheezes, rhonchi, or rales. CARDIO: RRR, normal S1, S2, no murmurs, rubs, or gallops, JVD absent, radial, PT/AT/DP pulses 2+ bilaterally. DDx considered, but not limited to: AOE - likely with edema and drainage from ear canal and use of ear plugs AOM - less likely without fever, sinus pain or tenderness FB - none visualized TM perf - unlikely hearing intact mastoiditis - unlikely, afebrile, no post auricular edema or erythema Work up/Results: no further w/u indicated at this time. Plan/Discussion: You have acute otitis externa from using ear plugs. Throw away ear plugs. Avoid touching ear. Use antibiotic otic drops as perscribed. Lay on left side, instill drops in right ear, continuing laying on left side for at least 5 minutes. Do not let tip of dropper touch ear. Wash hands often. Do not get water in ear. Ok to take Ibuprofen up to 600 mg every 6 hours as needed for pain. Follow up with PCP in 3-5 days. [facility] you [facility]. We cannot always find the exact cause of your symptoms during your initial visit. Please follow up with your primary care provider or specialist to be rechecked or seek medical attention if your symptoms do not go away or get worse. If you develop any new or worsening symptoms and need after hours care, please go to nearest ER and/or call 911. If you have additional concerns or develop a change in your condition between 8am-10pm, please call [facility] at [phone] to help navigate your care Time On Scene with Patient: 00:31:02 kandy Not available 11/28/2020 11:54:50 Plan of Treatment Reminders Order Date Submit Date Provider Last Modified By Organization Details Last Modified Time Details Appointments None recorded. Lab None recorded. Referral None recorded. Procedures None recorded. Surgeries None recorded. Imaging None recorded. Medication Orders neomycin-p olymyxin-h ydrocort 3.5 mg/mL-10,0 00 unit/mL-1 % ear solution 2020 021 INTERFACE [facility]-2 0180, [address], [place], [place], [id number], 11:34:51 ibuprofen 200 mg tablet 2020 021 [email or web address] Not available 17:45:32 Patient TargetsNo targets recorded. Patient InstructionsNo instructions recorded. Reason for Referral None Reported. Problems Name Problem SNOMED Code Status Onset Date Resolution Date Notes Provider Name and Address Organization Details Recorded Time Opioid abuse [id number] Active 021 [facility] [address] [facility] [place], [address] , [place] [facility] 11/28/2020 11:17:47 Problem Notes None recorded. Medical Equipment None Reported. Allergies No known drug allergies Medications Name Sig Start Date Stop Date Status Note LastModified by Organization Details LastModified Time neomycin-po lymyxin-hyd rocort 3.5 mg/mL-10,00 0 unit/mL-1 % ear solution INSTILL 4 DROPS INTO AFFECTED EAR(S) BY OTIC ROUTE 3 TIMES PER DAY FOR 7-10 DAYS 2020 active Not Available Not Available Not Avai lable clonidine HCl 0.1 mg tablet TAKE 1 TABLET BY MOUTH 3 TIMES A DAY 11/28 completed Not Available Not Available Not Available acetaminoph en 325 mg tablet TK 2 TS PO TID PRF FEVER 11/28 completed Not Available Not Available Not Available trazodone 50 mg tablet TAKE 1 TABLET BY MOUTH EVERYDAY AT BEDTIME 11/28 completed Not Available Not Available Not Available ibuprofen 800 mg tablet TAKE 1 TABLET BY MOUTH 3 TIMES A DAY NEEDED FOR PAIN active Not Available Not Available No t Available nicotine (polacrilex ) 2 mg gum CHEW 1 PIECE OF GUM DIRECTED EVERY 4 TO 6 HOURS active Not Available Not Available No t Available prednisone 20 mg tablet TAKE 3 TABS DAILY X 3 DAYS, THEN 2 TABS DAILY X 3 DAYS, THEN 1 TAB DAILY X 3 DAYS 11/28 completed Not Available Not Available Not Available gabapentin 400 mg capsule TAKE 2 CAPSULES BY MOUTH 3 TIMES A DAY active Not Available Not Available No t Available sertraline 100 mg tablet TAKE 1.5 TABLET BY MOUTH DAILY active Not Available Not Available No t Available hydroxyzine pamoate 50 mg capsule TAKE 1 CAPSULE BY MOUTH 4 TIMES A DAY NEEDED FOR ANXIETY active Not Available Not Available No t Available hydroxyzine HCl 50 mg tablet TAKE 1 2 TABLET BY MOUTH FOUR TIMES A DAY NEEDED active Not Available Not Available No t Available amlodipine 5 mg tablet TK 1 T PO D active Not Available Not Available No t Available gabapentin 800 mg tablet TAKE 1 TABLET BY MOUTH 3 TIMES A DAY active Not Available Not Available No t Available nicotine (polacrilex ) 4 mg gum CHEW 1 PIECE OF GUM EVERY HOUR active Not Available Not Available No t Available mirtazapine 30 mg tablet TAKE 1 TABLET BY MOUTH EVERYDAY AT BEDTIME active Not Available Not Available No t Available ibuprofen 400 mg tablet TAKE 1 TABLET BY MOUTH EVERY 8 HOURS FOR 3 DAYS active Not Available Not Available No t Available nicotine 21 mg/24 hr daily transdermal patch active Not Available Not Available Not Available ibuprofen 200 mg tablet Take 1-2 tablets by mouth every 6 hours as needed for pain 2020 active Not Available Not Available Not Avai lable gabapentin 300 mg capsule TAKE 2 CAPSULES BY MOUTH 3 TIMES A DAY active Not Available Not Available No t Available mirtazapine 15 mg tablet active Not Available Not Available Not Available ibuprofen 600 mg tablet active Not Available Not Available Not Available sertraline 50 mg tablet active Not Available Not Available Not Available nicotine 7 mg/24 hr daily transdermal patch active Not Available Not Available Not Available hydroxyzine pamoate 25 mg capsule active Not Available Not Available N ot Available nicotine (polacrilex ) 2 mg buccal lozenge TAKE 1 LOZENGE BY MOUTH EVERY 2 HOURS X6 WEEKS active Not Available Not Available No t Available Suboxone 8 mg-2 mg sublingual film 2 FILM UNDER THE TONGUE DAILY active Not Available Not Available No t Available Suboxone 4 mg-1 mg sublingual film DISSOLVE 1 FILM UNDER THE TONGUE ONCE active Not Available Not Available No t Available Suboxone 12 mg-3 mg sublingual film DISSOLVE 1 FILM UNDER THE TONGUE ONCE A DAY active Not Available Not Available No t Available Vitals Date Recorded Respiratory rate Oxygen saturation Oxygen saturation in Arterial blood by Pulse oximetry Body temperature Heart rate Systolic blood pressure Diastolic blood pressure Provider Name and Address Organization Details Last Updated DateTime 1 16 /min 100 % 100 % 98.2 [degF] 86 /min 132 mm[Hg] 82 mm[Hg] Not Available [facility] 1 11:20:46 Social History Question Answer Notes LastModified by Organizat ion Details LastModified Time Tobacco Smoking Status Never Smoker [facility] [address] [place], [address], [place] [facility] 11/28/2020 11:20:49 Do You Have An Advance Directive? No kandy Information not available 11/28/2020 Excessive Alcohol Or Drug Use Yes Opiate Information not available 11/28/2020 Do You Or Have You Ever Used Smokeless Tobacco? Former Smokeless Tobacco User [email or web address] Information not available 11/28/2020 How Many Years Have You Smoked Tobacco? 7 Information not available 11/28/2020 Sex: Unknown Functional Status None recorded. Mental Status None recorded. Family History Relationship Description Onset Age of this Age Resolved Age Notes LastModified by Organization Details LastModified Time Father Hypertensive disorder kandy Not available 2020 11:20:15 Mother Hypertensive disorder [email or web address] Not available 2020 11:20:21 Medical History Condition Response Diabetes N Coronary Artery Disease N Cancer N Stroke N Depression Y COPD N Asthma N High Cholesterol N Pulmonary Embolism N Hypertension Y Kidney Disease N Past Encounters Encounter ID Performer Location Encounter Start Date Encounter Closed Date Diagnosis/Indication Diagnosis SNOMED-CT Code Diagnosis ICD10 Code Diagnosis Note [id number] [facility]CLAUDE MINOR [facility] [address] [place] [address] 11/28/2020 11:14:46 12/02/2020 02:08:17 Otitis externa of right ear [id number] 793131 H60.91 Health Concerns Section Related Observation LastModified by Organization Detai ls LastModified Time None Recorded Concern Status LastModified by Organization Details LastModified Time None Recorded Advance Directives Directive N: Payers Encounter Date Sequence Insurance Name Policy Number Policy Chavira Covered Member ID Chavira Member ID Guarantor Name 11/28/2020 1 [facility] (MEDICAID HMO) [id number] Wild Costello [id number] Wild Peterson Notes Date Note Type Note Provider Name and Address Organization Details Recorded Time 11/28/2020 text/html 45-year-old male with past medical history significant for depression, hypertension, anxiety, opiate use disorder, and chronic back pain, new to [facility] presents for complaints of right year pain. He states this pain started about 5 days ago. He does use earplugs. He says the pain as 9/10. He tried ibuprofen with some relief. He states that he has intermittent and hearing loss and that his ear is draining yellow fluid. He states he is never had pain like this before. He denies fever, chills, headache, nasal congestion, or sore throat. [facility]CL[facility] [place], [address], [place] [facility] 11/28/2020 11:55:04
[2025-01-21 08:29] VITALS: BP 124/90; PULSE 68; BMI 29.9
--- NOTE | 2025-01-21 08:29 | MHC.OFFVIS ---
Vital Signs 01/21/25 08:29 Height 5 ft 10 in Weight 208 lb 1.862 oz BMI 29.9 BP 124/90 H Blood Pressure Location Lt brachial Position Sitting Pulse 68 Pulse Source Monitor Intake Visit Reasons: Preop/ Mazzucco/ hernia/ abn ekg Medical Lab Director Required: No Allergies No Known Allergies Allergy (Verified 01/21/25 08:31) Medication List - Last Reconciled 01/21/25 by Miryam Dimas, SOLAR THERMAL TECHNICIAN-C amlodipine 5 mg PO DAILY buprenorphine-naloxone 8-2 mg (Suboxone) 1 film sublingual BID escitalopram oxalate 20 mg PO DAILY gabapentin 100 mg PO Q8H hydroxyzine pamoate 50 mg PO Q4H PRN nicotine 1 patch topical DAILY nicotine (polacrilex) 4 mg PO Q2H PRN HPI HPI Preop/ Mazzucco/ hernia/ abn ekg: Details: Wild is a 49 yo male with PMH of substance abuse, HTN, abnormal EKG who is preop for inguinal hernia repair. He was referred to cardiology for preop cardiovascular clearance. Today he presents for cardiology consultation. He denies any prior known cardiac history. He has no chest discomfort at rest or with activity. He denies any shortness of breath, PND, orthopnea, edema. No heart palpitations, lightheadedness, presyncope, syncope. He does normal day-to-day activities but no routine exercise. He admits to smoking marijuana daily and using cocaine periodically. He denies alcohol intake. He says his mother and father both had heart problems and diabetes but he does not recall further details. He has 7 brothers and 1 sister but does not know if they have any cardiac issues. [facility] Medical History (Updated 01/21/25 @ 11:46 by Miryam Dimas, SOLAR THERMAL TECHNICIAN-C) Elevated LFTs Hx of hepatitis C Smoker Anxiety OCD (obsessive compulsive disorder) Lumbar back pain HTN (hypertension) Depression Active substance abuse Surgical History No pertinent past surgical history Social History Are you a primary healthcare technician to a significant other at home: No Do you presently have visiting nurse or other home services: No Unable to assess alcohol history related to: Unable to respond Alcohol intake: unknown Patient Tobacco Use Status: Current everyday Tobacco user Tobacco use type: Cigarette Cigarettes Per Day: 4 Years Smoked: 10 Second Hand Smoke Exposure: No Substance Use Type: Heroin Review of Systems Const All systems reviewed & are unremarkable except as noted in HPI and below ENT Denies dizziness Card Denies chest pain, Denies chest pain at rest, Denies chest pain with activity, Denies rapid heart rate, Denies pedal edema, Denies edema, Denies leg edema, Denies lightheadedness, Denies palpitations, Denies dyspnea, Denies dyspnea on exertion and Denies orthopnea Resp Denies cough, Denies dyspnea and Denies dyspnea on exertion GI Denies hematochezia and Denies change in stool character Musc Denies abnormal gait, Denies limited range of motion, Denies muscle cramps, Denies muscle weakness, Denies numbness, Denies radiating pain into limb, Denies stiffness and Denies tingling Neuro Denies abnormal gait, Denies dizziness, Denies numbness and Denies tingling Endo Denies palpitations Physical Exam Vital Signs: Last Vital Signs Pulse 68 01/21/25 08:29 BP 124/90 H 01/21/25 08:29 BMI result Body Mass Index 29.9 Const General: cooperative, healthy appearing, comfortable and no acute distress Orientation/consciousness: patient oriented x3 Neck Neck: Yes normal visual inspection and Yes no JVD Resp Effort & Inspection: normal respiratory effort Auscultation: clear to auscultation bilaterally, no crackles, no rales, no rhonchi and no wheezes Cardio Rate: regular rate Rhythm: regular rhythm Heart sounds: S1 normal heart sound present, S2 normal heart sound present, no gallops, no murmurs and no rubs Neuro General: patient oriented x3 Extrem General: Yes normal to inspection and No no pedal edema Psych Appearance: grossly normal Mental Status: mental status grossly normal Speech and movement: Normal speech and movement present Office Procedures EKG Details: Today, read by me, SR, flattened T waves inferolateral leads, rate 68, QTc 399ms [id number], Complete Assessment & Plan Assessment & Plan (1) Abnormal EKG: Code(s): R94.31 - Abnormal electrocardiogram [ECG] [EKG] Category: Medical Plan: EKGs done on 04/14/2024 and 08/15/2024 when he was in the emergency room for noncardiac reasons shows ST and T-wave abnormalities in the inferior lateral leads suggesting possible ischemia. His drug screens at those times were positive for fentanyl, cocaine and other substances. Troponin level done in April was normal. No cardiac history. Cardiac risks of substance abuse, hypertension. EKG done today showing normal sinus rhythm with nonspecific T-wave abnormality, rate 68. He is preop for hernia repair surgery. Will check an echocardiogram to assess for structural heart disease. Will check a exercise nuclear stress test to evaluate for any ischemia. Cardiology follow-up 4-6 weeks, sooner if needed. (2) HTN (hypertension): Code(s): I10 - Essential (primary) hypertension Category: Medical Plan: History of hypertension. Blood pressure today 124/90. He reports compliance with his meds. (3) Active substance abuse: Code(s): F19.10 - Other psychoactive substance abuse, uncomplicated Category: Medical Plan: As above (4) Preop cardiovascular exam: Code(s): Z01.810 - Encounter for preprocedural cardiovascular examination Category: Medical Plan: Preop for hernia surgery with Dr. Cameron in the near future. Cardiac testing being done and this note will be updated once test results are known. Plan Time spent on chart review, documentation, interviewed assessment Orders: Orders CA stress test Today I10 - Essential (primary) hypertension, R94.31 - Abnormal electrocardiogram [ECG] [EKG], Z01.810 - Encounter for preprocedural cardiovascular examination CA echo transthoracic complete Today I10 - Essential (primary) hypertension, R94.31 - Abnormal electrocardiogram [ECG] [EKG] NM cardiolite stress test Today I10 - Essential (primary) hypertension, R94.31 - Abnormal electrocardiogram [ECG] [EKG], Z01.810 - Encounter for preprocedural cardiovascular examination Coding Level of Care Code New Pt Level 4 (04637) Complex EM visit Add On G2211 Diagnoses Abnormal EKG R94.31 HTN (hypertension) I10 Active substance abuse F19.10 Preop cardiovascular exam Z01.810 CPT Codes EKG - CPT: [id number], Complete ([id number]) Time Spent (min) 36
== END 2025-01-21 09:05 | disposition home or self-care (01) ==
LOC: HO.HCS 08:15
PROVIDERS: Visit Provider Nurse Practitioner Family
DX: R94.31 Abnormal electrocardiogram [ECG] [EKG] (principal); I10 Essential (primary) hypertension; F19.10 Other psychoactive substance abuse, uncomplicated; Z01.810 Encounter for preprocedural cardiovascular examination
CPT/HCPCS: 93010; 99204

== ENCOUNTER → 2025-01-21 08:14 | Outpatient (BNVA) | payer MEDICAID, SELFPAY | PROVIDERS: Visit Provider Nurse Practitioner Family | DX: Z01.810 Encounter for preprocedural cardiovascular examination (principal); R94.31 Abnormal electrocardiogram [ECG] [EKG]; I10 Essential (primary) hypertension; F19.10 Other psychoactive substance abuse, uncomplicated | CPT/HCPCS: 93005; 99212 ==

== ENCOUNTER → 2025-02-05 08:39 | Outpatient (REF) | payer MEDICAID, SELFPAY ==
--- NOTE | 2025-02-05 08:44 | CA_ITS ---
Transthoracic Echocardiogram Patient (Last, First, Middle): Juan Pablo Costello Miriam Rome Gender: Male Date of : 1975 Age: 49 Procedure Date: 02/05/2025 Procedure Type: Transthoracic Echocardiogram Location: OP Height: 177.8 cm Weight: 95.26 kg BSA: 2.13 m2 Heart Rate: bpm BP: 140 / 92 mmHg Clinical Practitioner: TO Referring MD: Miryam MALDONADO Symptoms: R94.31 - Abnormal electrocardiogram [ECG] [EKG] Study Quality: Fair ECG Rhythm: Sinus bradycardia Conclusions: - The left ventricular systolic function is normal. The visually estimated ejection fraction is between 55-60%. - No obvious valvular pathology seen on this study. Findings Procedure Information Contrast agent, definity, is being given per protocol without apparent complications. Left Ventricle Normal left ventricular cavity size. There is normal left ventricular wall thickness. The left ventricular systolic function is normal. The visually estimated ejection fraction is between 55-60%. There is no evidence of regional wall motion abnormalities. Diastolic function is normal for age. Right Ventricle Mildly increased right ventricular cavity size. There is normal right ventricular systolic function. Atria Both atria are normal in size. Aortic Valve There is a normal trileaflet aortic valve. There is no aortic valve stenosis. There is no aortic valve regurgitation. Mitral Valve The mitral valve appears normal. There is no mitral valve regurgitation. There is no mitral valve stenosis. Pulmonic Valve The pulmonic valve is likely normal. Tricuspid Valve Normal tricuspid valve structure. There is trace tricuspid valve regurgitation. There is no evidence of pulmonary hypertension. Great Vessels The asc aorta is normal in size. Venous The inferior vena cava is mildly dilated and collapses greater than 50% with inspiration. Pericardium/Pleural There is no evidence of pericardial effusion. Prior Study Comparison No prior study available for comparison. Recommendations, Care & Conclusions No obvious valvular pathology seen on this study. Measurements 2D Linear Measurements IVSd: 0.89 0.6-0.9/0.6-1.0 cm LVIDd: 5.12 3.9-5.3/4.2-5.9 cm LVIDd Index: 2.40 2.4-3.2/2.2-3.1 cm/m2 LVIDs: 3.15 2.0-3.6 cm LVPWd: 0.73 0.7-1.1 cm LA Diam: 3.90 2.7-3.8/3.0-4.0 cm LAIDs Index: 1.83 1.5-2.3 cm/m2 LV Mass: 178.28 67-162/88-224 g LV Mass Index: 83.70 43-95/49-115 g/m2 LVOT Diam: 2.20 3.0+(-)1.3 cm 2D Systolic Function EF 4C: 58.40 >55% EF 2C: 63.40 >55% EF BiP: 59.70 >55% Mitral Valve MV Pk E: 0.51 MV PK A: 0.36 MV Decel Time: 215.00 E/A: 1.40 E'Lateral: 12.10 E'Medial: 6.64 E/E' Med: 7.60 E/E' Lat: 4.20 PHT: 63.00 MVA PHT: 3.49 Decel [place]: 2.35 Aortic Valve AoV Pk Rusty: 1.32 AoV Mn Rusty: 0.79 AoV VTI: 0.29 AoV Pk Grad: 7.00 Aov Mn Grad: 3.00 TJ Cont.VTI: 2.84 LVOT LVOT Pk Rusty: 0.82 LVOT Mn Rusty: 0.58 LVOT VTI: 0.21 LVOT Pk Grad: 3.00 LVOT Mn Grad: 2.00 LVOT Diam: 2.20 LVOT Area: 3.80 Diastolic Function MV Pk E: 0.51 MV Pk A: 0.36 E/A: 1.40 E'Medial: 6.64 E/E' Med: 7.60 E' Laterial: 12.10 E/E' Lat: 4.20 Right Ventricle TAPSE (mm): 26.00 TVS' Rusty: 14.00 Tricuspid Valve TR Pk Rusty: 2.20 TR Pk Grad: 19.00 RA Press: 8.00 RVSP: 27.00 Great Vessels Aorta Ao Asc: 3.30 2.1-3.4 cm Updated in Other Vendor System with Status of Final Vinny Allan MD electronically signed on 02/07/2025 10:40:13 AM with status of Final
--- OUTSIDE RECORDS SUMMARY | 2025-02-05 09:01 | XMS_ITS | Encounter Summary ---
Author Organization [employer] Address [address] [facility] 7t [place] [address] Care Team Providers Care Technology Applications Engineer Name Role Phone Lexy Iniguez MD Primary Care Pro vider Emanuel Calvert DDJens Unavailable [phone] Reason for Visit * Reason Onset Date Comments Med Refill 01/30/2025 Encounter Details Date Type Department Care Team (Late st Contact Info) Description 01/30/2025 Refill [facility] [address] [place] [address] Shania Portillo, ABIGAIL Opioid type dependence, continuous [...] Care Team (Late st Contact Info) Description 02/13/2025 9:00 AM EDT Office Visit [facility] [address] [place] [phone] Quintin Jordan MD [address] [place] [phone] documented as of this encounter Goals Goal Patient Goal Type Associated Problems Recent Progress Patient-Stated? Author Increase coping skills to promote long-term recovery and improve ability to perform daily activities General On track( 025 2:00 PM EDT) No Shania Portillo, RN Note: Not using opioids; still using rach. Attendance has been a bit improved. Stayed to the end. documented as of this encounter Visit Diagnoses Diagnosis Opioid type dependence, continuous (CMS/HCC) Opioid type dependence, continuous documented in this encounter Additional Health Concerns Assessment Noted Time PHQ-9 Depression Total Score: 7 05/29/20 24 11:39 AM EDT documented as of this encounter Care Teams Technology Applications Engineer Relationship Specialty Start Date End Date Lexy Iniguez MD [address] [place] [address] [phone] PCP - General Internal Medicine 09/15/23 Emanuel Calvert DDS [address] [place] [address] [phone] Dental Benefits Clerk 09/19/24 documented as of this encounter
--- OUTSIDE RECORDS SUMMARY | 2025-02-05 09:01 | XMS_ITS | Clinical Summary ---
Author Organization [employer] Address [address] [facility] 7[address] [place] [address] Care Team Providers Care Hydrometeorological Technician Name Role Phone Lexy Iniguez MD Primary Care Pro vider Emanuel Calvert DDJens Unavailable [phone] Allergies No known active allergies Medications [...] for 7 days. Do not start before February 06, 2025. 21 Film 02/07/20 25 025 Active Buprenorphine HCl-Naloxone HCl (Suboxone) 8-2 MG SL filmIndications: Opioid type dependence, continuous (CMS/HCC) Place 1 Film under the tongue 3 times daily for 7 days. Do not start before January 09, 2025. 21 Film 01/10/20 25 025 Discontinued(R eorder (will not trigger notification to Pharmacy)) Buprenorphine HCl-Naloxone HCl (Suboxone) 8-2 MG SL filmIndications: Opioid type dependence, continuous (CMS/HCC) Place 1 Film under the tongue 3 times daily for 7 days. Do not start before January 16, 2025. 21 Film 01/17/20 25 025 Discontinued(R eorder (will not trigger notification to Pharmacy)) Buprenorphine HCl-Naloxone HCl (Suboxone) 8-2 MG SL filmIndications: Opioid type dependence, continuous (CMS/HCC) Place 1 Film under the tongue 3 times daily for 7 days. Do not start before January 23, 2025. 21 Film 01/24/20 25 025 Discontinued(R eorder (will not trigger notification to Pharmacy)) Buprenorphine HCl-Naloxone HCl (Suboxone) 8-2 MG SL filmIndications: Opioid type dependence, continuous (CMS/HCC) Place 1 Film under the tongue 3 times daily for 7 days. 21 Film 01/31/20 25 025 Discontinued(R eorder (will not trigger [...] Encounters Date Type Department Care Team Description 01/30/2025 9:00 AM EDT Office Visit [facility] [address] [place] [phone] Quintin Jordan MD Opioid type dependence, continuous (CMS/HCC) (Primary Dx) 01/30/[address] [facility] [address] [place] [address] Shania Portillo RN Opioid type dependence, continuous (CMS/HCC) 01/30/2025 Travel 01/23/2025 9:00 AM EDT Clinical Support [facility] [address] [place] [address] Shania Portillo, ABIGAIL Opioid type dependence, continuous (CMS/HCC) (Primary Dx) 01/23/2025 Travel 01/21/[address] [facility] [address] [place] [address] Shania Portillo RN Opioid type dependence, continuous (CMS/HCC) 01/16/2025 9:00 AM EDT Clinical Support [address] [address] Mae Lopez RN Uncomplicated opioid dependence (CMS/HCC) (Primary Dx) 01/16/2025 Travel 01/09/2025 9:00 AM EST Office Visit [address] [address] Quintin Jordan MD Uncomplicated opioid dependence (CMS/HCC) (Primary Dx) 01/09/[address] [facility] [address] [place] [address] Shania Portillo RN Opioid type dependence, continuous (CMS/HCC) 01/09/2025 Travel 01/02/2025 9:00 AM EST Office Visit [address] [address] Quintin Jordan MD Uncomplicated opioid dependence (CMS/HCC) (Primary Dx) 01/02/[address] [facility] [address] [place] [address] Shania Portillo RN Opioid type dependence, continuous (CMS/HCC) 01/02/2025 Travel 12/28/[address] [facility] [address] [place] [address] Shania Portillo RN Opioid type dependence, continuous (CMS/HCC) 12/26/2024 9:00 AM EST Clinical Support [address] [address] Shania Portillo RN Opioid type dependence, continuous (CMS/HCC) (Primary Dx) 12/26/2024 Travel 12/19/2024 9:00 AM EST Office Visit [address] [address] Quintin Jordan MD Uncomplicated opioid dependence (CMS/HCC) (Primary Dx) 12/19/[address] [facility] [address] [place] [address] Shania Portillo RN Opioid type dependence, continuous (CMS/HCC) 12/19/2024 Travel 12/12/2024 9:00 AM EST Office Visit [address] [address] Quintin Jordan MD Opioid type dependence, continuous (CMS/HCC) (Primary Dx) 12/12/[address] [facility] [address] [place] [address] Shania Portillo RN Opioid type dependence, continuous (CMS/HCC) 12/12/2024 Travel 12/05/2024 9:00 AM EST Office Visit [address] [address] Quintin Jordan MD Opioid type dependence, continuous (CMS/HCC) (Primary Dx) 12/05/[address] [address] Shania Portillo RN Opioid type dependence, continuous (CMS/HCC) 12/05/2024 Patient Outreach [address] [address] Emanuel Swanson Recovery Supports 12/05/2024 Travel 11/28/2024 9:00 AM EST Office Visit [address] [address] Quintin Jordan MD Opioid type dependence, continuous (CMS/HCC) (Primary Dx) 11/28/[address] [address] Shania Portillo RN Opioid type dependence, continuous (CMS/HCC) 11/28/2024 Travel 11/22/2024 Patient Outreach [address] [address] Zi Wu Recovery Supports 11/21/2024 9:00 AM EST Office Visit [address] [address] Quintin Jordan MD Opioid type dependence, continuous (CMS/HCC) (Primary Dx) 11/21/[address] [address] Shania Portillo RN Opioid type dependence, continuous (CMS/HCC) 11/21/2024 Travel 11/21/[address] [facility] [address] [place] [address] Lexy Iniguez MD 11/16/[address] [facility] [address] [place] [address] Shania Portillo RN Opioid type dependence, continuous (CMS/HCC) 11/14/2024 9:00 AM EST Office Visit [facility] [address] [place] [address] Quintin Jordan MD Opioid type dependence, continuous (CMS/HCC) (Primary Dx) 11/14/2024 Travel 11/09/[address] [facility] [address] [place] [address] Shania Portillo RN Opioid type dependence, continuous (CMS/HCC) 11/07/2024 Orders Only GENERIC EXTERNAL DATA DEPARTMENT Provider, Generic External Data from Last 3 Months Immunizations Name Administration [...] Description 02/13/2025 9:00 AM EDT Office Visit [facility] [address] [place], [place] [phone] Quintin Jordan MD [address] [place] [address] Health Maintenance Due Date Last Done Comments [...] General On track( 025 2:00 PM EDT) Shania Andrade RN Note: Not using opioids; still using rach. Attendance has been a bit improved. Stayed to the end. Procedures Procedure Name Priority Date/Time Associated Diagnosis Comments POCT KAJAL-14 URINE DRUG SCREEN Routine 01/30/2025 9:34 AM EDT Opioid type dependence, continuous (CMS/HCC) POCT KAJAL-14 URINE DRUG SCREEN Routine 01/23/2025 8:41 AM EDT Opioid type dependence, continuous (CMS/HCC) POCT KAJAL-14 URINE DRUG SCREEN Routine 01/16/2025 [...] FUNCTION PANEL Routine 11/07/2024 11:29 PM EST PANORAMIC RADIOGRAPHIC IMAGE Routine 08/29/2024 10:00 AM [...] Results * POCT KAJAL-14 Urine Drug Screen (01/30/2025 9:34 AM EDT) Only the most recent of12 resultswithin the time period is included. THC [...] obtained by clean catch procedure / Unknown 01/30/2025 9:34 AM EDT Quintin Jordan MD POINT OF CARE TEST ENTER/EDIT OR DERABLES Final Result * Sed Rate by Modified Kera (11/07/2024 11:29 PM EST) Erythrocyte Sedimentation Rate 7 0 - 15 MM/HR [facility] Comment:Patients with polycy themia and many hemoglobin abnormalitiesmay have depressed sed rates whereas patients with anemiamay have elevated sed rates. 11/07/2024 11:2 9 PM EST 11/07/2024 11:32 PM EST Generic External Data Provider LAB BLOOD ORDERAB LES Final Result Performing Organization Address [facility] Co de Phone Number [facility] [address] [place] [phone] * (ABNORMAL) C-reactive Protein (11/07/2024 11:29 PM EST) C Reactive Protein 1.02(H) < or = 0.50 mg/dL [facility] 11/07/2024 11:2 9 PM EST 11/07/2024 11:32 PM EST Generic External Data Provider LAB BLOOD ORDERAB LES Final Result Performing Organization Address [facility] Co de Phone Number [facility] [address] [place] [phone] * Lipase (11/07/2024 11:29 PM EST) Pathologist [facility] Lipase 16 8 - 78 U/L [facility] 11/07/2024 11:2 9 PM EST 11/07/2024 11:32 PM EST Generic External Data Provider LAB BLOOD ORDERAB LES Final Result Performing Organization Address [facility] Co de Phone Number [facility] [address] [place] [address] [phone] * Hepatic Function Panel (11/07/2024 11:29 PM EST) [facility] Bilirubin, Total 0.4 0.0 - 1.0 mg/dL [facility] Bilirubin, Direct 0.1 0.0 - 0.5 mg/dL [facility] Aspartate Amino Transferase 19 5 - 37 U/L [facility] Alanine Aminotransferase 11 0 - 40 U/L [facility] Total Protein 7.8 6.5 - 8.0 g/dL [facility] Albumin Level 4.5 3.5 - 5.0 g/dL [facility] Alkaline Phosphatase 115 39 - 117 U/L [facility] 11/07/2024 11:2 9 PM EST 11/07/2024 11:32 PM EST Generic External Data Provider LAB BLOOD ORDERAB LES Final Result Performing Organization Address [facility]/ZIP Co de Phone Number [facility] [address] [place] [address] [phone] * (ABNORMAL) Basic Metabolic Panel (11/07/2024 11:29 PM EST) Pathologist [facility] Sodium 140 135 - 145 mmol/L [facility] Potassium 3.7 3.3 - 5.1 mmol/L [facility] Chloride 106 96 - 108 mmol/L [facility] Carbon Dioxide 23 22 - 29 mmol/L [facility] Anion Gap 15 12 - 20 [facility] Urea Nitrogen (BUN) 17(H) 9 - 16 mg/dL [facility] Creatinine, Serum 0.96 0.5 - 1.4 mg/dL [facility] Creatinine Clr Calc Pharmacy 106.6 [facility] Comment:eGFR (calculated fro m the MDRD study equation) and eCrCl(calculated from the Cockcroft-Gault equation) are based ondifferent parameters and may not yield comparable results.If eCrCl result is absurd, please check patient'sheight/weight. Estimated Glomerular Filt Rate >60 [facility] Comment:Chronic Kidney Disea se: Estimated GFR < 60 mL/min/1.50m6Tduhbn Kidney Disease: Estimated GFR < 15 mL/min/1.73m2 Glucose 108 60 - 115 mg/dL [facility] Calcium 9.2 8.4 - 10.2 mg/dL [facility] 11/07/2024 11:2 9 PM EST 11/07/2024 11:32 PM EST us Generic External Data Provider LAB BLOOD ORDERAB LES Final Result [facility] [address] [place] [phone] * Cologuard?? colon cancer screening (06/27/2024 4:45 PM EDT) Cologuard Result Negative Negative 07/11/20 24 1:14 AM EDT [facility] (CLIA #:[id number]) Comment: NEGATIVE TEST RESULT. A negative Cologuard [...] cancer. ??Following a negative Cologuard result, the [place] [employer] and U.S. Multi-Society Task Force screening guidelines recommend a Cologuard re-screening interval of 3 years. References: [place] [employer] Guideline for Colorectal Cancer Screening: https://www.cancer.org/cancer/cfokq-wbhdqo-drfgac/rjdwiojmf-awpwsgcob-ilnqszo/ac s-rec ommendations.html.; Douglas BOYKIN, Trey THOMAS, Radha ButlerK, Colorectal Cancer Screening: Recommendations for Physicians and Patients from the U.S. Multi-Society Task Force on Colorectal Cancer Screening , Am J Gastroenterology 2017; 112:8211-6984. TEST DESCRIPTION: Composite algorithmic analysis of stool [...] screened with both Cologuard and colonoscopy. (Nirmala Lane, N Engl J Med 2014;370(14):2882-1359.) Cologuard may produce a false negative or false positive result (no colorectal cancer or precancerous polyp present at colonoscopy follow up). A negative Cologuard test result does not guarantee the absence of CRC or advanced adenoma (pre-cancer). The current Cologuard screening interval is every 3 years. ([place] [employer] and U.S. Multi-Society Task Force). Cologuard performance data in a 10,000 patient pivotal study using colonoscopy as the reference method can be accessed at the following location: www.[employer]/results. Additional description of the Cologuard test process, warnings and precautions can be found at www.cologFlexGenrd.com. Stool specimen (specimen) 06/27/2024 4:45 PM EDT 06/29/2024 2:31 PM EDT Lexy Odom MD LAB MOLECULAR [employer] ORDERABLES Final Result [facility] (CLIA #:[id number]) [place] [address], * Hepatitis C Viral RNA, Quantitative, Real-Time PCR (09/13/2023 9:56 AM EST) Hepatitis C Viral Load <15 NOT DETECTED NOT DETECTED IU/mL [facility] HCV Log PCR <1.18 NOT DETECTED NOT DETECTED Log IU/mL [facility] Comment:This test was perfor med using Real-Time Polymerase ChainReaction.Reportable Range: 15 IU/mL to 100,000,000 IU/mL(1.18 Log IU/mL to 8.00 Log IU/mL).The analytical performance characteristics of thisassay have been determined by [facility].The modifications have not been cleared or approved bythe FDA. This assay has been validated pursuant to theCLIA regulations and is used for clinical purposes.For more information on this test, go to:http://education.[employer]oGen/faq/YFN10d9(This link is being provided for informational/educational purposes only.)THIS TEST WAS PERFORMED AT:[facility] [address] [place] [phone] ALVARADO MD Blood 09/13/2023 9:56 AM EST 09/13/2023 11:10 AM EST us Lexy Odom MD LAB BLOOD ORDERAB LES Final Result Performing Organization Address City/[facility]/ZIP Co de Phone Number [facility] [address] [place] [address] [phone] * HIV Ab/Ag ([facility]) (08/16/2023 12:55 PM EDT) HIV AB/AG Nonreactive Nonreactive [facility] Comment:HIV-1 p24 Ag and/or HIV-1/HIV-2 Ab not detected.A test result that is nonreactive does not exclude thepossibility of exposure to or infection with HIV-1 and/orHIV-2. Nonreactive results in this assay for individualswith prior exposure to HIV-1 and/or HIV-2 may be due toantigen and antibody levels that are below the limit ofdetection of this assay.The Trovit HIV Ag/Ab Combo assay result andsupplemental assay results should be interpreted inconjunction with the patient's clinical presentation,history and other laboratory results. If the results areinconsistent with clinical evidence, additional testing issuggested to confirm the result. 08/16/2023 12:5 5 PM EDT 08/16/2023 3:52 PM EDT us Lexy Odom MD LAB BLOOD ORDERAB LES Final Result [facility] [address] [place] [phone] [phone] * Lipid Panel, Standard (08/16/2023 12:55 PM EDT) Triglycerides 45 <150 mg/dL [facility] Comment:Desirable Triglyceri de: less than 150 mg/dLBorderline High Triglyceride 150-199 mg/dLHigh Triglyceride: 200-499 mg/dLVery High Triglyceride: greater than or equal to 5OO mg/dL Cholesterol 116 <200 mg/dL [facility] Comment:Desirable Cholestero l: less than 200 mg/dLBorderline High Cholesterol: 200-239 mg/dLHigh Cholesterol: greater than 239 mg/dL LDL Cholesterol Calculated 57 <100 mg/dL [facility] Comment:Desirable LDL: less than 100 mg/dLNear Optimal/Above Optimal LDL: 110- 129 mg/dLBorderline High LDL: 130-159 mg/dLHigh LDL: 160-189 mg/dLVery High LDL: greater than or equal to 190 mg/dL HDL Cholesterol 50 >40 mg/dL [facility] Comment:Desirable HDL: great er than 40 mg/dL Note: This HDL assay may give artificially low results in patients with liver disease. Blood Venous blood specimen / Unknown 08/16/2023 12:55 PM EDT 08/16/2023 3:52 PM EDT us Lexy Odom MD LAB BLOOD ORDERAB LES Final Result [facility] [address] [place] [phone] from Last 3 Months or Most Recently Relevant to Health Maintenance Insurance [facility] Care Teams Hydrometeorological Technician Relationship Specialty Start Date End Date Lexy Iniguez MD [address] [place], [place] [phone] PCP - General Internal Medicine 09/15/23 Emanuel Calvert DDS [address] [place], [place] [phone] Dental Television Camera Operator 09/19/24
--- OUTSIDE RECORDS SUMMARY | 2025-02-05 09:01 | XMS_ITS | Encounter Summary ---
Author Organization [employer] Address [address] [place] [address] [place] [address] Care Team Providers Care Die Cut Operator Name Role Phone Lexy Iniguez MD Primary Care Pro vider Emanuel Calvert DDJens Unavailable [phone] Reason for Visit * Reason Onset Date Comments Medication Question 05/23/2024 Encounter Details Date Type Department Care Team ([facility] st Contact Info) Description 05/23/2024 Telephone [facility] [address] [place] [address] Lexy Iniguez MD [address] [place] [address] Medication Question Social History Tobacco Use Types [...] 11:26 AM EDT Tc from Loren with [employer] calling in regards to pt's medication. Loren is requesting for medication pt was discharged with during hospital visit can be filled early before HDF appt. Mediation in question: Trazodone AmLODipine Melatonin Citalopram If any questions you can contact Loren at [phone]. documented in this encounter Plan of Treatment Upcoming Encounters Date Type Department Care Team (Late st Contact Info) Description 02/13/2025 9:00 AM EDT Office Visit [facility] [address] [place] [address] Quintin Jordan MD [address] [place], [place] [phone] documented as of this encounter Visit Diagnoses Not on filedocumented in this encounter Additional Health Concerns Assessment Noted Time PHQ-9 Depression Total Score: 0 09/15/20 11:38 AM EST documented as of this encounter Care Teams Die Cut Operator Relationship Specialty Start Date End Date Lexy Iniguez MD [address] [place] [phone] PCP - General Internal Medicine 09/15/23 Emanuel Calvert DDS [address] [place] [address] [phone] Dental Farm Technician 09/19/24 documented as of this encounter
--- OUTSIDE RECORDS SUMMARY | 2025-02-05 09:01 | XMS_ITS | Encounter Summary ---
Author Organization [employer] Address [address] [place] [address] [place] [address] Care Team Providers Care Taste Tester Name Role Phone Lexy Iniguez MD Primary Care Pro vider Emanuel Calvert DDJens Unavailable [phone] Reason for Visit * Reason Onset Date Comments Hospital Follow-up 05/15/2024 Encounter Details Date Type Department Care Team ([facility] st Contact Info) Description 05/15/2024 Telephone [facility] [address] [place] [address] Lexy Iniguez MD [address] [place], [place] [phone] Hospital Follow-up Social History Tobacco Use Types [...] Description 02/13/2025 9:00 AM EDT Office Visit [facility] [address] [place] [address] Quintin Jordan MD [address] [place] [address] documented as of this encounter Visit Diagnoses Not on filedocumented in this encounter Additional Health Concerns Assessment Noted Time PHQ-9 Depression Total Score: 0 09/15/20 23 11:38 AM EST documented as of this encounter Care Teams Taste Tester Relationship Specialty Start Date End Date Lexy Iniguez MD [address] [place], [place] [phone] PCP - General Internal Medicine 09/15/23 Emanuel Calvert DDS [address] [place], [place] [phone] Dental Cattle Dipper 09/19/24 documented as of this encounter
== END ==
LOC: HO.CARD 08:39
PROVIDERS: PCP Student in an Organized Health Care Education/Training Program; Visit Provider Nurse Practitioner Family
DX: R94.31 Abnormal electrocardiogram [ECG] [EKG] (principal); I10 Essential (primary) hypertension
CPT/HCPCS: 93306; Q9957

== ENCOUNTER → 2025-02-05 08:44 | Outpatient (BNV) | payer MEDICAID, SELFPAY | PROVIDERS: PCP Student in an Organized Health Care Education/Training Program; Visit Provider Internal Medicine | DX: R94.31 Abnormal electrocardiogram [ECG] [EKG] (principal) | CPT/HCPCS: 93306 ==

== ENCOUNTER → 2025-02-20 08:27 | Outpatient (REF) | payer MEDICAID, SELFPAY ==
--- NOTE | 2025-02-20 08:30 | CA_ITS ---
Acquisition Time: 2025-02-20 09:52:32 Total Exercise Time: 00:10:00 Test Indications: Abnormal ECG Medications: AMLODIPINE SUBOXONE ESCITALOPRAM GABAPENTIN NICOTINE PATCH HYDROXIZINE Protocol: LIONEL Max HR: 151 BPM 89% of Pred: 169 BPM Max BP: 142/68 mmHG Max Work Load: 11.7 METS Exercise stress test with exercise 10 mins of Lionel Protocol, achieving 89% MPHR, with reports of mild SOB, no chest pain, without any arrythmias, with normotensive response to exercise. Without EKG changes meeting criteria for ischemia. In recovery, breathing returned to baseline. Test reviewed with Dr. Osei. Referred By: Miryam Dimas Electronically Signed By: Yefri Benitez
--- OUTSIDE RECORDS SUMMARY | 2025-02-20 08:41 | XMS_ITS | Encounter Summary ---
Author Organization [employer] Address [address] [facility] 7t [place] [address] Care Team Providers Care Train Caller Name Role Phone Lexy Iniguez MD Primary Care Pro vider Emanuel Calvert DDJens Unavailable [phone] Encounter Details Date Type Department Care Team (Latest Contact Info) Description 02/19/2025 Travel Social History Tobacco Use Types Packs/Day [...] Care Team (Late st Contact Info) Description 02/27/2025 9:00 AM EDT Clinical Support [address] [address] Shania Portillo RN 03/06/2025 9:00 AM EDT Office Visit [address] [address] Quintin Jordan MD [address] [place] [address] documented as of this encounter Goals Goal Patient Goal Type Associated Problems Recent Progress Patient-Stated? Author Increase coping skills to promote long-term recovery and improve ability to perform daily activities General On track( 025 11:43 AM EDT) No Shania Portillo, RN Note: Not using opioids; still using rach. Attendance has been a bit improved. Stayed to the end. 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 documented as of this encounter Visit Diagnoses Not on filedocumented in this encounter Additional Health Concerns Assessment Noted Time PHQ-9 Depression Total Score: 7 05/29/20 24 11:39 AM EDT documented as of this encounter Care Teams Train Caller Relationship Specialty Start Date End Date Lexy Iniguez MD [address] [place] [address] PCP - General Internal Medicine 09/15/23 Emanuel Calvert DDS [address] [place] [address] [place] [address] Dental Production Boring Machine Operator 09/19/24 documented as of this encounter
--- OUTSIDE RECORDS SUMMARY | 2025-02-20 08:41 | XMS_ITS | Clinical Summary ---
Author Organization [employer] Address [address] [facility] [address] [place] [address] Care Team Providers Care Machining Manager Name Role Phone Lexy Iniguez MD Primary Care Pro vider Emanuel Calvert DDJens Unavailable [phone] Allergies No known active allergies Medications [...] under the tongue 3 times daily for 14 days. Do not start before February 13, 2025. 21 Film 1 02/14/20 25 025 Active Buprenorphine HCl-Naloxone HCl (Suboxone) [...] 06, 2025. 21 Film 02/07/20 25 025 Discontinued(R eorder (will not trigger [...] Encounters Date Type Department Care Team Description 02/19/2025 10:30 AM EDT Clinical Support [facility] [address] [place] [address] Shania Portillo RN Opioid type dependence, continuous (CMS/HCC) (Primary Dx) 02/19/2025 Travel 02/13/2025 9:00 AM EDT Office Visit [facility] [address] [place] [address] Quintin Jordan MD Uncomplicated opioid dependence (CMS/HCC) (Primary Dx) 02/13/2025 Travel 02/07/2025 Refill [facility] [address] [place] [address] Shania Portillo RN Opioid type dependence, continuous (CMS/HCC) 02/06/2025 9:00 AM EDT Office Visit [address] [address] Quintin Jordan MD Uncomplicated opioid dependence (CMS/HCC) (Primary Dx) 02/06/2025 Population Health Risk Score Community [facility] (C[facility]) Department [address] [phone] Provider, Population Health Generic 02/06/2025 Travel 01/30/2025 9:00 AM EDT Office Visit [facility] [place] [address] Quintin Jordan MD Opioid type dependence, continuous (CMS/HCC) (Primary Dx) 01/30/2025 Refill [facility] [place] [address] Shania Portillo RN Opioid type dependence, continuous (CMS/HCC) 01/30/2025 Travel 01/23/2025 9:00 AM EDT Clinical Support [facility] [address] [place] [address] Shania Portillo RN Opioid type dependence, continuous (CMS/HCC) (Primary Dx) 01/23/2025 Travel 01/21/2025 Refill [facility] [place] [address] Shania Portillo RN Opioid type dependence, continuous (CMS/HCC) 01/16/2025 9:00 AM EDT Clinical Support [facility] [address] [place] [address] Mae Lopez RN Uncomplicated opioid dependence (CMS/HCC) (Primary Dx) 01/16/2025 Travel 01/09/2025 9:00 AM EST Office Visit [facility] [address] [place] [address] Quintin Jordan MD Uncomplicated opioid dependence (CMS/HCC) (Primary Dx) 01/09/2025 Refill [facility] [address] [place] [address] Shania Portillo RN Opioid type dependence, continuous (CMS/HCC) 01/09/2025 Travel 01/02/2025 9:00 AM EST Office Visit [facility] [address] [place] [address] Quintin Jordan MD Uncomplicated opioid dependence (CMS/HCC) (Primary Dx) 01/02/2025 Refill [facility] [address] [place] [address] Shania Portillo RN Opioid type dependence, continuous (CMS/HCC) 01/02/2025 Travel 12/28/2024 Refill [facility] [place] [address] Shania Portillo RN Opioid type dependence, continuous (CMS/HCC) 12/26/2024 9:00 AM EST Clinical Support [facility] [place] [address] Shania Portillo RN Opioid type dependence, continuous (CMS/HCC) (Primary Dx) 12/26/2024 Travel 12/19/2024 9:00 AM EST Office Visit [facility] [place] [address] Quintin Jordan MD Uncomplicated opioid dependence (CMS/HCC) (Primary Dx) 12/19/2024 Refill [facility] [place] [address] Shania Portillo RN Opioid type dependence, continuous (CMS/HCC) 12/19/2024 Travel 12/12/2024 9:00 AM EST Office Visit [address] [place] [address] Quintin Jordan MD Opioid type dependence, continuous (CMS/HCC) (Primary Dx) 12/12/2024 Refill [facility] [place] [address] Shania Portillo RN Opioid type dependence, continuous (CMS/HCC) 12/12/2024 Travel 12/05/2024 9:00 AM EST Office [place] [address] Quintin Jordan MD Opioid type dependence, continuous (CMS/HCC) (Primary Dx) 12/05/2024 [place] [address] Shania Portillo RN Opioid type dependence, continuous (CMS/HCC) 12/05/2024 Patient Outreach [address] [address] Emanuel Swanson Recovery Supports 12/05/2024 Travel 11/28/2024 9:00 AM EST Office Visit [address] [address] Quintin Jordan MD Opioid type dependence, continuous (CMS/[facility]) (Primary Dx) 11/28/2024 Refill [facility] [address] [place] [address] Shania Portillo RN Opioid type dependence, continuous (CMS/HCC) 11/28/2024 Travel 11/22/2024 Patient Outreach [facility] [address] [place] [address] Zi Wu Recovery Supports from Last 3 Months Immunizations Name Administration [...] Description 02/27/2025 9:00 AM EDT Clinical Support [facility] [address] [place] [address] Shania Portillo RN 03/06/2025 9:00 AM EDT Office Visit [facility] [address] [place] [address] Quintin Jordan MD [address] [place] [address] Health Maintenance Due Date Last Done Comments [...] General On track( 025 11:43 AM EDT) Shania Andrade, RN Note: Not using opioids; still using rach. Attendance has been a bit improved. Stayed to the end. 02/19/2025: He is with a assistant track and field coach looking for groups to attend on weekends. Procedures Procedure Name Priority Date/Time Associated Diagnosis Comments POCT KAJAL-14 URINE DRUG SCREEN Routine 02/19/2025 10:47 AM EDT Opioid type dependence, continuous (CMS/HCC) POCT KAJAL-14 URINE DRUG SCREEN Routine 02/13/2025 9:08 AM EDT Uncomplicated opioid dependence (CMS/HCC) POCT KAJAL-14 URINE DRUG SCREEN Routine 02/06/2025 9:34 AM EDT Uncomplicated opioid dependence (CMS/HCC) POCT KAJAL-14 URINE DRUG SCREEN Routine 01/30/2025 [...] Results * POCT KAJAL-14 Urine Drug Screen (02/19/2025 10:47 AM EDT) Only the most recent of13 resultswithin the time period is included. THC Positive Cocaine Screen, Urine Positive Opiate Screen, Urine Positive Methamphetamine Screen Urine Negative Amphetamine Screen, Urine Negative Benzodiazepines Screen, Urine Negative Barbiturate Screen, Urine Negative Methadone Screen, Urine Negative Buprenophine Screen, Urine Positive TCA, Urine Negative MDMA Urine Negative ng/mL Oxycodone Screen, Urine Negative Phencyclidine (PCP), Urine Negative Fentanyl, Urine Positive Urine Urine specimen obtained by clean catch procedure / Unknown 02/19/2025 10:47 AM EDT Crystal Patino MD POINT OF CARE TEST ENTER/KIMBERLI T ORDERABLES Final Result * Cologuard?? colon cancer screening (06/27/2024 4:45 PM EDT) Cologuard Result Negative Negative 07/11/20 24 1:14 AM EDT [facility] (CLIA #:[id number]) Comment: NEGATIVE TEST RESULT. A negative Cologuard [...] screened with both Cologuard and colonoscopy. (Nirmala Aldridge et al, N Engl J Med 2014;370(14):1286- 1297) The normal value (reference range) for this assay is negative. COLOGUARD RE-SCREENING RECOMMENDATION: Periodic colorectal cancer screening is an important part of preventive healthcare for asymptomatic individuals at average risk for colorectal cancer. ??Following a negative Cologuard result, the [place] [employer] Society and U.S. Multi-Society Task Force screening guidelines recommend a Cologuard re-screening interval of 3 years. References: [place] [employer] Guideline for Colorectal Cancer Screening: https://www.cancer.org/cancer/sucbi-ovtaaq-bbpxkj/vpjiwpmrc-nuvoupzkw-abojqrb/ac s-rec ommendations.html.; Douglas DK, Trey CR, Radha ButlerK, Colorectal Cancer Screening: Recommendations for Physicians and Patients from the U.S. Multi-Society Task Force on Colorectal Cancer Screening , Am J Gastroenterology 2017; 112:8148-5337. TEST DESCRIPTION: Composite algorithmic analysis of stool [...] (Nirmala Castellanos al, N Engl J Med 2014;370(14):1381-1006.) Cologuard may produce a false negative or false positive result (no colorectal cancer or precancerous polyp present at colonoscopy follow up). A negative Cologuard test result does not guarantee the absence of CRC or advanced adenoma (pre-cancer). The current Cologuard screening interval is every 3 years. ([place] Cancer Society and U.S. Multi-Society Task Force). Cologuard performance data in a 10,000 patient pivotal study using colonoscopy as the reference method can be accessed at the following location: www.[employer]/results. Additional description of the Cologuard test process, warnings and precautions can be found at www.[employer].com. Stool specimen (specimen) 06/27/2024 4:45 PM EDT 06/29/2024 2:31 PM EDT Lexy Odom MD LAB MOLECULAR KIM GNOSTICS ORDERABLES Final Result [facility] (CLIA #:[id number]) [place] [address], * Hepatitis C Viral RNA, Quantitative, Real-Time PCR (09/13/2023 9:56 AM EST) Pathologist [facility] Hepatitis C Viral Load <15 NOT DETECTED NOT DETECTED IU/mL [facility] HCV Log PCR <1.18 NOT DETECTED NOT DETECTED Log IU/mL [facility] Comment:This test was perfor med using Real-Time Polymerase ChainReaction.Reportable Range: 15 IU/mL to 100,000,000 IU/mL(1.18 Log IU/mL to 8.00 Log IU/mL).The analytical performance characteristics of thisassay have been determined by [employer].The modifications have not been cleared or approved bythe FDA. This assay has been validated pursuant to theCLIA regulations and is used for clinical purposes.For more information on this test, go to:http://education.[employer]faq/MIQ84k6(This link is being provided for informational/educational purposes only.)THIS TEST WAS PERFORMED AT:[email or web address] [place] [id number] ALVARADO MD Blood 09/13/2023 9:56 AM EST 09/13/2023 11:10 AM EST Lexy Odom MD LAB BLOOD ORDERAB LES Final Result [facility] [address] [place] [phone] * HIV Ab/Ag ([place] [facility]) (08/16/2023 12:55 PM EDT) [facility] HIV AB/AG Nonreactive Nonreactive [facility] Comment:HIV-1 p24 Ag and/or HIV-1/HIV-2 Ab not detected.A test result that is nonreactive does not exclude thepossibility of exposure to or infection with HIV-1 and/orHIV-2. Nonreactive results in this assay for individualswith prior exposure to HIV-1 and/or HIV-2 may be due toantigen and antibody levels that are below the limit ofdetection of this assay.The [employer] HIV Ag/Ab Combo assay result andsupplemental assay results should be interpreted inconjunction with the patient's clinical presentation,history and other laboratory results. If the results areinconsistent with clinical evidence, additional testing issuggested to confirm the result. 08/16/2023 12:5 5 PM EDT 08/16/2023 3:52 PM EDT us Lexy Odom MD LAB BLOOD ORDERAB LES Final Result Performing Organization Address [facility] [address]/[facility] Co de Phone Number [facility] [address] [place] [address] [phone] * Lipid Panel, Standard (08/16/2023 12:55 PM EDT) Triglycerides 45 <150 mg/dL [facility] Comment:Desirable Triglyceri de: less than 150 mg/dLBorderline High Triglyceride 150-199 mg/dLHigh Triglyceride: 200-499 mg/dLVery High Triglyceride: greater than or equal to 5OO mg/dL Cholesterol 116 <200 mg/dL [facility] Comment:Desirable Cholestero l: less than 200 mg/dLBorderline High Cholesterol: 200-239 mg/dLHigh Cholesterol: greater than 239 mg/dL LDL Cholesterol Calculated 57 <100 mg/dL [facility] Comment:Desirable LDL: less than 100 mg/dLNear Optimal/Above Optimal LDL: 110- 129 mg/dLBorderline High LDL: 130-159 mg/dLHigh LDL: 160-189 mg/dLVery High LDL: greater than or equal to 190 mg/dL HDL Cholesterol 50 >40 mg/dL [facility] Comment:Desirable HDL: great er than 40 mg/dL Note: This HDL assay may give artificially low results in patients with liver disease. Blood Venous blood specimen / Unknown 08/16/2023 12:55 PM EDT 08/16/2023 3:52 PM EDT us Lexy Odom MD LAB BLOOD ORDERAB LES Final Result Performing Organization Address City/[facility] [address]/ZIP Co de Phone Number [facility] [address] [place] [address] [phone] from Last 3 Months or Most Recently Relevant to Health Maintenance Insurance [place] [facility] MEDICAID STAND ADULT Care Teams Machining Manager Relationship Specialty Start Date End Date Lexy Iniguez MD [address] [place] [address] PCP - General Internal Medicine 09/15/23 Emanuel Calvert DDS [address] [place] [address] Dental Cinder Crusher Operator 09/19/24
--- OUTSIDE RECORDS SUMMARY | 2025-02-20 08:41 | XMS_ITS | Encounter Summary ---
Author Organization [employer] Address [address] [place] [address] [place] [address] Care Team Providers Care Threader Operator Name Role Phone Lexy Iniguez MD Primary Care Pro vider Emanuel Calvert DDJens Unavailable [phone] Reason for Visit * Reason Onset Date Comments Medication Question 05/23/2024 Encounter Details Date Type Department Care Team ([facility] st Contact Info) Description 05/23/2024 Telephone [facility] [address] [place] [address] Lexy Iniguez MD [address] [place] [address] Medication Question Social History Tobacco Use Types [...] 11:26 AM EDT Tc from Loren with [employer] calling in regards to pt's medication. Loren is requesting for medication pt was discharged with during hospital visit can be filled early before HDF appt. Mediation in question: Trazodone AmLODipine Melatonin Citalopram If any questions you can contact Loren at [phone]. documented in this encounter Plan of Treatment Upcoming Encounters Date Type Department Care Team (Late st Contact Info) Description 02/27/2025 9:00 AM EDT Clinical Support [address] [address] Shania Portillo, ABIGAIL 03/06/2025 9:00 AM EDT Office Visit [address] [address] Quintin Jordan MD [address] [place] [address] documented as of this encounter Visit Diagnoses Not on filedocumented in this encounter Additional Health Concerns Assessment Noted Time PHQ-9 Depression Total Score: 0 09/15/20 11:38 AM EST documented as of this encounter Care Teams Threader Operator Relationship Specialty Start Date End Date Lexy Iniguez MD [address] [place] [address] PCP - General Internal Medicine 09/15/23 Emanuel Calvert DDS [address] [place] [address] Dental Crimping Machine Operator For Metal 09/19/24 documented as of this encounter
--- OUTSIDE RECORDS SUMMARY | 2025-02-20 08:41 | XMS_ITS | Data Portability ---
Author Organization [place] [facility] Address [address] [place] [address] Care Team Providers Care Detective Name Role Phone [facility] Primary Care Provider Assessment Encounter Date Assessment [...] days. [facility]. We cannot always find the exact [...] in your condition between 8am-10pm, please call [facility] at [phone] to help navigate your care Time On [...] unit/mL-1 % ear solution 2020 021 INTERFACE [facility]-2 0180, [address], [place], [place], [id number], 11:34:51 ibuprofen 200 mg tablet 2020 021 [email or web address] Not available 17:45:32 Patient TargetsNo targets recorded. Patient InstructionsNo instructions recorded. Reason for Referral None Reported. Problems Name Problem SNOMED Code Status Onset Date Resolution Date Notes Provider Name and Address Organization Details Recorded Time Opioid abuse 4822697 Active 021 [employer] [address] [facility] [place], [address] , [place] [facility] 11/28/2020 11:17:47 Problem [...] /min 132 mm[Hg] 82 mm[Hg] Not Available [facility] 1 11:20:46 Social History Question Answer Notes LastModified by Organizat ion Details LastModified Time Tobacco Smoking Status Never Smoker [facility] [address] [place], [address], [place] [facility] 11/28/2020 11:20:49 Do You [...] Response Diabetes N Coronary Artery Disease N High Cholesterol N Pulmonary Embolism N Cancer N Hypertension Y Stroke N COPD N Depression Y Asthma N Kidney Disease N Past Encounters Encounter ID Performer Location Encounter Start Date Encounter Closed Date Diagnosis/Indication Diagnosis SNOMED-CT Code Diagnosis ICD10 Code Diagnosis Note [id number] [facility] [address] [place] [address] 11/28/2020 11:14:46 12/02/2020 02:08:17 Otitis externa of right ear [id number] 433307 H60.91 Health Concerns Section Related Observation LastModified by Organization Detai ls LastModified Time None Recorded Concern Status LastModified by Organization Details LastModified Time None Recorded Advance Directives Directive N: Payers Encounter Date Sequence Insurance Name Policy Number Policy Chavira Covered Member ID Chavira Member ID Guarantor Name 11/28/2020 1 [facility] (MEDICAID HMO) [id number] Wild Costello [id number] Wild Peterson Notes Date Note Type Note Provider Name and Address Organization Details Recorded Time 11/28/2020 text/html 45-year-old male with past medical history significant for depression, hypertension, anxiety, opiate use disorder, and chronic back pain, new to [facility] presents for complaints of right year pain. [...] nasal congestion, or sore throat. [facility] [place], [address], [place] [facility] 11/28/2020 11:55:04
--- OUTSIDE RECORDS SUMMARY | 2025-02-20 08:41 | XMS_ITS | Encounter Summary ---
Author Organization [employer] Address [address] [facility] 7t [place] [address] Care Team Providers Care Education Department Registrar Name Role Phone Lexy Iniguez MD Primary Care Pro vider Emanuel Calvert DDJens Unavailable [phone] Reason for Visit * Reason Comments OBAT F/U Encounter Details Date Type Department Care Team (Latest Contact Info) Description 02/19/2025 10:30 AM EDT Clinical Support [facility] [address] [place] [address] Shania Portillo RN Opioid type dependence, continuous [...] of this encounter Progress Notes * Shania Portillo, ABIGAIL - 02/19/2025 10:30 AM EDT LAST GBAT VISIT 02/13/2025 UTOX: POS BUP, RACH, THC, FEN Patient presents for Group-Based Opioid Treatment Reviewed the group goals, expectations and policies Consented to the group treatment options Actively participated in the group discussion with the topic of: Recognizing and Celebrating Your Progress Positive UTOX result reviewed Following staff present at the visit: Air Table Operator, Clinician, Team RN, Customer Sales Service Manager Would like to continue with current MAT Opportunities provided to address individual medical/medication/ concerns Discussed about other options for his MAT (Sublocade vs. Methadone); declines these options Follow up in 1 week THIS WEEK OBOT VISIT: 02/19/2025 UTOX: Bup, Fen, Rach, THC, Opi Wild asked to be seen a day early because he has an appointment tomorrow to discuss possible hernia removal surgery. He came today with a new monomer recovery supervisor Carl, who is helping Wild find groups to attend on weekends, which are his most difficult time to remain sober because he currently does not have friends who do not use. He said his goal is to get better and to him that means not using any drugs. He said that he likes to spend time by himself listening to music. RN encouraged Luis speak with the surgeon about coordinating meds for surgery with his suboxone. He picked up his refill today and will be due for his next refill on February 27. Follow up in 1 week in [facility] This information has been disclosed to you [...] Description 02/27/2025 9:00 AM EDT Clinical Support [address] [address] Shania Portillo RN 03/06/2025 9:00 AM EDT Office Visit [facility] [address] [place] [address] Quintin Jordan MD [address] [place] [address] documented as of this encounter Goals Goal Patient Goal Type Associated Problems Recent Progress Patient-Stated? Author Increase coping skills to promote long-term recovery and improve ability to perform daily activities General On track( 025 11:43 AM EDT) No Shania Portillo, RN Note: Not using opioids; still using rach. Attendance has been a bit improved. Stayed to the end. 02/19/2025: He is with a monomer recovery supervisor looking for groups to attend on weekends. documented as of this encounter Procedures Procedure Name Priority Date/Time Associated Diagnosis Comments POCT KAJAL-14 URINE DRUG SCREEN Routine 02/19/2025 10:47 AM EDT Opioid type dependence, continuous (CMS/HCC) documented in this encounter Results * POCT KAJAL-14 Urine Drug Screen (02/19/2025 10:47 AM EDT) THC Positive Cocaine Screen, Urine [...] CARE TEST ENTER/KIMBERLI T ORDERABLES Final Result documented in this encounter Visit Diagnoses Diagnosis Opioid type dependence, continuous (CMS/HCC)- Primary Opioid type dependence, continuous documented in this encounter Additional Health Concerns Assessment Noted Time PHQ-9 Depression Total Score: 7 05/29/20 24 11:39 AM EDT documented as of this encounter Care Teams Education Department Registrar Relationship Specialty Start Date End Date Lexy Iniguez MD [address] [place] [id number] PCP - General Internal Medicine 09/15/23 Emanuel Calvert DDS [address] [place] [address] Dental Jewel Stringer 09/19/24 documented as of this encounter
--- OUTSIDE RECORDS SUMMARY | 2025-02-20 08:41 | XMS_ITS | Encounter Summary ---
Author Organization [employer] Address [address] [place] [address] [place] [address] Care Team Providers Care Credit Card Specialist Name Role Phone Lexy Iniguez MD Primary Care Pro vider Emanuel Calvert DDJens Unavailable [phone] Reason for Visit * Reason Onset Date Comments Hospital Follow-up 05/15/2024 Encounter Details Date Type Department Care Team ([facility] st Contact Info) Description 05/15/2024 Telephone [facility] MED[facility]INE [address] [place] [address] Lexy Iniguez MD [address] [place], [place] [phone] Hospital Follow-up Social History Tobacco Use Types [...] Description 02/27/2025 9:00 AM EDT Clinical Support [facility] [address] [place] [phone] Shania Portlilo RN 03/06/2025 9:00 AM EDT Office Visit [facility] [address] [place] [phone] Quintin Jordan MD [address] [place] [phone] documented as of this encounter Visit Diagnoses Not on filedocumented in this encounter Additional Health Concerns Assessment Noted Time PHQ-9 Depression Total Score: 0 09/15/20 11:38 AM EST documented as of this encounter Care Teams Credit Card Specialist Relationship Specialty Start Date End Date Lexy Iniguez MD [address] [place], [place] [phone] PCP - General Internal Medicine 09/15/23 Emanuel Calvert DDS [address] [place] [phone] Dental Hris Administrator 09/19/24 documented as of this encounter
== END ==
LOC: HO.CARD 08:27
PROVIDERS: PCP Student in an Organized Health Care Education/Training Program; Visit Provider Nurse Practitioner Family
DX: Z01.810 Encounter for preprocedural cardiovascular examination (principal); I10 Essential (primary) hypertension; R94.31 Abnormal electrocardiogram [ECG] [EKG]
CPT/HCPCS: 93017

== ENCOUNTER → 2025-02-20 08:30 | Outpatient (BNV) | payer MEDICAID, SELFPAY | PROVIDERS: PCP Student in an Organized Health Care Education/Training Program | DX: R06.02 Shortness of breath (principal) | CPT/HCPCS: 93016; 93018 ==

== ENCOUNTER 2025-03-01 03:25 | Inpatient (IN) | payer OTHER, SELFPAY ==
--- NOTE | 2025-03-01 | ECG_ITS ---
Test Reason : R/O PROLONGED QT Blood Pressure : */* mmHG Vent. Rate : 48 BPM Atrial Rate : 48 BPM P-R Int : 146 ms QRS Dur : 84 ms QT Int : 508 ms P-R-T Axes : 54 37 2 degrees QTcB Int : 453 ms Sinus bradycardia with sinus arrhythmia T wave abnormality, consider anterolateral ischemia Abnormal ECG When compared with ECG of 15-Aug-2024 09:40, Nonspecific T wave abnormality has replaced inverted T waves in Inferior leads T wave inversion more evident in Anterior leads QT has lengthened Referred By: Renny Ibarra Electronically Signed By: LORIN FOSTER
[2025-03-01 03:30] VITALS: BP 173/113; PULSE 90; RESP 18; TEMP 36.9; O2SAT 99; BMI 28.0
--- OUTSIDE RECORDS SUMMARY | 2025-03-01 03:41 | XMS_ITS | Encounter Summary ---
Author Organization [employer] Address [address] [facility] 7t [place] [address] Care Team Providers Care Cart Driver Name Role Phone Lexy Iniguez MD Primary Care Pro vider Emanuel Calvert DDJens Unavailable [phone] Reason for Visit * Reason Onset Date Comments Med Refill 02/26/2025 Encounter Details Date Type Department Care Team (Late st Contact Info) Description 02/26/2025 Refill [facility] [address] [place] [address] Shania Portillo, ABIGAIL Opioid type dependence, continuous [...] Care Team (Late st Contact Info) Description 03/06/2025 9:00 AM EDT Office Visit [facility] [address] [place] [address] Quintin Jordan MD [address] [place] [address] documented as of this encounter Goals Goal Patient Goal Type Associated Problems Recent Progress Patient-Stated? Author Increase coping skills to promote long-term recovery and improve ability to perform daily activities General On track( 025 11:43 AM EDT) No Shania Portillo, RN Note: Not using opioids; still using rach. Attendance has been a bit improved. Stayed to the end. 02/19/2025: He is with a manager recovery looking for groups to attend on weekends. documented as of this encounter Visit Diagnoses Diagnosis Opioid type dependence, continuous (CMS/HCC) Opioid type dependence, continuous documented in this encounter Additional Health Concerns Assessment Noted Time PHQ-9 Depression Total Score: 7 05/29/20 24 11:39 AM EDT documented as of this encounter Care Teams Cart Driver Relationship Specialty Start Date End Date Lexy Iniguez MD 230 [place], [place] [phone] PCP - General Internal Medicine 09/15/23 Emanuel Calvert DDS [address] [place], [place] [phone] Dental Special Education Teacher 09/19/24 documented as of this encounter
--- OUTSIDE RECORDS SUMMARY | 2025-03-01 03:41 | XMS_ITS | Data Portability ---
Author Organization [place] [facility] Address [address] [place] [phone] Care Team Providers Care Television Production Technician Name Role Phone [facility] Primary Care Provider Assessment Encounter Date Assessment [...] days. [facility]. We cannot always find the [...] in your condition between 8am-10pm, please call [facility] at [phone] to help navigate your care Time On [...] unit/mL-1 % ear solution 2020 021 INTERFACE [facility]-2 0180, [address], [place], [place], [id number], 11:34:51 ibuprofen 200 mg tablet 2020 021 [email or web address] Not available 17:45:32 Patient TargetsNo targets recorded. Patient InstructionsNo instructions recorded. Reason for Referral None Reported. Problems Name Problem SNOMED Code Status Onset Date Resolution Date Notes Provider Name and Address Organization Details Recorded Time Opioid abuse 5479498 Active 021 [employer] [address] [place], [phone] , [place] [facility] 11/28/2020 11:17:47 Problem [...] /min 132 mm[Hg] 82 mm[Hg] Not Available [facility] 1 11:20:46 Social History Question Answer Notes LastModified by Organizat ion Details LastModified Time Tobacco Smoking Status Never Smoker [facility] [facility] [address] [place], [address], [place] [facility] 11/28/2020 11:20:49 Do You Have An Advance Directive? No kandy Information not available 11/28/2020 Excessive Alcohol Or Drug Use Yes Opiate [email or web address] Information not available 11/28/2020 Do You Or Have You Ever Used Smokeless Tobacco? Former Smokeless Tobacco User Information not available 11/28/2020 How Many Years [...] available 2020 11:20:21 Medical History Condition Response Coronary Artery Disease N COPD N Depression Y Diabetes N Cancer N Stroke N Asthma N High Cholesterol N Pulmonary Embolism N Hypertension Y Kidney Disease N Past Encounters Encounter ID Performer Location Encounter Start Date Encounter Closed Date Diagnosis/Indication Diagnosis SNOMED-CT Code Diagnosis ICD10 Code Diagnosis Note [id number] [facility] [address] [place] [address] 11/28/2020 11:14:46 12/02/2020 02:08:17 Otitis externa of right ear [id number] 250082 H60.91 Health Concerns Section Related Observation LastModified by Organization Detai ls LastModified Time None Recorded Concern Status LastModified by Organization Details LastModified Time None Recorded Advance Directives Directive N: Payers Encounter Date Sequence Insurance Name Policy Number Policy Chavira Covered Member ID Chavira Member ID Guarantor Name 11/28/2020 1 [facility] (MEDICAID HMO) [id number] Wild Costello [id number] Wild Peterson Notes Date Note Type Note Provider Name and Address Organization Details Recorded Time 11/28/2020 text/html 45-year-old male with past medical history significant for depression, hypertension, anxiety, opiate use disorder, and chronic back pain, new to [facility] presents for complaints of right year pain. [...] nasal congestion, or sore throat. [employer] [facility] [place], [address], [place] [facility] 11/28/2020 11:55:04
--- OUTSIDE RECORDS SUMMARY | 2025-03-01 03:41 | XMS_ITS | Encounter Summary ---
Author Organization [employer] Address [address] [place] [address] [place] [address] Care Team Providers Care Meat Sales And Storage Manager Name Role Phone Lexy Iniguez MD Primary Care Pro vider Emanuel Calvert DDJens Unavailable [phone] Reason for Visit * Reason Onset Date Comments Hospital Follow-up 05/15/2024 Encounter Details Date Type Department Care Team ([facility] st Contact Info) Description 05/15/2024 Telephone [facility] MEDICINE [address] [place] [address] Lexy Iniguez MD [address] [place] [address] Hospital Follow-up Social History Tobacco Use Types [...] Description 03/06/2025 9:00 AM EDT Office Visit [facility] [address] [place] [address] Quintin Jordan MD 230 [place] [address] documented as of this encounter Visit Diagnoses Not on filedocumented in this encounter Additional Health Concerns Assessment Noted Time PHQ-9 Depression Total Score: 0 09/15/20 23 11:38 AM EST documented as of this encounter Care Teams Meat Sales And Storage Manager Relationship Specialty Start Date End Date Lexy Iniguez MD [address] [place], [place] [phone] PCP - General Internal Medicine 09/15/23 Emanuel Calvert DDS [address] [place], [place] [phone] Dental Utility Specialist 09/19/24 documented as of this encounter
--- OUTSIDE RECORDS SUMMARY | 2025-03-01 03:41 | XMS_ITS | Encounter Summary ---
Author Organization [employer] Address [address] [facility] 7t [place] [address] Care Team Providers Care Sprinkling System Irrigator Name Role Phone Lexy Iniguez MD Primary Care Pro vider Emanuel Calvert DDJens Unavailable [phone] Encounter Details Date Type Department Care Team (Latest Contact Info) Description 02/27/2025 Travel Social History Tobacco Use Types Packs/Day [...] Description 03/06/2025 9:00 AM EDT Office Visit [facility] MEDICINE [address] [place] [phone] Quintin Jordan MD [address] [place] [phone] documented as of this encounter Goals Goal Patient Goal Type Associated Problems Recent Progress Patient-Stated? Author Increase coping skills to promote long-term recovery and improve ability to perform daily activities General On track( 025 11:43 AM EDT) Shania Andrade, RN Note: Not using opioids; still using rach. Attendance has been a bit improved. Stayed to the end. 02/19/2025: He is with a development coach looking for groups to attend on weekends. documented as of this encounter Visit Diagnoses Not on filedocumented in this encounter Additional Health Concerns Assessment Noted Time PHQ-9 Depression Total Score: 7 05/29/20 24 11:39 AM EDT documented as of this encounter Care Teams Sprinkling System Irrigator Relationship Specialty Start Date End Date Lexy Iniguez MD [address] [place] [phone] PCP - General Internal Medicine 09/15/23 Emanuel Calvert DDS [address] [place] [phone] Dental Mail Clerk Bills 09/19/24 documented as of this encounter
--- OUTSIDE RECORDS SUMMARY | 2025-03-01 03:41 | XMS_ITS | Encounter Summary ---
Author Organization [employer] Address 75 [facility] 7t [place] [address] Care Team Providers Care Machine Packaging Technician Name Role Phone Lexy Iniguez MD Primary Care Pro vider Emanuel Calvert DDJens Unavailable [phone] Reason for Visit * Reason Comments GBAT Encounter Details Date Type Department Care Team (Latest Contact Info) Description 02/27/2025 9:00 AM EDT Clinical Support [facility] MEDICINE [address] [place] [address] Shania Portillo, ABIGAIL Opioid type dependence, continuous [...] Description 03/06/2025 9:00 AM EDT Office Visit [facility] MEDICINE [address] [place] [address] Quintin Jordan MD [address] [place] [address] documented as of this encounter Goals Goal Patient Goal Type Associated Problems Recent Progress Patient-Stated? Author Increase coping skills to promote long-term recovery and improve ability to perform daily activities General On track( 025 11:43 AM EDT) No Shania Portillo, RN Note: Not using opioids; still using rach. Attendance has been a bit improved. Stayed to the end. 02/19/2025: He is with a recovery assistant looking for groups to attend on weekends. documented as of this encounter Procedures Procedure Name Priority Date/Time Associated Diagnosis Comments POCT KAJAL-14 URINE DRUG SCREEN Routine 02/27/2025 9:20 AM EDT Opioid type dependence, continuous (CMS/HCC) documented in this encounter Results * POCT KAJAL-14 Urine Drug Screen (02/27/2025 9:20 AM EDT) THC Positive Cocaine Screen, Urine [...] obtained by clean catch procedure / Unknown 02/27/2025 9:20 AM EDT Ramya Jett MD POINT OF CARE TEST ENTER/EDIT OR DERABLES Final Result documented in this encounter Visit Diagnoses Diagnosis Opioid type dependence, continuous (CMS/HCC)- Primary Opioid type dependence, continuous documented in this encounter Additional Health Concerns Assessment Noted Time PHQ-9 Depression Total Score: 7 05/29/20 11:39 AM EDT documented as of this encounter Care Teams Machine Packaging Technician Relationship Specialty Start Date End Date Lexy Iniguez MD [address] [place] [address] PCP - General Internal Medicine 09/15/23 Emanuel Calvert DDS [address] [place] [address] Dental Manager Pet 09/19/24 documented as of this encounter
--- OUTSIDE RECORDS SUMMARY | 2025-03-01 03:41 | XMS_ITS | Encounter Summary ---
Author Organization [employer] Address [address] [place] [address] [place] [address] Care Team Providers Care Cell Tuber Hand Name Role Phone Lexy Iniguez MD Primary Care Pro vider Emanuel Calvert DDJens Unavailable [phone] Reason for Visit * Reason Onset Date Comments Medication Question 05/23/2024 Encounter Details Date Type Department Care Team ([facility] st Contact Info) Description 05/23/2024 Telephone [facility]ICINE [address] [place] [address] Lexy Iniguez MD [address] [place] [address] Medication Question Social History Tobacco Use Types [...] 11:26 AM EDT Tc from Loren with [employer] calling in regards to pt's medication. Lroen is requesting for medication pt was discharged with during hospital visit can be filled early before HDF appt. Mediation in question: Trazodone AmLODipine Melatonin Citalopram If any questions you can contact Loren at [phone]. documented in this encounter Plan of Treatment Upcoming Encounters Date Type Department Care Team (Late st Contact Info) Description 03/06/2025 9:00 AM EDT Office Visit [facility]INE [address] [place] [address] Quintin Jordan MD 230 [place], [place] [phone] documented as of this encounter Visit Diagnoses Not on filedocumented in this encounter Additional Health Concerns Assessment Noted Time PHQ-9 Depression Total Score: 0 09/15/20 11:38 AM EST documented as of this encounter Care Teams Cell Tuber Hand Relationship Specialty Start Date End Date Lexy Iniguez MD [address] [place] [address] [phone] PCP - General Internal Medicine 09/15/23 Emanuel Calvert DDS [address] [place] [address] [phone] Dental Electronic Publisher 09/19/24 documented as of this encounter
[2025-03-01 04:05] LABS: Basophils Absolute Auto 0.1 X10*3/uL (0.0-0.2); Basophils Percent Auto 0.7 % (0-2); Eosinophils Percent Auto 0.5 % (0-4); Hematocrit 40.9 % (42.0-52.0); Hemoglobin 14.1 g/dl (14.0-18.0); Imm Gran Abs Auto 0.02 X10*3/uL (0.00-0.03); Imm Gran Pct Auto 0.3 % (0.0-0.4); Lymphocytes Absolute Auto 1.7 X10*3/uL (1.2-4.9); Lymphocytes Percent Auto 22.4 % (20-40); MANUAL DIFF FLAG NO; Mean Corpuscular HGB Conc 34.5 g/dl (31.0-36.0); Mean Corpuscular Hemoglobin 29.8 pg (27.0-33.0); Mean Corpuscular Volume 86.5 fL (80.0-98.0); Mean Platelet Volume 10.4 fL (9.4-12.4); Monocytes Absolute Auto 0.5 X10*3/uL (0.1-1.2); Monocytes Percent Auto 6.9 % (2-11); Neutrophils Absolute Auto 5.3 x10*3/uL (2.0-8.3); Neutrophils Percent Auto 69.2 % (45-73); Platelet Count 254 X10*3/uL (160-400); Red Blood Count 4.73 X10*6/uL (4.60-5.80); White Blood Count 7.6 X10*3/uL (4.8-10.8)
[2025-03-01 04:20] LABS: Ethanol < 10 mg/dL
[2025-03-01 04:25] LABS: Alanine Aminotransferase 19 U/L (0-40); Albumin Level 4.5 g/dL (3.5-5.0); Alkaline Phosphatase 90 U/L (39-117); Anion Gap 15 (12-20); Aspartate Amino Transferase 31 U/L (5-37); Bilirubin Total 0.6 mg/dL (0.0-1.0); Blood Urea Nitrogen 22 mg/dL (9-16); Calcium 9.3 mg/dL (8.4-10.2); Carbon Dioxide 22 mmol/L (22-29); Chloride 105 mmol/L (96-108); Creatinine Clr Calc Pharmacy 100.9; Estimated Glomerular Filt Rate > 60; Glucose Random 102 mg/dL (60-115); Potassium 3.9 mmol/L (3.3-5.1); Sodium 138 mmol/L (135-145); Total Protein 7.4 g/dL (6.5-8.0)
--- NOTE | 2025-03-01 04:27 | ED.PSYCH ---
HPI - Psych General Chief Complaint: ETOH/Substance Use Stated Complaint: Needs Help Time Seen by Provider: 03/01/25 04:27 Source: patient Mode of arrival: ambulatory Limitations: no limitations History of Present Illness ED Provider: HPI Narrative: Patient's history of polysubstance abuse comes here for increased depression anxiety hallucinations asking for help with his substance abuse uses heroin cocaine and marijuana and also take Suboxone denies any SI or HI to the staff but when I spoke with the patient's patient said that his mind is not stable too much going on in his sprain feels like killing himself sometimes and looking for some help with his drugs and mind, patient is homeless Related Data Home Medications ?Medication ?Instructions ?Recorded ?Confirmed escitalopram oxalate 10 mg tablet 20 mg PO DAILY depressive disorder 06/12/24 03/01/25 nicotine (polacrilex) 4 mg gum 4 mg PO Q2H PRN Nicotine Cravings 08/15/24 03/01/25 nicotine 21 mg/24 hr daily 1 patch topical DAILY 08/15/24 03/01/25 transdermal patch amlodipine 5 mg tablet 5 mg PO DAILY 01/21/25 03/01/25 hydroxyzine pamoate 50 mg capsule 50 mg PO Q4H PRN anxiety 01/21/25 03/01/25 buprenorphine 8 mg-naloxone 2 mg 1 film sublingual TID 03/01/25 03/01/25 sublingual film (Suboxone) gabapentin 100 mg capsule 100 mg PO TID depressive disorder 03/01/25 03/01/25 Allergies Allergy/AdvReac Type Severity Reaction Status Date / Time No Known Allergies Allergy Verified 03/01/25 03:34 Review of Systems Review of Systems: Yes all other systems are reviewed and are negative PMFSH Past Medical History Medical History Elevated LFTs Hx of hepatitis C Smoker Anxiety OCD (obsessive compulsive disorder) Lumbar back pain HTN (hypertension) Depression Active substance abuse Surgical History No pertinent past surgical history Social History Social History Are you a primary critical care nurse practitioner to a significant other at home: No Do you presently have visiting nurse or other home services: No Unable to assess alcohol history related to: Unable to respond Alcohol intake: unknown Patient Tobacco Use Status: Current everyday Tobacco user Tobacco use type: Cigarette Cigarettes Per Day: 4 Years Smoked: 10 Second Hand Smoke Exposure: No Substance Use Type: Heroin Advance Directives: No Advance Directives Information Provided: No Do you have a plan to hurt others: No Plan Physical Exam Vital Signs: Vital Signs: Last Vital Signs Temp 97.2 F 03/01/25 13:08 Pulse 48 L 03/01/25 13:08 Resp 14 03/01/25 13:08 BP 139/83 03/01/25 13:08 Pulse Ox 98 03/01/25 13:08 O2 Del Method Room Air 03/01/25 03:30 BMI result Body Mass Index 28.0 Appearance: Alert. Oriented X3. No acute distress. Eyes: PERRLA, No Nystagmus ENT: Pharynx normal. Oral Mucosa moist Neck: Normal inspection. Neck supple. CVS: Normal heart rate and rhythm. Pulses normal. Respiratory: No respiratory distress. Equal air entry bilateral, no wheezing/rales/rhonchi Abdomen: Soft and nontender. Bowel sounds are present, no mass palpable, no CVA tenderness Skin: Skin warm and dry. Normal skin color. Normal skin turgor. Extremities: No lower extremity edema. No calf tenderness psych: Anxious having thoughts of killing himself with no plan no delusion or hallucination Neuro: Oriented X 3. No motor deficit. No sensory deficit.No cerebellar signs , cranial nerves II-XII intact Course Course Course Narrative: Time: 07:21 Date: 03/01/25 Provider: Enedina Jenkins DO Patient in physician observation for psychiatric evaluation.? No acute events reported overnight. No current complaints. VS stable.? pending CARE team evaluation. Will continue to monitor. Reevaluation(s) Reevaluation #1: Time: 14:19 Date: 03/01/25 Provider: Enedina Jenkins DO Physician observation ended at 219pm. Patient to be admitted as inpatient to psychiatry. Medications Administered Generic Name Dose Route Start Last Admin Trade Name Freq PRN Reason Stop Dose Admin Amlodipine Besylate 5 mg 03/01/25 10:00 03/01/25 10:58 Amlodipine Besylate 5 Mg Tablet PO 5 mg DAILY ROXANA Administration Protocol Buprenorphine/Naloxone 1 film 03/01/25 10:00 03/01/25 10:59 Buprenorphine/Naloxone 8/2 Mg Film SUBLINGUAL 1 film TID ROXANA Administration Escitalopram Oxalate 20 mg 03/01/25 10:00 03/01/25 10:58 Escitalopram Oxalate 20 Mg Tablet PO 20 mg DAILY ROXAAN Administration Gabapentin 100 mg 03/01/25 10:00 03/01/25 10:59 Gabapentin 100 Mg Capsule PO 100 mg TID ROXANA Administration Nicotine 21 mg 03/01/25 10:00 03/01/25 10:59 Nicotine 21 Mg Patch.Td24 TRANSDERMA 21 mg DAILY ROXANA Administration Discontinued Medications Generic Name Dose Route Start Last Admin Trade Name Garrett PRN Reason Stop Dose Admin Acetaminophen 650 mg 03/01/25 12:44 03/01/25 13:10 Acetaminophen 325 Mg Tablet PO 03/01/25 12:45 650 mg ONCE ONE Administration Medical Decision Making Medical Decision Making MDM Narrative: Patient with polysubstance abuse with increased anxiety and depression feels suicidal sometimes with no plans will get care team involved Lab Data MDM Lab Attestation statement: I reviewed the patient's lab results. 03/01/25 04:00 03/01/25 04:00 Labs: Lab Results 03/01/25 03/01/25 03/01/25 Range/Units 04:00 04: 11:09 WBC 7.6 (4.8-10.8) X10*3/uL RBC 4.73 (4.60-5.80) X10*6/uL Hgb 14.1 (14.0-18.0) g/dl Hct 40.9 L (42.0-52.0) % MCV 86.5 (80.0-98.0) fL MCH 29.8 (27.0-33.0) pg MCHC 34.5 (31.0-36.0) g/dl RDW 12.0 (11.0-16.0) % Plt Count 254 (160-400) X10*3/uL MPV 10.4 (9.4-12.4) fL Immature Gran % (Auto) 0.3 (0.0-0.4) % Neut % (Auto) 69.2 (45-73) % Lymph % (Auto) 22.4 (20-40) % [place] % (Auto) 6.9 (2-11) % Eos % (Auto) 0.5 (0-4) % Baso % (Auto) 0.7 (0-2) % Lymph # (Auto) 1.7 (1.2-4.9) X10*3/uL [place] # (Auto) 0.5 (0.1-1.2) X10*3/uL Eos # (Auto) 0.0 (0.0-0.4) X10*3/uL Baso # (Auto) 0.1 (0.0-0.2) X10*3/uL Abs Immat Gran (auto) 0.02 (0.00-0.03) X10*3/uL Absolute Neuts (auto) 5.3 (2.0-8.3) x10*3/uL Absolute Nucleated RBC 0.000 (0.0-0.012) X10*3/uL Nucleated RBC % (auto) 0.0 (0.0-0.2) /100WBC Sodium 138 (135-145) mmol/L Potassium 3.9 (3.3-5.1) mmol/L Chloride 105 (96-108) mmol/L Carbon Dioxide 22 (22-29) mmol/L Anion Gap 15 (12-20) BUN 22 H (9-16) mg/dL Creatinine 0.97 (0.5-1.4) mg/dL Estim Creat Clear Calc 100.9 Estimated GFR > 60 Random Glucose 102 (60-115) mg/dL Calcium 9.3 (8.4-10.2) mg/dL Total Bilirubin 0.6 (0.0-1.0) mg/dL AST 31 (5-37) U/L ALT 19 (0-40) U/L Alkaline Phosphatase 90 (39-117) U/L Total Protein 7.4 (6.5-8.0) g/dL Albumin 4.5 (3.5-5.0) g/dL Urine Color Yellow Urine Appearance Clear Urine pH 5.5 (5.0-9.0) Ur Specific [facility] 1.025 (1.005-1.025) Urine Protein Negative (Neg-Trace) mg/dL Urine Glucose (UA) Negative (Negative) mg/dL Urine Ketones 15 (Negative) mg/dL Urine Blood Negative (Negative) Urine Nitrite Negative (Negative) Ur Leukocyte Esterase Negative (Negative) Urine Opiates Screen POSITIVE H (Not Detect) Ur Buprenorphine Scrn Positive H (Not Detect) ng/mL Ur Oxycodone Screen Not Detected (Not Detect) ng/mL Urine Methadone Screen Not Detected (Not Detect) ng/mL Urine Fentanyl Screen POSITIVE H (Not Detect) Ur Barbiturates Screen Not Detected (Not Detect) Ur Phencyclidine Scrn Not Detected (Not Detect) Ur Amphetamines Screen Not Detected (Not Detect) U Benzodiazepines Scrn Not Detected (Not Detect) Urine Cocaine Screen POSITIVE H (Not Detect) U Marijuana (THC) Screen POSITIVE H (Not Detect) Ethyl Alcohol < 10 mg/dL Independent Interpretation I performed an independent interpretation of an: EKG Interpretation: Rate: 48 Rhythm: sinus bradycardia [place]: normal Normal P waves. Normal SARAH. Normal QRS complex. ST T wave : inverted t waves V3-V6, no KEVIN qTC: 453 prior studies: no change 2023 The study has been interpreted contemporaneously by me. . Discharge Plan Discharge Clinical Impression: Polysubstance abuse, Anxiety, Depression with suicidal ideation Patient Disposition: Admitted As Inpatient
--- NOTE | 2025-03-01 04:47 | PC.NURSE ---
patient appears restless in his room
[2025-03-01 04:54] LABS: Amphetamine Screen Urine Not Detected (Not Detect); Barbiturates, Urine Not Detected (Not Detect); Benzodiazepines Screen Urine Not Detected (Not Detect); Buprenorphine Scr Positive (Not Detect); Cannabinoid Screen Urine POSITIVE (Not Detect); Cocaine Screen Urine POSITIVE (Not Detect); Fentanyl, urine POSITIVE (Not Detect); Methadone Screen, Urine Not Detected (Not Detect); Opiate Screen Urine POSITIVE (Not Detect); Oxycodone Screen Urine Not Detected (Not Detect); Phencyclidine Screen Urine Not Detected (Not Detect)
--- NOTE | 2025-03-01 04:59 | PC.NURSE ---
patient now appears to be resting in bed
--- NOTE | 2025-03-01 05:25 | PC.NURSE ---
patient now seated on bed in room.
--- NOTE | 2025-03-01 09:25 | MHC.CARE ---
Pt will be a dual dx bedsearch.
[2025-03-01] MEDS: Escitalopram Oxalate 20 MG TABLET PO (10:58)
[2025-03-01] MEDS: amLODIPine Besylate 5 MG TABLET PO (10:58)
[2025-03-01] MEDS: Buprenorphine/Naloxone 8/2 mg FILM 1 FILM SUBLINGUAL ×3 (10:59→22:04)
[2025-03-01] MEDS: Gabapentin 100 MG CAPSULE PO ×3 (10:59→22:04)
[2025-03-01] MEDS: Nicotine 21 MG PATCH.TD24 TRANSDERMA (10:59)
[2025-03-01 11:45] LABS: Appearance Urine Clear; Color Urine Yellow; Glucose Urine UA Negative (Negative); Leukocyte Esterase Urine Negative (Negative); Nitrite Urine Negative (Negative); PH 5.5 (5.0-9.0); Specific Gravity - Urine 1.025 (1.005-1.025); Urine Blood Negative (Negative); Urine Ketones 15 mg/dL (Negative); Urine Protein Negative (Neg-Trace)
[2025-03-01 13:08] VITALS: BP 139/83; PULSE 48; RESP 14; TEMP 36.2; O2SAT 98
[2025-03-01] MEDS: Acetaminophen 325 MG TABLET 650 MG PO (13:10)
[2025-03-01 14:54] VITALS: BMI 26.3
[2025-03-01 14:55] VITALS: BP 152/90; PULSE 52; RESP 16; TEMP 36.5; O2SAT 99
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
--- NOTE | 2025-03-01 17:06 | PC.ADMIT ---
This is the 1st admission for this 49 y.o.male to [facility] at [facility]. Arrived on unit at 1500 on [address] and placed on 15 min safety checks. Referred by [facility] Care Team with Dx:Unspecified Psychosis, Opioid Use D/O Severe, Cocaine Use D/O Severe, Unspecified Depressive D/O. Tox screen positive for opiates, Buprenorphine, Fentanyl, Cocaine, Marijuana(THC); etoh <10. Acknowledges use all he is positive for, denies use of etoh. States he goes to [facility] for Suboxone. Medical issues reported by pt: right inguinal hernia with pending surgery at [facility]. Precipitating events to admission: Self presented to [facility] ED with c/o increased depression, anxiety, hallucinations, and requesting treatment for substance use. Denied SI during assessment, reported sometimes experiencing SI. Cooperative during admission assessment upon arrival to unit. Hx past substance hospitalizations. States he attends an AA/NA group at [facility] every Tue. States he checks in weekly on with a special officer, Ryan, in [place] for trespassing or something like that. Reports recent stressor as [id number] passing away on 02/25/25 which triggered increased substance use as it takes the pain away. Denies SI/HI, denies AH/VH today. Reports he sometimes sees shadows, and last time experienced AH was 3-4 days ago. Sttated, I think it is the devil. Reports noncompliance with meds x2 months. Hopes to get in to treatment program out of this area. Meds reconciled in ED, admission orders received from Ramandeep Meredith prescriber. Conditional Voluntary signed after meeting with prescriber.
[2025-03-01 20:25] VITALS: BP 164/90; PULSE 53; RESP 16; TEMP 36.6; O2SAT 98
[2025-03-01] MEDS: Melatonin 3 MG TABLET PO (22:06)
[2025-03-02] MEDS: hydrOXYzine HCL 50 MG TABLET PO ×2 (00:42→20:01)
[2025-03-02 07:42] VITALS: BP 132/84; PULSE 48; RESP 16; TEMP 36.6; O2SAT 98
[2025-03-02 08:29] LABS: Alanine Aminotransferase 21 U/L (0-40); Albumin Level 4.1 g/dL (3.5-5.0); Alkaline Phosphatase 91 U/L (39-117); Aspartate Amino Transferase 20 U/L (5-37); Bilirubin Total 0.2 mg/dL (0.0-1.0); Blood Urea Nitrogen 14 mg/dL (9-16); Calcium 9.5 mg/dL (8.4-10.2); Cholesterol 116 mg/dL (<200); Estimated Glomerular Filt Rate > 60; Glucose Random 108 mg/dL (60-115); HDL Cholesterol 47 mg/dL (>40); LDL Cholesterol Calculated 53 mg/dL (<100); Total Protein 6.7 g/dL (6.5-8.0); Triglycerides 84 mg/dL (<150)
[2025-03-02 08:46] LABS: Estimated Average Glucose 111 mg/dL; Hemoglobin A1C 140.0557 umol/L; Hemoglobin A1c % 5.5 % (<6.0)
[2025-03-02 08:53] LABS: Anion Gap 13 (12-20); Carbon Dioxide 24 mmol/L (22-29); Chloride 107 mmol/L (96-108); Potassium 4.2 mmol/L (3.3-5.1); Sodium 140 mmol/L (135-145)
[2025-03-02] MEDS: Gabapentin 100 MG CAPSULE PO ×3 (08:59→22:02)
[2025-03-02] MEDS: Escitalopram Oxalate 20 MG TABLET PO (08:59)
[2025-03-02] MEDS: Buprenorphine/Naloxone 8/2 mg FILM 1 FILM SUBLINGUAL ×3 (09:00→22:02)
[2025-03-02 09:06] VITALS: BP 124/82; PULSE 52
[2025-03-02] MEDS: amLODIPine Besylate 5 MG TABLET PO (09:08)
[2025-03-02] MEDS: Nicotine Polacrilex 2 MG GUM 4 MG BUCCAL ×4 (11:47→20:01)
--- NOTE | 2025-03-02 13:42 | P.PNPSI_ITS ---
Subjective Subjective Date of Service: 03/02/25 Reason For Visit: crisis Interim History: Patient seen and discussed. Patient reports feeling OK. Reports anxiety. He was upset because his roommate was standing over him at night and roommate was loud with staff last night and patient couldn't sleep well. Was offered a room change. Reports anxiety. Tolerating medications. Denies SI today. Engaged in the milieu. Review of Systems Review of Systems Yes all other systems are reviewed and are negative Mental Status Exam Mental Status Exam Narrative: Pt is alert and oriented; behavior is cooperative and calm; dressed in casual attire; mood is described as depressed and anxious ; eye contact appropriate; Speech is normal rate, volume and not pressured; thought process is organized and goal directed; Thought content is on tx; otherwise pertinent to relevant topics and without any delusional content, paranoid ideations or grandiosity; denies SI/HI/VH/AH. Diagnostics Vital Signs (24Hr): Vital Signs - 24 hr 03/01/25 14:55 03/01/25 20:25 03/02/25 07:42 Temperature 97.7 F 97.8 F 97.8 F Pulse Rate 52 53 48 L Respiratory Rate 16 16 16 Blood Pressure 152/90 H 164/90 H 132/84 Pulse Oximetry 99 98 98 Oxygen Delivery Method Room Air Room Air Room Air 03/02/25 09:06 Temperature Pulse Rate 52 Respiratory Rate Blood Pressure 124/82 Pulse Oximetry Oxygen Delivery Method BMI result Body Mass Index 26.3 Labs 03/01/25 04:00 03/02/25 07:41 Labs: Laboratory Results - last 48 hr 03/01/25 03/01/25 03/01/25 04:00 04: 11:09 WBC 7.6 RBC 4.73 Hgb 14.1 Hct 40.9 L MCV 86.5 MCH 29.8 MCHC 34.5 RDW 12.0 Plt Count 254 MPV 10.4 Immature Gran % (Auto) 0.3 Neut % (Auto) 69.2 Lymph % (Auto) 22.4 [place] % (Auto) 6.9 Eos % (Auto) 0.5 Baso % (Auto) 0.7 Lymph # (Auto) 1.7 [place] # (Auto) 0.5 Eos # (Auto) 0.0 Baso # (Auto) 0.1 Abs Immat Gran (auto) 0.02 Absolute Neuts (auto) 5.3 Absolute Nucleated RBC 0.000 Nucleated RBC % (auto) 0.0 Sodium 138 Potassium 3.9 Chloride 105 Carbon Dioxide 22 Anion Gap 15 BUN 22 H Creatinine 0.97 Estim Creat Clear Calc 100.9 Estimated GFR > 60 Random Glucose 102 Estimat Average Glucose Hemoglobin A1c % Calcium 9.3 Total Bilirubin 0.6 AST 31 ALT 19 Alkaline Phosphatase 90 Total Protein 7.4 Albumin 4.5 Triglycerides Cholesterol LDL Cholesterol, Calc HDL Cholesterol Urine Color Yellow Urine Appearance Clear Urine pH 5.5 Ur Specific [place] 1.025 Urine Protein Negative Urine Glucose (UA) Negative Urine Ketones 15 Urine Blood Negative Urine Nitrite Negative Ur Leukocyte Esterase Negative Urine Opiates Screen POSITIVE H Ur Buprenorphine Scrn Positive H Ur Oxycodone Screen Not Detected Urine Methadone Screen Not Detected Urine Fentanyl Screen POSITIVE H Ur Barbiturates Screen Not Detected Ur Phencyclidine Scrn Not Detected Ur Amphetamines Screen Not Detected U Benzodiazepines Scrn Not Detected Urine Cocaine Screen POSITIVE H U Marijuana (THC) Screen POSITIVE H Ethyl Alcohol < 10 03/02/25 07:41 WBC RBC Hgb Hct MCV MCH MCHC RDW Plt Count MPV Immature Gran % (Auto) Neut % (Auto) Lymph % (Auto) [place] % (Auto) Eos % (Auto) Baso % (Auto) Lymph # (Auto) [place] # (Auto) Eos # (Auto) Baso # (Auto) Abs Immat Gran (auto) Absolute Neuts (auto) Absolute Nucleated RBC Nucleated RBC % (auto) Sodium 140 Potassium 4.2 Chloride 107 Carbon Dioxide 24 Anion Gap 13 BUN 14 Creatinine 0.98 Estim Creat Clear Calc 92.0 Estimated GFR > 60 Random Glucose 108 Estimat Average Glucose 111 Hemoglobin A1c % 5.5 Calcium 9.5 Total Bilirubin 0.2 AST 20 ALT 21 Alkaline Phosphatase 91 Total Protein 6.7 Albumin 4.1 Triglycerides 84 Cholesterol 116 LDL Cholesterol, Calc 53 HDL Cholesterol 47 Urine Color Urine Appearance Urine pH Ur Specific [place] Urine Protein Urine Glucose (UA) Urine Ketones Urine Blood Urine Nitrite Ur Leukocyte Esterase Urine Opiates Screen Ur Buprenorphine Scrn Ur Oxycodone Screen Urine Methadone Screen Urine Fentanyl Screen Ur Barbiturates Screen Ur Phencyclidine Scrn Ur Amphetamines Screen U Benzodiazepines Scrn Urine Cocaine Screen U Marijuana (THC) Screen Ethyl Alcohol Medications Medications Current Medications Acetaminophen (Acetaminophen 325 Mg Tablet) 650 mg PO Q6H PRN PRN Reason: Headache/Pain, Scale 1-10 Al Hydroxide/Mg Hydroxide (Magnesium Hydrox/Alum Hydrox 30 Ml Oral.Susp) 30 ml PO Q6H PRN PRN Reason: Heartburn/Nausea Amlodipine Besylate (Amlodipine Besylate 5 Mg Tablet) 5 mg PO DAILY [facility]; Protocol Last Admin: 03/02/25 09:08 Dose: 5 mg Buprenorphine/Naloxone (Buprenorphine/Naloxone 8/2 Mg Film) 1 film SUBLINGUAL TID [facility] Last Admin: 03/02/25 09:00 Dose: 1 film Escitalopram Oxalate (Escitalopram Oxalate 20 Mg Tablet) 20 mg PO DAILY [facility] Last Admin: 03/02/25 08:59 Dose: 20 mg Gabapentin (Gabapentin 100 Mg Capsule) 100 mg PO TID [facility] Last Admin: 03/02/25 08:59 Dose: 100 mg Hydroxyzine HCl (Hydroxyzine Hcl 50 Mg Tablet) 50 mg PO Q4H PRN PRN Reason: anxiety Last Admin: 03/02/25 00:42 Dose: 50 mg Hydroxyzine HCl (Hydroxyzine Hcl 25 Mg Tablet) 25 mg PO Q6H PRN PRN Reason: mild anxiety Magnesium Hydroxide (Milk Of Magnesia 30 Ml Oral.Susp) 30 ml PO DAILY PRN PRN Reason: Constipation Melatonin (Melatonin 3 Mg Tablet) 3 mg PO BEDTIME [facility] Last Admin: 03/01/25 22:06 Dose: 3 mg Nicotine Polacrilex (Nicotine Polacrilex 2 Mg Gum) 4 mg BUCCAL Q2H PRN PRN Reason: Nicotine Cravings Last Admin: 03/02/25 11:47 Dose: 4 mg Trazodone HCl (Trazodone Hcl 50 Mg Tablet) 50 mg PO BEDTIME MRX1 PRN PRN Reason: Insomnia Allergies Allergies Allergy/AdvReac Type Severity Reaction Status Date / Time No Known Allergies Allergy Verified 03/01/25 03:34 Assessment & Plan Assessment & Plan (1) MDD (major depressive disorder), recurrent episode, moderate: Status: Acute Code(s): F33.1 - Major depressive disorder, recurrent, moderate (2) PTSD (post-traumatic stress disorder): Status: Acute Code(s): F43.10 - Post-traumatic stress disorder, unspecified (3) Opioid use disorder: Status: Acute Code(s): F11.90 - Opioid use, unspecified, uncomplicated (4) Cocaine use disorder: Status: Acute Code(s): F14.10 - Cocaine abuse, uncomplicated Plan Patient is a 49-year-old male with history of MDD, PTSD, opiate use disorder and cocaine use disorder who self presented to ER due to increased depression, anxiety, hallucinations and requesting treatment for substance use. Plan: CV 15 minute safety checks Continue home medications Obtain collateral Referral to outpatient psychiatric providers Encourage groups Referral to substance abuse program Discharge planning 03/02: continue current management and treatment plan. Reason for continued inpatient stay Substantial Risk for: inability to function and rapid decompensation Time Spent With Patient Time: Total time managing care of this patient today ____ minutes.
[2025-03-02 19:38] VITALS: BP 158/93; PULSE 52; RESP 17; TEMP 36.7; O2SAT 97
[2025-03-02] MEDS: Melatonin 3 MG TABLET PO (22:01)
[2025-03-03] MEDS: hydrOXYzine HCL 25 MG TABLET PO (00:02)
[2025-03-03 07:38] VITALS: BP 147/86; PULSE 48; RESP 16; TEMP 36.4; O2SAT 97
[2025-03-03 08:47] VITALS: BP 136/77; PULSE 52; RESP 16; TEMP 36.8; O2SAT 97
[2025-03-03] MEDS: amLODIPine Besylate 5 MG TABLET PO (08:48)
[2025-03-03] MEDS: Buprenorphine/Naloxone 8/2 mg FILM 1 FILM SUBLINGUAL ×3 (08:49→20:54)
[2025-03-03] MEDS: Escitalopram Oxalate 20 MG TABLET PO (08:49)
[2025-03-03] MEDS: Gabapentin 100 MG CAPSULE PO ×3 (08:49→20:53)
[2025-03-03] MEDS: Nicotine Polacrilex 2 MG GUM 4 MG BUCCAL ×2 (10:44→14:55)
--- NOTE | 2025-03-03 14:28 | HO.PSYCHPN ---
Subjective Subjective Date of Service: 03/03/25 Reason For Visit: crisis Interim History: Patient seen and discussed. Patient reports he didn't sleep last night. He is restless and somewhat irritable. He is anxious and depressed. Tolerating medications. Denies SI. Engaged in the milieu. Review of Systems Review of Systems Yes all other systems are reviewed and are negative Mental Status Exam Mental Status Exam Narrative: Pt is alert and oriented; behavior is cooperative and calm; dressed in casual attire; mood is described as depressed and anxious ; eye contact appropriate; Speech is normal rate, volume and not pressured; thought process is organized and goal directed; Thought content is on tx; otherwise pertinent to relevant topics and without any delusional content, paranoid ideations or grandiosity; denies SI/HI/VH/AH. Diagnostics Vital Signs (24Hr): Vital Signs - 24 hr 03/02/25 19:38 03/03/25 07:38 03/03/25 08:47 Temperature 98.0 F 97.5 F 98.3 F Pulse Rate 52 48 L 52 Respiratory Rate 17 16 16 Blood Pressure 158/93 H 147/86 H 136/77 Pulse Oximetry 97 97 97 Oxygen Delivery Method Room Air Room Air Room Air BMI result Body Mass Index 26.3 Labs 03/01/25 04:00 03/02/25 07:41 Labs: Laboratory Results - last 48 hr 03/02/25 07:41 Sodium 140 Potassium 4.2 Chloride 107 Carbon Dioxide 24 Anion Gap 13 BUN 14 Creatinine 0.98 Estim Creat Clear Calc 92.0 Estimated GFR > 60 Random Glucose 108 Estimat Average Glucose 111 Hemoglobin A1c % 5.5 Calcium 9.5 Total Bilirubin 0.2 AST 20 ALT 21 Alkaline Phosphatase 91 Total Protein 6.7 Albumin 4.1 Triglycerides 84 Cholesterol 116 LDL Cholesterol, Calc 53 HDL Cholesterol 47 Medications Medications Current Medications Acetaminophen (Acetaminophen 325 Mg Tablet) 650 mg PO Q6H PRN PRN Reason: Headache/Pain, Scale 1-10 Al Hydroxide/Mg Hydroxide (Magnesium Hydrox/Alum Hydrox 30 Ml Oral.Susp) 30 ml PO Q6H PRN PRN Reason: Heartburn/Nausea Amlodipine Besylate (Amlodipine Besylate 5 Mg Tablet) 5 mg PO DAILY [facility]; Protocol Last Admin: 03/03/25 08:48 Dose: 5 mg Buprenorphine/Naloxone (Buprenorphine/Naloxone 8/2 Mg Film) 1 film SUBLINGUAL TID [facility] Last Admin: 03/03/25 08:49 Dose: 1 film Escitalopram Oxalate (Escitalopram Oxalate 20 Mg Tablet) 20 mg PO DAILY [facility] Last Admin: 03/03/25 08:49 Dose: 20 mg Gabapentin (Gabapentin 100 Mg Capsule) 100 mg PO TID [facility] Last Admin: 03/03/25 08:49 Dose: 100 mg Hydroxyzine HCl (Hydroxyzine Hcl 50 Mg Tablet) 50 mg PO Q4H PRN PRN Reason: anxiety Last Admin: 03/02/25 20:01 Dose: 50 mg Hydroxyzine HCl (Hydroxyzine Hcl 25 Mg Tablet) 25 mg PO Q6H PRN PRN Reason: mild anxiety Last Admin: 03/03/25 00:02 Dose: 25 mg Magnesium Hydroxide (Milk Of Magnesia 30 Ml Oral.Susp) 30 ml PO DAILY PRN PRN Reason: Constipation Melatonin (Melatonin 3 Mg Tablet) 3 mg PO BEDTIME [facility] Last Admin: 03/02/25 22:01 Dose: 3 mg Nicotine Polacrilex (Nicotine Polacrilex 2 Mg Gum) 4 mg BUCCAL Q2H PRN PRN Reason: Nicotine Cravings Last Admin: 03/03/25 10:44 Dose: 4 mg Trazodone HCl (Trazodone Hcl 50 Mg Tablet) 50 mg PO BEDTIME MRX1 PRN PRN Reason: Insomnia Allergies Allergies Allergy/AdvReac Type Severity Reaction Status Date / Time No Known Allergies Allergy Verified 03/01/25 03:34 Assessment & Plan Assessment & Plan (1) MDD (major depressive disorder), recurrent episode, moderate: Status: Acute Code(s): F33.1 - Major depressive disorder, recurrent, moderate (2) PTSD (post-traumatic stress disorder): Status: Acute Code(s): F43.10 - Post-traumatic stress disorder, unspecified (3) Opioid use disorder: Status: Acute Code(s): F11.90 - Opioid use, unspecified, uncomplicated (4) Cocaine use disorder: Status: Acute Code(s): F14.10 - Cocaine abuse, uncomplicated Plan Patient is a 49-year-old male with history of MDD, PTSD, opiate use disorder and cocaine use disorder who self presented to ER due to increased depression, anxiety, hallucinations and requesting treatment for substance use. Plan: CV 15 minute safety checks Continue home medications Obtain collateral Referral to outpatient psychiatric providers Encourage groups Referral to substance abuse program Discharge planning 4/26: continue current management and treatment plan. 03/03: Add Clonidine 0.1 mg TID for anxiety and ?opioid withdrawal. Make Trazodone scheduled (he didn't take a PRN Trazodone last night). Continue current management and treatment plan. Reason for continued inpatient stay Substantial Risk for: harm to self, inability to function and rapid decompensation Time Spent With Patient Time: Total time managing care of this patient today ____ minutes.
[2025-03-03 14:52] VITALS: BP 140/97; PULSE 50
[2025-03-03] MEDS: cloNIDine HCL 0.1 MG TABLET PO ×2 (14:53→20:53)
[2025-03-03 20:45] VITALS: BP 128/89; PULSE 62; RESP 17; TEMP 36.7; O2SAT 97
[2025-03-03] MEDS: Melatonin 3 MG TABLET PO (20:53)
[2025-03-04] MEDS: hydrOXYzine HCL 50 MG TABLET PO ×2 (01:54→05:55)
[2025-03-04] MEDS: Nicotine Polacrilex 2 MG GUM 4 MG BUCCAL ×2 (05:56→22:07)
[2025-03-04 07:35] VITALS: BP 129/85; PULSE 56; RESP 16; TEMP 36.4; O2SAT 97
[2025-03-04] MEDS: amLODIPine Besylate 5 MG TABLET PO (08:17)
[2025-03-04] MEDS: Escitalopram Oxalate 20 MG TABLET PO (08:17)
[2025-03-04] MEDS: Gabapentin 100 MG CAPSULE PO ×3 (08:18→21:15)
[2025-03-04] MEDS: cloNIDine HCL 0.1 MG TABLET PO ×3 (08:18→21:15)
[2025-03-04] MEDS: Buprenorphine/Naloxone 8/2 mg FILM 1 FILM SUBLINGUAL ×3 (08:19→21:15)
--- NOTE | 2025-03-04 10:24 | HO.PSYCHPN ---
Subjective Subjective Date of Service: 03/04/25 Reason For Visit: crisis Subjective Notes: Conditional Voluntary Interim History: Laying in bed. Napping. Patient reports feeling a little anxious and depressed ; improved since admission. Per nursing, pt did not sleep well last night. denies SI/HI/VH/AH. Per outreach and education social worker, pt does not want to go to [facility] and plans on returning to his cousins house. Plan for discharge this week if continues to improve. Medication Compliance: Yes Side effects from medications: No Attending Groups: No Mental Status Exam Mental Status Exam Narrative: Pt is alert and oriented; behavior is cooperative and calm; dressed in casual attire; mood is described as depressed and anxious ; eye contact appropriate; Speech is normal rate, volume and not pressured; thought process is organized; Thought content is on tx; denies SI/HI/VH/AH. Diagnostics Vital Signs (24Hr): Vital Signs - 24 hr 03/03/25 14:52 03/03/25 20:45 03/04/25 07:35 Temperature 98.1 F 97.5 F Pulse Rate 50 62 56 Respiratory Rate 17 16 Blood Pressure 140/97 H 128/89 129/85 Pulse Oximetry 97 97 Oxygen Delivery Method Room Air Room Air BMI result Body Mass Index 26.3 Labs 03/01/25 04:00 03/02/25 07:41 Medications Medications Current Medications Acetaminophen (Acetaminophen 325 Mg Tablet) 650 mg PO Q6H PRN PRN Reason: Headache/Pain, Scale 1-10 Al Hydroxide/Mg Hydroxide (Magnesium Hydrox/Alum Hydrox 30 Ml Oral.Susp) 30 ml PO Q6H PRN PRN Reason: Heartburn/Nausea Amlodipine Besylate (Amlodipine Besylate 5 Mg Tablet) 5 mg PO DAILY [facility]; Protocol Last Admin: 03/04/25 08:17 Dose: 5 mg Buprenorphine/Naloxone (Buprenorphine/Naloxone 8/2 Mg Film) 1 film SUBLINGUAL TID [facility] Last Admin: 03/04/25 08:19 Dose: 1 film Clonidine HCl (Clonidine Hcl 0.1 Mg Tablet) 0.1 mg PO TID [facility]; Protocol Last Admin: 03/04/25 08:18 Dose: 0.1 mg Escitalopram Oxalate (Escitalopram Oxalate 20 Mg Tablet) 20 mg PO DAILY [facility] Last Admin: 03/04/25 08:17 Dose: 20 mg Gabapentin (Gabapentin 100 Mg Capsule) 100 mg PO TID [facility] Last Admin: 03/04/25 08:18 Dose: 100 mg Hydroxyzine HCl (Hydroxyzine Hcl 50 Mg Tablet) 50 mg PO Q4H PRN PRN Reason: anxiety Last Admin: 03/04/25 05:55 Dose: 50 mg Magnesium Hydroxide (Milk Of Magnesia 30 Ml Oral.Susp) 30 ml PO DAILY PRN PRN Reason: Constipation Melatonin (Melatonin 3 Mg Tablet) 3 mg PO BEDTIME [facility] Last Admin: 03/03/25 20:53 Dose: 3 mg Nicotine Polacrilex (Nicotine Polacrilex 2 Mg Gum) 4 mg BUCCAL Q2H PRN PRN Reason: Nicotine Cravings Last Admin: 03/04/25 05:56 Dose: 4 mg Trazodone HCl (Trazodone Hcl 50 Mg Tablet) 50 mg PO BEDTIME MRX1 [facility] Last Admin: 03/03/25 23:23 Dose: Not Given Allergies Allergies Allergy/AdvReac Type Severity Reaction Status Date / Time No Known Allergies Allergy Verified 03/01/25 03:34 Assessment & Plan Assessment & Plan (1) MDD (major depressive disorder), recurrent episode, moderate: Status: Acute Code(s): F33.1 - Major depressive disorder, recurrent, moderate (2) PTSD (post-traumatic stress disorder): Status: Acute Code(s): F43.10 - Post-traumatic stress disorder, unspecified (3) Opioid use disorder: Status: Acute Code(s): F11.90 - Opioid use, unspecified, uncomplicated (4) Cocaine use disorder: Status: Acute Code(s): F14.10 - Cocaine abuse, uncomplicated Plan Patient is a 49-year-old male with history of MDD, PTSD, opiate use disorder and cocaine use disorder who self presented to ER due to increased depression, anxiety, hallucinations and requesting treatment for substance use. Plan: CV 15 minute safety checks Continue home medications Obtain collateral Referral to outpatient psychiatric providers Encourage groups Referral to substance abuse program Discharge planning 03/02: continue current management and treatment plan. 03/03: Add Clonidine 0.1 mg TID for anxiety and ?opioid withdrawal. Make Trazodone scheduled (he didn't take a PRN Trazodone last night). Continue current management and treatment plan. 03/04: Laying in bed. Napping. Patient reports feeling a little anxious and depressed ; improved since admission. Per nursing, pt did not sleep well last night. denies SI/HI/VH/AH. Per outreach and education social worker, pt does not want to go to [facility] and plans on returning to his cousins house. Plan for discharge this week if continues to improve. Patient educated on: diagnosis and medication risk/benefits Reason for continued inpatient stay Substantial Risk for: med/psych decompensation Time Spent With Patient Time: Total time managing care of this patient today _20___ minutes.
[2025-03-04 14:46] VITALS: BP 120/77; PULSE 59; RESP 16; O2SAT 95
[2025-03-04 21:00] VITALS: BP 130/82; PULSE 50; RESP 16; TEMP 37.7; O2SAT 97
[2025-03-04] MEDS: Melatonin 3 MG TABLET PO (21:15)
[2025-03-05] MEDS: hydrOXYzine HCL 50 MG TABLET PO (01:53)
[2025-03-05] MEDS: Nicotine Polacrilex 2 MG GUM 4 MG BUCCAL ×2 (05:21→14:38)
[2025-03-05 07:35] VITALS: BP 134/74; PULSE 51; RESP 16; TEMP 36.8; O2SAT 99
[2025-03-05] MEDS: Gabapentin 100 MG CAPSULE PO ×3 (09:11→20:28)
[2025-03-05] MEDS: Escitalopram Oxalate 20 MG TABLET PO (09:11)
[2025-03-05] MEDS: amLODIPine Besylate 5 MG TABLET PO (09:11)
[2025-03-05] MEDS: Buprenorphine/Naloxone 8/2 mg FILM 1 FILM SUBLINGUAL ×3 (09:11→20:28)
[2025-03-05] MEDS: cloNIDine HCL 0.1 MG TABLET PO ×3 (09:11→20:27)
--- NOTE | 2025-03-05 10:23 | HO.PSYCHPN ---
Subjective Subjective Date of Service: 03/05/25 Reason For Visit: crisis Subjective Notes: Conditional Voluntary Interim History: Patient reports feeling better today; per nursing, slept 7 hours. denies SI/HI/VH/AH. Plan to discharge to home tomorrow; pt aware. Patient plans on following up with his outpatient providers. Medication Compliance: Yes Side effects from medications: No Attending Groups: No Mental Status Exam Mental Status Exam Narrative: Pt is alert and oriented; behavior is cooperative and calm; dressed in casual attire; mood is described as good ; eye contact appropriate; Speech is normal rate, volume and not pressured; thought process is organized; Thought content is on discharge; denies SI/HI/VH/AH. Diagnostics Vital Signs (24Hr): Vital Signs - 24 hr 03/04/25 14:46 03/04/25 21:00 03/05/25 07:35 Temperature 99.8 F 98.3 F Pulse Rate 59 50 51 Respiratory Rate 16 16 16 Blood Pressure 120/77 130/82 134/74 Pulse Oximetry 95 97 99 Oxygen Delivery Method Room Air Room Air Room Air BMI result Body Mass Index 26.3 Labs 03/01/25 04:00 03/02/25 07:41 Medications Medications Current Medications Acetaminophen (Acetaminophen 325 Mg Tablet) 650 mg PO Q6H PRN PRN Reason: Headache/Pain, Scale 1-10 Al Hydroxide/Mg Hydroxide (Magnesium Hydrox/Alum Hydrox 30 Ml Oral.Susp) 30 ml PO Q6H PRN PRN Reason: Heartburn/Nausea Amlodipine Besylate (Amlodipine Besylate 5 Mg Tablet) 5 mg PO DAILY [facility]; Protocol Last Admin: 03/05/25 09:11 Dose: 5 mg Buprenorphine/Naloxone (Buprenorphine/Naloxone 8/2 Mg Film) 1 film SUBLINGUAL TID [facility] Last Admin: 03/05/25 09:11 Dose: 1 film Clonidine HCl (Clonidine Hcl 0.1 Mg Tablet) 0.1 mg PO TID [facility]; Protocol Last Admin: 03/05/25 09:11 Dose: 0.1 mg Escitalopram Oxalate (Escitalopram Oxalate 20 Mg Tablet) 20 mg PO DAILY [facility] Last Admin: 03/05/25 09:11 Dose: 20 mg Gabapentin (Gabapentin 100 Mg Capsule) 100 mg PO TID [facility] Last Admin: 03/05/25 09:11 Dose: 100 mg Hydroxyzine HCl (Hydroxyzine Hcl 50 Mg Tablet) 50 mg PO Q4H PRN PRN Reason: anxiety Last Admin: 03/05/25 01:53 Dose: 50 mg Magnesium Hydroxide (Milk Of Magnesia 30 Ml Oral.Susp) 30 ml PO DAILY PRN PRN Reason: Constipation Melatonin (Melatonin 3 Mg Tablet) 3 mg PO BEDTIME [facility] Last Admin: 03/04/25 21:15 Dose: 3 mg Nicotine Polacrilex (Nicotine Polacrilex 2 Mg Gum) 4 mg BUCCAL Q2H PRN PRN Reason: Nicotine Cravings Last Admin: 03/05/25 05:21 Dose: 4 mg Trazodone HCl (Trazodone Hcl 50 Mg Tablet) 50 mg PO BEDTIME MRX1 [facility] Last Admin: 03/04/25 21:56 Dose: Not Given Allergies Allergies Allergy/AdvReac Type Severity Reaction Status Date / Time No Known Allergies Allergy Verified 03/01/25 03:34 Assessment & Plan Assessment & Plan (1) MDD (major depressive disorder), recurrent episode, moderate: Status: Acute Code(s): F33.1 - Major depressive disorder, recurrent, moderate (2) PTSD (post-traumatic stress disorder): Status: Acute Code(s): F43.10 - Post-traumatic stress disorder, unspecified (3) Opioid use disorder: Status: Acute Code(s): F11.90 - Opioid use, unspecified, uncomplicated (4) Cocaine use disorder: Status: Acute Code(s): F14.10 - Cocaine abuse, uncomplicated Plan Patient is a 49-year-old male with history of MDD, PTSD, opiate use disorder and cocaine use disorder who self presented to ER due to increased depression, anxiety, hallucinations and requesting treatment for substance use. Plan: CV 15 minute safety checks Continue home medications Obtain collateral Referral to outpatient psychiatric providers Encourage groups Referral to substance abuse program Discharge planning 03/02: continue current management and treatment plan. 03/03: Add Clonidine 0.1 mg TID for anxiety and ?opioid withdrawal. Make Trazodone scheduled (he didn't take a PRN Trazodone last night). Continue current management and treatment plan. 03/04: Laying in bed. Napping. Patient reports feeling a little anxious and depressed ; improved since admission. Per nursing, pt did not sleep well last night. denies SI/HI/VH/AH. Per social science professor, pt does not want to go to [facility] and plans on returning to his cousins house. Plan for discharge this week if continues to improve. 03/05: Patient reports feeling better today; per nursing, slept 7 hours. denies SI/HI/VH/AH. encouraged to attend groups. Plan to discharge home tomorrow; pt aware. Patient plans on following up with his outpatient providers. Patient educated on: diagnosis, medication risk/benefits and therapeutic strategies Reason for continued inpatient stay Substantial Risk for: stable for discharge Time Spent With Patient Time: Total time managing care of this patient today _20___ minutes.
[2025-03-05 14:35] VITALS: BP 135/67
[2025-03-05 20:00] VITALS: BP 131/78; PULSE 69; RESP 16; TEMP 36.9; O2SAT 99
[2025-03-05] MEDS: traZODone HCL 50 MG TABLET PO (20:27)
[2025-03-05] MEDS: Melatonin 3 MG TABLET PO (20:28)
[2025-03-06 07:33] VITALS: BP 138/68; PULSE 53; RESP 16; TEMP 36.8; O2SAT 99
[2025-03-06 08:56] VITALS: BP 138/68
[2025-03-06] MEDS: amLODIPine Besylate 5 MG TABLET PO (08:56)
[2025-03-06] MEDS: cloNIDine HCL 0.1 MG TABLET PO (08:56)
[2025-03-06] MEDS: Buprenorphine/Naloxone 8/2 mg FILM 1 FILM SUBLINGUAL (08:57)
[2025-03-06] MEDS: Escitalopram Oxalate 20 MG TABLET PO (08:57)
[2025-03-06] MEDS: Gabapentin 100 MG CAPSULE PO (08:57)
[2025-03-06] MEDS: Naloxone HCl Nasal TAKE HOME 4 MG SPRAY 8 MG NOSTRILALT (08:59)
--- NOTE | 2025-03-06 09:21 | PM.PSYDC ---
DS: Providers Provider Date of Service: 03/06/25 Date of admission: 03/01/25 13:22 Date of discharge: 03/06/25 Primary care physician: Lexy Odom MD Admitting clinician: Ramandeep Meredith Attending physician on admission: Stephen Ferro Attending physician on discharge: Stephen Ferro Discharging clinician: Ramandeep Meredith DS: Diagnosis Discharge Diagnosis (1) MDD (major depressive disorder), recurrent episode, moderate: Status: Acute (2) PTSD (post-traumatic stress disorder): Status: Acute (3) Opioid use disorder: Status: Acute (4) Cocaine use disorder: Status: Acute DS: Medications Discharge Medications Home Medications: Home Medications ?Medication ?Instructions ?Recorded ?Confirmed amlodipine 5 mg tablet 5 mg PO DAILY 01/21/25 03/01/25 Previous Rx's ?Medication ?Instructions ?Recorded buprenorphine 8 mg-naloxone 2 mg 1 film sublingual TID 7 days #21 ea 03/05/25 sublingual film (Suboxone) clonidine HCl 0.1 mg tablet 0.1 mg PO TID 30 days #90 tabs 03/05/25 escitalopram oxalate 20 mg tablet 20 mg PO DAILY 30 days #30 tabs 03/05/25 gabapentin 100 mg capsule 100 mg PO TID 30 days #90 caps 03/05/25 hydroxyzine pamoate 50 mg capsule 50 mg PO BID PRN anxiety 30 days 03/05/25 #60 caps Mental Status Exam Mental Status Exam Narrative: Pt is alert and oriented; behavior is cooperative and calm; dressed in casual attire; mood is described as good ; eye contact appropriate; Speech is normal rate, volume and not pressured; thought process is organized; Thought content is on discharge; denies SI/HI/VH/AH. Data Data Completed and Pending Completed studies during hospitalization [Text1]: 03/01/25 03/01/25 03/01/25 04:00 04: 11:09 WBC 7.6 RBC 4.73 Hgb 14.1 Hct 40.9 L MCV 86.5 MCH 29.8 MCHC 34.5 RDW 12.0 Plt Count 254 MPV 10.4 Immature Gran % (Auto) 0.3 Neut % (Auto) 69.2 Lymph % (Auto) 22.4 [place] % (Auto) 6.9 Eos % (Auto) 0.5 Baso % (Auto) 0.7 Lymph # (Auto) 1.7 [place] # (Auto) 0.5 Eos # (Auto) 0.0 Baso # (Auto) 0.1 Abs Immat Gran (auto) 0.02 Absolute Neuts (auto) 5.3 Absolute Nucleated RBC 0.000 Nucleated RBC % (auto) 0.0 Sodium 138 Potassium 3.9 Chloride 105 Carbon Dioxide 22 Anion Gap 15 BUN 22 H Creatinine 0.97 Estim Creat Clear Calc 100.9 Estimated GFR > 60 Random Glucose 102 Estimat Average Glucose Hemoglobin A1c % Calcium 9.3 Total Bilirubin 0.6 AST 31 ALT 19 Alkaline Phosphatase 90 Total Protein 7.4 Albumin 4.5 Triglycerides Cholesterol LDL Cholesterol, Calc HDL Cholesterol Urine Color Yellow Urine Appearance Clear Urine pH 5.5 Ur Specific [place] 1.025 Urine Protein Negative Urine Glucose (UA) Negative Urine Ketones 15 Urine Blood Negative Urine Nitrite Negative Ur Leukocyte Esterase Negative Urine Opiates Screen POSITIVE H Ur Buprenorphine Scrn Positive H Ur Oxycodone Screen Not Detected Urine Methadone Screen Not Detected Urine Fentanyl Screen POSITIVE H Ur Barbiturates Screen Not Detected Ur Phencyclidine Scrn Not Detected Ur Amphetamines Screen Not Detected U Benzodiazepines Scrn Not Detected Urine Cocaine Screen POSITIVE H U Marijuana (THC) Screen POSITIVE H Ethyl Alcohol < 10 03/02/25 07:41 WBC RBC Hgb Hct MCV MCH MCHC RDW Plt Count MPV Immature Gran % (Auto) Neut % (Auto) Lymph % (Auto) [place] % (Auto) Eos % (Auto) Baso % (Auto) Lymph # (Auto) [place] # (Auto) Eos # (Auto) Baso # (Auto) Abs Immat Gran (auto) Absolute Neuts (auto) Absolute Nucleated RBC Nucleated RBC % (auto) Sodium 140 Potassium 4.2 Chloride 107 Carbon Dioxide 24 Anion Gap 13 BUN 14 Creatinine 0.98 Estim Creat Clear Calc 92.0 Estimated GFR > 60 Random Glucose 108 Estimat Average Glucose 111 Hemoglobin A1c % 5.5 Calcium 9.5 Total Bilirubin 0.2 AST 20 ALT 21 Alkaline Phosphatase 91 Total Protein 6.7 Albumin 4.1 Triglycerides 84 Cholesterol 116 LDL Cholesterol, Calc 53 HDL Cholesterol 47 Urine Color Urine Appearance Urine pH Ur Specific [place] Urine Protein Urine Glucose (UA) Urine Ketones Urine Blood Urine Nitrite Ur Leukocyte Esterase Urine Opiates Screen Ur Buprenorphine Scrn Ur Oxycodone Screen Urine Methadone Screen Urine Fentanyl Screen Ur Barbiturates Screen Ur Phencyclidine Scrn Ur Amphetamines Screen U Benzodiazepines Scrn Urine Cocaine Screen U Marijuana (THC) Screen Ethyl Alcohol DS: Summary Hospital Course Hospital Course: Patient is a 49-year-old male with history of MDD, PTSD, opiate use disorder and cocaine use disorder who self presented to ER due to increased depression, anxiety, hallucinations and requesting treatment for substance use. Per crisis report, on arrival to ER patient denied SI but later stated his mind is not stable and sometimes he has suicidal thoughts. History of multiple detox admissions and inpatient psychiatric admissions. Patient can not identify any triggering event. Patient reports fair sleep and appetite. He reported suicidal ideation with no plan. Daily substance use of cocaine and heroin. During admission assessment, patient presents alert and oriented x3. Calm and cooperative. Patient reports feeling depressed and anxious; patient stated, a lot of things are making me depressed. My [id number] last Tuesday. I am using drugs to take my pain away. I do not want to . I want to get my medication right and go to a program . Patient reports using a gram of cocaine a day, a bundle of heroin a day and smoking marijuana. Utox positive for opiates, buprenorphine, fentanyl, cocaine, marijuana. Patient reports he stopped his psychiatric medications a few months ago and was obtaining them from [facility]. He reports not having outpatient psychiatric providers at this time but would like referrals. denies SI/HI/VH/AH. Plan: CV 15 minute safety checks Continue home medications Obtain collateral Referral to outpatient psychiatric providers Encourage groups Referral to substance abuse program Discharge planning Add Clonidine 0.1 mg TID for anxiety and ?opioid withdrawal. Make Trazodone scheduled (he didn't take a PRN Trazodone last night). Continue current management and treatment plan. Laying in bed. Napping. Patient reports feeling a little anxious and depressed ; improved since admission. Per nursing, pt did not sleep well last night. denies SI/HI/VH/AH. Per geriatric social worker, pt does not want to go to [facility] and plans on returning to his cousins house. Plan for discharge this week if continues to improve. Patient reports feeling better today; per nursing, slept 7 hours. denies SI/HI/VH/AH. encouraged to attend groups. Plan to discharge home tomorrow; pt aware. Patient plans on following up with his outpatient providers. Patient reports feeling good and ready for discharge today. denies SI/HI/VH/AH. Patient plans on following up with his outpatient providers. Status at Discharge Cognitive/behavioral status at discharge: Patient has insight and demonstrates good judgment in terms of wanting to pursue treatment. Patient has a safety plan that includes presenting to the closest ER or calling 911 if feeling unsafe. Functional status at discharge: independent ambulation Overall status at discharge: patient is back to baseline Time Spent with Patient Time attestation: Total time managing care of this patient today _20___ minutes. Time spent: Less than 30 minutes Discharge Plan Discharge Anticipated Discharge Date/Time: 03/06/25 11:00 Patient Disposition: Home, Self-Care Discharge Diagnosis: MDD, PTSD, opioid use d/o, cocaine use d/o Referrals: [facility] [Other] - 1 Week (Walk in hours to the [facility] are Tuesday-Tuesday from 10am-12pm. Please bring your discharge paperwork, ID, and insurance card. ) [facility] [Other] - 1 Week (Walk in hours are Tuesday-Tuesday 8am-8pm. Please bring your discharge paperwork, ID and insurance card. ) Lexy Iniguez MD [Primary Care Provider] - 03/12/25 1:15 pm (03-05-25 Your follow up appt has been scheduled for 5-6 @ 1:15pm with Dr. Jacob. This appt is with [facility] on the 2nd floor.) Discharge Medications: New clonidine HCl 0.1 mg Tablet 0.1 mg PO TID 30 Days Qty: 90 0RF Protocol: Hold for SBP< HOLD for SBP < : 90 Continued gabapentin 100 mg capsule 100 mg PO TID 30 Days Qty: 90 0RF escitalopram oxalate 20 mg tablet 20 mg PO DAILY 30 Days Qty: 30 0RF buprenorphine-naloxone [Suboxone] 8-2 mg film 1 film sublingual TID 7 Days Qty: 21 0RF amlodipine 5 mg tablet 5 mg PO DAILY Changed hydroxyzine pamoate 50 mg capsule 50 mg PO BID PRN (Reason: anxiety) 30 Days Qty: 60 0RF Discontinued nicotine (polacrilex) 4 mg gum 4 mg PO Q2H PRN (Reason: Nicotine Cravings) nicotine 21 mg/24 hr patch 24 hour 1 patch topical DAILY Discharge Orders: Discharge Order (Routine); Ordered 03/06/25 Ordered By: Ramandeep Meredith Diet: Regular diet Activity on Discharge: As tolerated Stand Alone Forms: Patient Portal Discharge page, Community Support Print Language: Haitian Care Plan Goals: Maintain mood and safe behaviors Take medications as prescribed Continue to pursue sobriety Practice coping skills Continue with outpatient providers and reach out to them as needed Health Concerns: Mood stability and behaviors Sobriety Plan of Treatment: Follow up with your PCP, psychiatric provider and other outpatient providers regarding above concerns Take medications as prescribed Assessment: Patient has insight and demonstrates good judgment in terms of wanting to pursue treatment. Patient has a safety plan that includes presenting to the closest ER or calling 911 if feeling unsafe. Discharge Date/Time: 03/06/25 10:50
== END 2025-03-06 10:50 | disposition home or self-care (01) | DRG 751 ==
LOC: HO.ED 06:46 → HO.PADLT16 13:42
PROVIDERS: Admitting Provider Registered Nurse; Emergency Provider Internal Medicine; PCP Student in an Organized Health Care Education/Training Program; Responsible Provider Registered Nurse; Visit Provider Psychiatry & Neurology Psychiatry
DX: F33.1 Major depressive disorder, recurrent, moderate (principal); F11.20 Opioid dependence, uncomplicated; F17.210 Nicotine dependence, cigarettes, uncomplicated; F43.10 Post-traumatic stress disorder, unspecified; F14.10 Cocaine abuse, uncomplicated; Z71.6 Tobacco abuse counseling; F19.10 Other psychoactive substance abuse, uncomplicated; Z79.899 Other long term (current) drug therapy
CPT/HCPCS: 36415; 80053; 80061; 80307; 81003; 83036; 85025; 93005; 99285; S9485

== ENCOUNTER → 2025-03-01 10:11 | Outpatient (BNV) | payer MEDICAID, SELFPAY | PROVIDERS: Admitting Provider Registered Nurse; Emergency Provider Internal Medicine; PCP Student in an Organized Health Care Education/Training Program; Responsible Provider Registered Nurse; Visit Provider Internal Medicine | DX: I49.9 Cardiac arrhythmia, unspecified (principal); R00.1 Bradycardia, unspecified | CPT/HCPCS: 93010 ==

== ENCOUNTER → 2025-03-01 13:22 | Outpatient (BNV) | payer OTHER, SELFPAY | PROVIDERS: Admitting Provider Registered Nurse; Emergency Provider Internal Medicine; PCP Student in an Organized Health Care Education/Training Program; Responsible Provider Registered Nurse; Visit Provider Registered Nurse | DX: F33.1 Major depressive disorder, recurrent, moderate (principal); F14.10 Cocaine abuse, uncomplicated; F11.90 Opioid use, unspecified, uncomplicated; F43.11 Post-traumatic stress disorder, acute | CPT/HCPCS: 99231; 99232; 99233 ==